=== PATIENT | male | born 1960 | race African-American/Black ===

== ENCOUNTER 2016-11-19 13:09 | Emergency (ER) | payer BC ==
--- NOTE | 2016-11-19 13:27 | EDPHY ---
H & P Time Seen by Provider: 11/19/16 13:27 Constitutional: Initial Vital Signs Temperature (C) 36.5 C 11/19/16 13:09 Heart Rate 97 11/19/16 13:09 Respiratory Rate 16 11/19/16 13:09 Blood Pressure 162/93 H 11/19/16 13:09 O2 Sat (%) 96 11/19/16 13:09 O2 Delivery Mode Room Air Allergies/Adverse Reactions: No Known Allergies Allergy (Verified 11/19/16 13:33) Home Medications: Medication Instructions Recorded Albuterol 11/19/16 Symbicort 160-4.5 Mcg Inh (*) 11/19/16 Medical Decision Making ED Course/Re-evaluation: CHIEF COMPLAINT: Alcohol intoxication, collar bone contusion HISTORY OF PRESENT ILLNESS: The patient is 56 y/o male arriving via EMS complaining of right collar bone pain after falling while intoxicated on the bus yesterday. He is also seeking help with detoxing from alcohol. His pain is mild in severity and does not affect his range of motion. He denies other injuries, loss of consciousness, weakness, or paresthesias. His last drink was today and he denies co-ingestion. Denies suicidal or homicidal behavior. REVIEW OF SYSTEMS: A 10 point review of systems was performed and is negative with the exception of the elements mentioned in the history of present illness. PHYSICAL EXAM: General Appearance: Alert, well hydrated, appropriate, and non-toxic appearing. Head: Atraumatic without scalp tenderness or obvious injury Eyes: Pupils equal, round, reactive to light and accommodation, EOMI, no trauma , no injection. Nose: Atraumatic, no rhinorrhea, clear. Throat: Mucus membranes moist. Neck: Supple, nontender, no lymphadenopathy. Respiratory: No retractions, no distress, no wheezes, and no accessory muscle use. Lungs are clear to auscultation bilaterally. Cardiovascular: Regular rate and rhythm, no murmurs, rubs, or gallops. Right radial pulse intact. Good capillary refill all extremities. Gastrointestinal: Abdomen is soft, nontender, non-distended, no masses, no rebound, no guarding, no peritoneal signs. Musculoskeletal: Normal active ROM of all extremities, atraumatic. Neurological: Alert, appropriate, and interactive. Nonfocal neuro exam. Skin: No rashes, good turgor, no nodules on palpation. PAST MEDICAL HISTORY: Alcohol abuse PAST SURGICAL HISTORY: Denies SOCIAL HISTORY: Daily alcohol use. Employed. DIFFERENTIAL DIAGNOSIS: The differential diagnosis for the patient's injury included but was not limited to fracture, ligamentous injury, contusion, muscular strain. MEDICAL DECISION MAKING: I serially examined this patient since the patient's arrival here in the emergency department. The patient continues to become more and more sober with each examination. I serially questioned the patient and the patient's story given initially has not changed. The patient still denies any other trauma, any head injury, and any illicit drug use. At this point, the patient is walking the department freely and is clinically sober. We're discharging the patient to the [facility] in stable condition. - Data Points Medications Given: Discontinued Medications Chlordiazepoxide (Librium 25 Mg Prepack#6) 1 btl TAKEHOME EDNOW ONE Stop: 11/19/16 13:45 Last Admin: 11/19/16 14:05 Dose: 1 btl Departure - Departure Disposition: Home, Routine, Self-Care Clinical Impression: Contusion Qualifiers: Encounter type: initial encounter Contusion area: shoulder Laterality: left Qualified Code(s): S40.012A - Contusion of left shoulder, initial encounter Alcoholic intoxication Qualifiers: Complication of substance-induced condition: uncomplicated Qualified Code(s): F10.920 - Alcohol use, unspecified with intoxication, uncomplicated Condition: Good Instructions: Alcohol Intoxication (ED), Alcohol Dependence (ED) Additional Instructions: Medically clear for detox. 1. Go directly to the [facility] for detox. You will be given a script for Librium to help with the detox process. 2. Follow up with a primary care provider in the next 1-2 weeks to establish care. Referrals: [facility] Detox 24 Hours [Outside] - As per Instructions Stand Alone Forms: Work Excuse Report Scribed for: Javier Nieto Report Scribed by: Sun Valera Date of Report: 11/19/16 Time of Report: 18:54
[2016-11-19 13:40] VITALS: BP 162/93; PULSE 97; RESP 16; TEMP 97.7; O2SAT 96
[2016-11-19] MEDS ORDERED: CHLORDIAZEPOXIDE 25MG PREPK#6 BTL TAKEHOME ONE (13:44)
== END 2016-11-19 14:06 | disposition home or self-care (01) ==
DX: S40.012A Contusion of left shoulder, initial encounter (principal); F10.920 Alcohol use, unspecified with intoxication, uncomplicated; W18.39XA Other fall on same level, initial encounter; Y92.811 Bus as the place of occurrence of the external cause

== ENCOUNTER 2017-01-14 03:30 | Emergency (ER) | payer BC ==
--- NOTE | 2017-01-14 03:32 | EDPHY ---
H & P HPI/ROS: HPI CHIEF COMPLAINT: Alcohol withdrawal, "I need librium" HISTORY OF PRESENT ILLNESS: This patient 56-year-old male, tells me he is an alcoholic and drinks vodka daily. His last drink was Friday night. He states that he decided call 911 this morning he feels like he is going to alcohol withdrawal. He states when he goes to alcohol draw feels like he can' t breathe gets panicky gets shaky. He states that he came to the emergency room tonight by EMS to obtain Librium. He denies any chest pain. Denies vomiting. Denies hallucinating. States he would like Librium so they can go work today. He has a job. He is employed lives in [place]. Would like Librium and then he would like to be discharged to go to work. Past Medical History: Daily alcohol use, alcoholism Past Surgical History: No recent surgery Social History: Daily alcohol use, smokes tobacco daily and marijuana. Denies other illicit drugs. Family History: Noncontributory ROS REVIEW OF SYSTEMS: A comprehensive 10 point review of systems is otherwise negative aside from elements mentioned in the history of present illness. Exam Constitutional appears well nontoxic no acute distress, slight odor of alcohol, triage nursing summary reviewed, vital signs reviewed, awake/alert. He is not tremulous. Not tachycardic. Vital signs are reviewed. No hypoxia. No tachypnea. Resting comfortably. Eyes normal conjunctivae and sclera, EOMI, PERRLA. HENT normal inspection, atraumatic, moist mucus membranes, no epistaxis, neck supple/ no meningismus, no raccoon eyes. Respiratory clear to auscultation bilaterally, normal breath sounds, no respiratory distress, no wheezing. Cardiovascular rate normal, regular rhythm, no murmur, no edema, distal pulses normal. Gastrointestinal soft, non-tender, no rebound, no guarding, normal bowel sounds, no distension, no pulsatile mass. Genitourinary no CVA tenderness. Musculoskeletal no midline vertebral tenderness, full range of motion, no calf swelling, no tenderness of extremities, no meningismus, good pulses, neurovascularly intact. Skin pink, warm, & dry, no rash, skin atraumatic. Neurologic awake, alert and oriented x 3, AAOx3, moves all 4 extremities equally, motor intact, sensory intact, CN II-XII intact, normal cerebellar, normal vision, normal speech. Psychiatric normal mood/affect. Heme/Lymph/Immune no lymphadenopathy. Differential Diagnosis: Includes but is not limited to: Alcohol withdrawal, anxiety, panic attack Medical Decision Making: Plan for this patient breath alcohol. 25 mg Librium. Re-evaluate. Re-evaluation: 0351AM: Breath alcohol 0.111 0402AM: The patient is requesting discharge. He standing at his door on the phone calling [facility]. He is requesting be discharged from the emergency room. He is resting comfortably no acute distress. Vital signs are stable. Source: Patient, EMS - Medical/Surgical History Hx Asthma: No Hx Chronic Respiratory Disease: Yes Hx Diabetes: No Hx Cardiac Disease: No Hx Renal Disease: No Hx Cirrhosis: No Hx Alcoholism: No Hx HIV/AIDS: No Hx Splenectomy or Spleen Trauma: No Other PMH: COPD - Social History Smoking Status: Current every day smoker Constitutional: Initial Vital Signs Temperature (C) 36.6 C 01/14/17 03:42 Heart Rate 74 01/14/17 03:42 Respiratory Rate 16 01/14/17 03:42 Blood Pressure 137/83 H 01/14/17 03:42 O2 Sat (%) 97 01/14/17 03:42 O2 Delivery Mode Room Air Allergies/Adverse Reactions: seasonal Allergy (Uncoded 01/14/17 03:41) Home Medications: Medication Instructions Recorded Albuterol 11/19/16 Symbicort 160-4.5 Mcg Inh (*) 11/19/16 Medical Decision Making - Data Points Medications Given: Discontinued Medications Chlordiazepoxide HCl (Librium) 25 mg PO EDNOW ONE Stop: 01/14/17 03:42 Last Admin: 01/14/17 03:48 Dose: 25 mg Departure - Departure Disposition: Home, Routine, Self-Care Clinical Impression: Alcohol withdrawal Qualifiers: Complication of substance-induced condition: uncomplicated Qualified Code(s): F10.230 - Alcohol dependence with withdrawal, uncomplicated Condition: Good Instructions: Alcohol Intoxication (ED) Referrals: Patient,NotPresent [Unknown] - As per Instructions
[2017-01-14] MEDS ORDERED: chlordiazePOXIDE 25 MG CAP PO ONE (03:41)
[2017-01-14 03:45] VITALS: BP 137/83; PULSE 74; RESP 16; TEMP 97.9; O2SAT 97
== END 2017-01-14 04:05 | disposition home or self-care (01) ==
LOC: EDUNIT# → EEVIPCON 03:30
DX: F10.230 Alcohol dependence with withdrawal, uncomplicated (principal); J44.9 Chronic obstructive pulmonary disease, unspecified; F17.200 Nicotine dependence, unspecified, uncomplicated

== ENCOUNTER 2017-04-28 18:23 | Emergency (ER) | payer BC, OTHER ==
[2017-04-28 18:35] VITALS: TEMP 97.9
--- NOTE | 2017-04-28 19:39 | EDPHY ---
H & P Time Seen by Provider: 04/28/17 19:37 HPI/ROS: Chief complaint. Groin pain HPI. The emergency department with rash on his penis and scrotum for 1 week. It is painful. He thinks he has shingles. He says he had similar symptoms under his armpits previously. Again it is painful. No drainage from penis but burning with urination. Unprotected sex 2 weeks ago. otherwise no testicular pain. No fever, vomiting. The sores on the penis began with blisters which have now unroofed. He has been using Neosporin on it and it seems to have spread somewhat to his anterior scrotum. ROS Constitutional. no fever/chills, no weakness Eyes. no problems with vision ENT. no sore throat, no nasal drainage Cardiovascular. no chest pain Respiratory. no shortness of breath, no cough Abdominal. no abdominal pain, no nausea/vomiting, no diarrhea . no problems urinating MS. no calf pain/swelling, no neck/back pain, no joint pain Skin. Blisters on penis that a broken. Sores on scrotum Lymph. no swollen glands Neuro. no headache, no dizziness, no difficulty walking or with speech Past Medical/Surgical History: COPD Social History: Single, daily smoker, no alcohol Smoking Status: Current every day smoker Physical Exam: General Appearance: Alert well-developed male mild distress vital signs stable Eyes: Pupils equal and round no pallor or injection. ENT, Mouth: Mucous membranes are moist. Respiratory: There are no retractions, lungs are clear to auscultation. Cardiovascular: Regular rate and rhythm. Gastrointestinal: Abdomen is soft and nontender, no masses, bowel sounds normal. Neurological: Awake and alert, sensory and motor exams grossly normal. Skin: Ulcerations at the base of the glans on the dorsum of the penis. The appearance of a few vesicles. Testicles are normal. There is superficial ulceration on the anterior aspect of the scrotum. Musculoskeletal: Neck is supple nontender. Extremities symmetrical, full range of motion. Psychiatric: Patient is oriented X 3, there is no agitation. Constitutional: Initial Vital Signs Temperature (C) 36.6 C 04/28/17 18:30 Heart Rate 123 H 04/28/17 18:30 Respiratory Rate 18 04/28/17 18:30 Blood Pressure 136/87 H 04/28/17 18:30 O2 Sat (%) 93 04/28/17 18:30 O2 Delivery Mode Room Air Allergies/Adverse Reactions: seasonal Allergy (Uncoded 01/14/17 03:41) Home Medications: Medication Instructions Recorded Albuterol 11/19/16 Symbicort 160-4.5 Mcg Inh (*) 11/19/16 Acyclovir [Zovirax 200 mg (*)] 200 mg PO 5XD #50 cap 04/28/17 Doxycycline Hyclate 100 mg PO BID #14 tab 04/28/17 Hydrocodone/APAP 5/325 [[place] 1 each PO Q4-6PRN PRN #14 tab 04/28/17 5/325 (*)] Medical Decision Making Procedures: Culture is taken. Ceftriaxone IM. Doxycycline and acyclicovir in the department. ED Course/Re-evaluation: Patient remained stable. Patient and I discussed tentative diagnosis, treatment plan including criteria for return importance of follow-up and further evaluation. He expresses understanding and agreement Differential Diagnosis: It appears that this is most likely new onset herpes. I cannot rule out GC and chlamydia and will be treated for both as well. Departure - Departure Disposition: Home, Routine, Self-Care Clinical Impression: Herpes genitalis in men Condition: Good Instructions: Genital Herpes Simplex (ED) Additional Instructions: Gentle cleaning of rash with water and washcloth daily. May use antibiotic ointment on the rash. Acyclovir and doxycycline for rash. Hydrocodone for pain. Return for worsening symptoms. Follow up with Dr. Short with Infectious Disease in the next 2-3 days without fail. Referrals: NONE *PRIMARY CARE P,. [Primary Care Provider] - As per Instructions Javier Short MD [Medical Doctor] - 2-3 days without fail Prescriptions: Acyclovir [Zovirax 200 mg (*)] 200 mg PO 5XD #50 cap Doxycycline Hyclate 100 mg PO BID #14 tab Hydrocodone/APAP 5/325 [[place] 5/325 (*)] 1 each PO Q4-6PRN PRN #14 tab PRN Reason: Pain, Moderate
[2017-04-28] MEDS ORDERED: CEFTRIAXONE IM 350 MG/ML SYRINGE IM ONE (19:51)
[2017-04-28] MEDS ORDERED: DOXYCYCLINE HYCLATE 100 MG CAP/TAB PO ONE (19:51)
[2017-04-28] MEDS ORDERED: ACYCLOVIR 400 MG TAB PO ONE (19:53)
[2017-04-28] MEDS ORDERED: HYDROCOD/APAP 5/325 PREPACK#6 BTL TAKEHOME ONE (19:54)
[2017-04-28 20:46] VITALS: BP 138/88; PULSE 88; RESP 16; O2SAT 96
[2017-05-01 13:28] LABS: SPECIMEN SOURCE PENIS
== END 2017-04-28 20:45 | disposition home or self-care (01) ==
DX: A60.02 Herpesviral infection of other male genital organs (principal); J44.9 Chronic obstructive pulmonary disease, unspecified; F17.200 Nicotine dependence, unspecified, uncomplicated
CPT/HCPCS: 87529-90; J0696

== ENCOUNTER 2017-05-04 12:43 | Emergency (ER) | payer OTHER ==
[2017-05-04] MEDS ORDERED: NS 500 ML IV ONE (13:19)
--- NOTE | 2017-05-04 13:24 | EDPHY ---
H & P Time Seen by Provider: 05/04/17 12:56 HPI/ROS: HPI Passed out. 56-year-old male by ambulance. This patient was in [facility]. He was at a restaurant area outside. He reports he had been sitting. He reports that he got up to talk to a woman, shortly after he stood up he states he fell to the ground and lost consciousness. He reports a sensation of lightheadedness coming over him just prior to losing consciousness. He denies any associated headache, chest pain, no palpitations, no shortness of breath. He denies any loss of sensation or weakness in his extremities. A cervical collar was placed by EMS but he denies any neck pain. He has no complaints at the time of my evaluation. ROS: Constitutional: No fever, no chills. No weakness. As above. Eyes: No discharge. No changes in vision. ENT: No sore throat. No nasal congestion or rhinorrhea. Respiratory: No cough. No shortness of breath. Cardiac: No chest pain, no palpitations. Gastrointestinal: No abdominal pain, no vomiting, no diarrhea. Genitourinary: No hematuria. No dysuria or increased frequency with urination. Musculoskeletal: No back pain. No neck pain. No myalgias or arthralgias. Skin: No rashes. Neurological: No headache. No focal weakness or altered sensation. Past medical history: COPD, shingles, herpes genitalis. The patient was just seen here several days ago and diagnosed with herpes genitalis. He was prescribed doxycycline, hydrocodone and acyclovir. He reports he has been taking his medications. He reports he is out of his pain medications and is requesting more Vicodin. Social history: Heavy smoker both cigarettes and marijuana. Denies alcohol. Denies other IV drugs or street drugs. Physical Exam: General Appearance: Alert, no distress. This patient is responding to questions appropriately and in full sentences. This patient appears well- hydrated and well-nourished. Head: Normocephalic atraumatic except for a small, 1 cm nonsuturable laceration just lateral to the left eye. Face: Facial bones are stable on palpation. Eyes: Pupils equal and round and reactive to light, no pallor or injection. No lid erythema or edema. ENT, Mouth: Mucous membranes moist. Dentition is intact. No malocclusion of the jaw. No tongue lacerations or abrasions. Pharynx is clear. The bilateral nasal canals are clear. No septal hematoma. Respiratory: There are no retractions, lungs are clear to auscultation with good air movement bilaterally. Chest wall is stable to AP and lateral palpation. Cardiovascular: Regular rate and rhythm. No murmur. Neurological: Motor sensory function is intact. Cranial nerves are normal. Cerebellar function intact. Skin: Warm and dry. No lacerations, abrasions or contusions. Musculoskeletal: Neck is supple and nontender. The trachea is midline. No midline cervical, thoracic, lumbar or sacral tenderness on palpation. No flank tenderness on palpation. Extremities are symmetrical, full range of motion. All joints in the bilateral upper and bilateral lower extremities range without pain or impingement. No tenderness on palpation of the long bones in the bilateral upper and bilateral lower extremities. Psychiatric: No agitation. No depression. Database: EKG: EKG time is 1:24 p.m.; EKG shows a narrow complex normal sinus rhythm with a ventricular rate of 64. The CA, QRS, QT intervals are within normal limits. There are no ST-T wave changes indicative of ischemic or injury pattern. Probable left ventricular hypertrophy. No evidence of right heart strain. No evidence of Brugada syndrome, WPW, hypertrophic cardiomyopathy. Interpreted by me. Imaging: Procedures: Emergency department course: Vital signs reviewed and are normal except for some mild hypertension. Patient reports to me that the main reason he came to the emergency department was to get more pain medication to treat his herpes genitalis. He has been taking his acyclovir. His cervical collar was clinically cleared. 1:50 p.m., patient admits to drinking 4 shots of alcohol prior to standing and having this syncopal event. 2:00 p.m., patient re-evaluated. Resting comfortably at this time. Vital signs reviewed and are unremarkable. Results of blood work and EKG discussed with the patient. He has been asymptomatic in the emergency department. Repeat neurologic Assessment is nonfocal. He again is asking for refill of his Vicodin above. I agreed to give him a new prescription for 10 pills. He has been instructed to follow up with his primary care physician for further management of his herpes genitalis. His workup in the emergency department has been reassuring. His history is consistent with a vasovagal type syncopal episode. Return to emergency department precautions reviewed with him. Follow- up discussed. All of his questions were answered. He was discharged in good condition. Patient wanted to be discharged prior to obtaining results of his chemistry panel. This shows a low potassium at 2.5. He does not have any associated EKG changes. We have called the patient back. I have written a prescription for potassium supplement. Plan will be to have him follow up with his primary care physician in 3 days for recheck of his potassium. Differential Diagnosis: The differential diagnosis on this patient includes but is not limited to vasovagal syncope, needs refill of pain medication. Subarachnoid hemorrhage, pulmonary embolism, acute coronary syndrome, arrhythmia, other cardiac etiology of syncope unlikely. This represents a partial list of diagnoses considered. These considerations are based on history, physical exam, past history, reassessment and diagnostic testing. Smoking Status: Current every day smoker Constitutional: Initial Vital Signs Temperature (C) 36.8 C 05/04/17 12:46 Heart Rate 79 05/04/17 12:46 Respiratory Rate 18 05/04/17 12:46 Blood Pressure 146/79 H 05/04/17 12:46 O2 Sat (%) 95 05/04/17 12:46 O2 Delivery Mode Room Air O2 (L/minute) 2 Allergies/Adverse Reactions: seasonal Allergy (Uncoded 01/14/17 03:41) Home Medications: Medication Instructions Recorded Albuterol 11/19/16 Symbicort 160-4.5 Mcg Inh (*) 11/19/16 Acyclovir [Zovirax 200 mg (*)] 200 mg PO 5XD #50 cap 04/28/17 Doxycycline Hyclate 100 mg PO BID #14 tab 04/28/17 Hydrocodone/APAP 5/325 [[place] 1 each PO Q4-6PRN PRN #14 tab 04/28/17 5/325 (*)] Hydrocodone/APAP 5/325 [[place] 1 - 2 tab PO Q4-6PRN PRN #10 tab 05/04/17 5/325 (*)] Potassium Chloride 20 meq PO TID #10 packet 05/04/17 Medical Decision Making - Data Points Laboratory Results: Laboratory Results 05/04/17 13:00 05/04/17 13:00 05/04/17 05/04/17 13:00 13:00 WBC 3.54 10^3/uL L 10^3/uL (3.80-9.50) RBC 3.48 10^6/uL L 10^6/uL (4.40-6.38) Hgb 12.7 g/dL L g/dL (13.7-17.5) Hct 35.4 % L % (40.0-51.0) MCV 101.7 fL H fL (81.5-99.8) MCH 36.5 pg H pg (27.9-34.1) MCHC 35.9 g/dL g/dL (32.4-36.7) RDW 12.6 % % (11.5-15.2) Plt Count 235 10^3/uL 10^3/uL (150-400) MPV 9.2 fL fL (8.7-11.7) Neut % (Auto) Not Reported Lymph % (Auto) Not Reported [place] % (Auto) Not Reported Eos % (Auto) Not Reported Baso % (Auto) Not Reported Nucleat RBC Rel Count 0.0 % % (0.0-0.2) Absolute Neuts (auto) Not Reported Absolute Lymphs (auto) Not Reported Absolute Monos (auto) Not Reported Absolute Eos (auto) Not Reported Absolute Basos (auto) Not Reported Absolute Nucleated RBC 0.00 10^3/uL 10^3/uL (0-0.01) Immature Gran % Not Reported Seg Neutrophils % 32 % % Lymphocytes % 41 % % Monocytes % 25 % % Eosinophils % 1 % % Basophils % 1 % % Immature Gran # Not Reported Absolute Seg Neuts 1.13 10^/uL L 10^/uL (1.70-6.50) Absolute Lymphocytes 1.45 10^3/uL 10^3/uL (1.00-3.00) Absolute Monocytes 0.89 10^3/uL H 10^3/uL (0.30-0.80) Absolute Eosinophils 0.04 10^3/uL 10^3/uL (0.03-0.40) Absolute Basophils 0.04 10^3/uL 10^3/uL (0.02-0.10) Platelet Estimate ADEQUATE (ADEQ) Oval Macrocytes 1+ H Smear Review By Pending Sodium 147 mEq/L H mEq/L (134-144) Potassium 2.5 mEq/L L* mEq/L (3.5-5.2) Chloride 101 mEq/L mEq/L (97-110) Carbon Dioxide 28 mEq/l mEq/l (22-31) Anion Gap 18 mEq/L H mEq/L (8-16) BUN 15 mg/dL mg/dL (7-23) Creatinine 0.8 mg/dL mg/dL (0.7-1.3) Estimated GFR > 60 Glucose 128 mg/dL H mg/dL (70-100) Calcium 9.0 mg/dL mg/dL (8.5-10.4) Medications Given: Discontinued Medications Sodium Chloride (Ns) 500 mls @ 1,000 mls/hr IV EDNOW ONE PRN Reason: Protocol Stop: 05/04/17 13:48 Last Admin: 05/04/17 13:31 Dose: 500 mls Departure - Departure Disposition: Home, Routine, Self-Care Clinical Impression: Syncope and collapse, Hypokalemia Condition: Good Instructions: Syncope (ED) Additional Instructions: Read and follow provided instructions. Follow-up with your primary care physician in 2-3 days for re-evaluation. Have your primary care physician recheck her potassium at this time. Discussed further pain medication prescriptions with your primary care physician. Continue taking your shingles medications as prescribed. Take potassium supplement as prescribed over 3 days. [place]/Percocet dosin-2 every 4-6 [address] for [address] Do not drive on this medication. Return to the emergency department for lightheadedness, palpitations, chest pain , shortness of breath or other serious concerns. Do not drink alcohol. Referrals: Patient,NotPresent [Unknown] - As per Instructions [facility],. [Clinic] - As per Instructions Prescriptions: Hydrocodone/APAP 5/325 [[place] 5/325 (*)] 1 - 2 tab PO Q4-6PRN PRN #10 tab PRN Reason: Pain, Moderate Potassium Chloride 20 meq PO TID #10 packet
--- NOTE | 2017-05-04 13:26 | CPEKG ---
Heart Rate: 64 RR Interval: 938 P-R Interval: 180 QRSD Interval: 102 QT Interval: 472 QTC Interval: 487 P [place]: 70 QRS [place]: 85 T Wave [place]: 74 EKG Severity - ABNORMAL ECG - EKG Impression: SINUS RHYTHM EKG Impression: PROBABLE LEFT VENTRICULAR HYPERTROPHY EKG Impression: BORDERLINE PROLONGED QT INTERVAL Electronically Signed By: Ethan Gil 04-May-2017 20:35:32
[2017-05-04 13:33] LABS: ADD DIFF? YES; ADD MORPH? NO; ADD SCAN? NO; ATYPICAL LYMPHOCYTE FLAG 70 (0-99); FRAGMENT RBC FLAG 0 (0-99); HEMATOCRIT 35.4 % (40.0-51.0); HEMOGLOBIN 12.7 g/dL (13.7-17.5); LEFT SHIFT FLG 0 (0-99); LIPEMIA HEMOLYSIS FLAG 90 (0-99); MEAN CELL HEMOGLOBIN 36.5 pg (27.9-34.1); MEAN CELL HEMOGLOBIN CONCENTR. 35.9 g/dL (32.4-36.7); MEAN CELL VOLUME 101.7 fL (81.5-99.8); MEAN PLATELET VOLUME 9.2 fL (8.7-11.7); PLATELET CLUMPS FLAG 0 (0-99); PLATELET COUNT 235 10^3/uL (150-400); RED BLOOD CELL COUNT 3.48 10^6/uL (4.40-6.38); RED CELL DISTRIBUTION WIDTH 12.6 % (11.5-15.2)
[2017-05-04 14:14] VITALS: BP 155/85; PULSE 69; RESP 18; TEMP 98.4; O2SAT 92
[2017-05-04 14:21] LABS: ANION GAP 18 mEq/L (8-16); CARBON DIOXIDE 28 mEq/l (22-31); CHLORIDE 101 mEq/L (97-110); CREATININE 0.8 mg/dL (0.7-1.3); GLOMERULAR FILTRATION RATE > 60; GLUCOSE 128 mg/dL (70-100); SODIUM 147 mEq/L (134-144)
[2017-05-04 14:26] LABS: POTASSIUM 2.5 mEq/L (3.5-5.2)
[2017-05-04 14:28] LABS: MACROCYTES 1+; PLATELET ESTIMATE ADEQUATE (ADEQ)
== END 2017-05-04 14:12 | disposition home or self-care (01) ==
LOC: EDUNIT#
DX: E87.6 Hypokalemia (principal); R55 Syncope and collapse; J44.9 Chronic obstructive pulmonary disease, unspecified; F17.210 Nicotine dependence, cigarettes, uncomplicated

== ENCOUNTER 2017-05-16 07:30 | Emergency (ER) | payer OTHER ==
[2017-05-16] MEDS ORDERED: HYDROCODONE/APAP 5/325 TAB PO ONE (09:01)
[2017-05-16] MEDS ORDERED: IBUPROFEN 600 MG TAB PO ONE (09:01)
--- NOTE | 2017-05-16 09:05 | EDPHY ---
H & P Time Seen by Provider: 05/16/17 07:53 HPI/ROS: HPI Rash on groin and penis. 56-year-old male by private vehicle. This patient was seen in our emergency department on the 28 of April. He was diagnosed with genital herpes. He was prescribed acyclovir and doxycycline. He reports that his symptoms improved on this medication. He reports that he stopped taking this medication about 5 days ago and his rash and pain have come back. He has an appointment at the [facility] for infectious disease on May 23. He denies fever. He is asking for new prescriptions for antibiotics and pain medication. ROS: Constitutional: No fever, no chills. No weakness. Eyes: No discharge. No changes in vision. ENT: No sore throat. No nasal congestion or rhinorrhea. Respiratory: No cough. No shortness of breath. Cardiac: No chest pain, no palpitations. Gastrointestinal: No abdominal pain, no vomiting, no diarrhea. Genitourinary: No hematuria. No dysuria or increased frequency with urination. As above. Musculoskeletal: No back pain. No neck pain. No myalgias or arthralgias. Skin: As above. Neurological: No headache. No focal weakness or altered sensation. Past medical history: As above. COPD. Social history: Single. Every day smoker. No alcohol. Physical Exam: General Appearance: Alert, no distress. This patient is responding to questions appropriately and in full sentences. This patient appears well- hydrated and well-nourished. Eyes: Pupils equal and round no pallor or injection. No lid edema, erythema or injection. : Significant for a herpetic vesicular like rash on the underside of his penis and proximal aspect of anterior mid scrotum. It is tender to the touch. It is not significantly edematous. There is no crepitus. It does not extend beyond these areas. Neurological: Motor sensory function is grossly intact. Cranial nerves are normal. Gait is normal. Skin: Warm and dry, as above. Musculoskeletal: Neck is supple and nontender. Extremities are symmetrical. All joints range without pain or impingement. Psychiatric: No agitation. No depression. Database: EKG: Imaging: Procedures: Emergency department course: Patient's emergency department visit from early April reviewed. His serology for herpes simplex virus was negative. He was prescribed acyclovir and doxycycline at that time. Possible etiologies chlamydia. He will be covered for both this as well as gonorrhea and herpetic infection. He was given 2 [place] tablets, 600 mg of ibuprofen for pain. He was given 1000 mg of valacyclovir, 250 mg of intramuscular ceftriaxone and 1 g of oral azithromycin. GC and chlamydia serology sent. Patient will be discharged with a prescription for valacyclovir. He has follow-up at the [facility] on May 23. Return to emergency department precautions reviewed with him. All of his questions were answered. He was discharged in good condition. Differential Diagnosis: The differential diagnosis on this patient includes but is not limited to STI, herpetic infection, chlamydia. Necrotizing fasciitis unlikely. This represents a partial list of diagnoses considered. These considerations are based on history, physical exam, past history, reassessment and diagnostic testing. Smoking Status: Current every day smoker Constitutional: Initial Vital Signs Heart Rate 81 05/16/17 07:33 Respiratory Rate 19 05/16/17 07:33 Blood Pressure 158/87 H 05/16/17 07:33 O2 Sat (%) 95 05/16/17 07:33 O2 Delivery Mode Room Air Allergies/Adverse Reactions: seasonal Allergy (Uncoded 01/14/17 03:41) Home Medications: Medication Instructions Recorded Albuterol 11/19/16 Symbicort 160-4.5 Mcg Inh (*) 11/19/16 Acyclovir [Zovirax 200 mg (*)] 200 mg PO 5XD #50 cap 04/28/17 Doxycycline Hyclate 100 mg PO BID #14 tab 04/28/17 Hydrocodone/APAP 5/325 [[place] 1 each PO Q4-6PRN PRN #14 tab 04/28/17 5/325 (*)] Hydrocodone/APAP 5/325 [[place] 1 - 2 tab PO Q4-6PRN PRN #10 tab 05/04/17 5/325 (*)] Potassium Chloride 20 meq PO TID #10 packet 05/04/17 Hydrocodone/APAP 5/325 [[place] 1 - 2 tab PO Q4-6PRN PRN #10 tab 05/16/17 5/325 (*)] Valacyclovir HCl [Valtrex] 1,000 mg PO TID #21 tab 05/16/17 Departure - Departure Disposition: Home, Routine, Self-Care Clinical Impression: Genital infection Condition: Good Instructions: Genital Herpes Simplex (ED), Chlamydia (ED) Additional Instructions: Read and follow provided instructions. Follow-up with Infectious Disease as scheduled at the [facility] on May 23. Take medication as prescribed through entire course of treatment. Ibuprofen dosin mg every 6 hours with meals for the next 3 days only. [place]/Percocet dosin-2 every 4-[address] for [address] not drive on this medication. Return to the emergency department for worsening symptoms, worsening pain, swelling, spreading of the rash, fever or other serious concerns. Referrals: NONE *PRIMARY CARE P,. [Primary Care Provider] - As per Instructions Prescriptions: Hydrocodone/APAP 5/325 [[place] 5/325 (*)] 1 - 2 tab PO Q4-6PRN PRN #10 tab PRN Reason: Pain, Moderate Valacyclovir HCl [Valtrex] 1,000 mg PO TID #21 tab
[2017-05-16] MEDS ORDERED: AZITHROMYCIN 250 MG TAB PO ONE (09:06)
[2017-05-16] MEDS ORDERED: CEFTRIAXONE IM 350 MG/ML SYRINGE IM ONE (09:06)
[2017-05-16] MEDS: valACYclovir 500 MG TAB PO ONE ×2 (09:25→09:37)
[2017-05-16 10:41] VITALS: BP 179/91; PULSE 67; RESP 18; TEMP 98.4; O2SAT 96
[2017-05-20 12:45] LABS: GC AMPLIFICATION GENPROBE NEGATIVE (NEGATIVE)
== END 2017-05-16 10:50 | disposition home or self-care (01) ==
DX: N49.9 Inflammatory disorder of unspecified male genital organ (principal); J44.9 Chronic obstructive pulmonary disease, unspecified; F17.200 Nicotine dependence, unspecified, uncomplicated
CPT/HCPCS: J0696

== ENCOUNTER 2017-05-24 22:46 | Observation (INO) | payer OTHER ==
--- NOTE | 2017-05-24 23:00 | EDPHY ---
H & P HPI/ROS: Chief Complaint: Alcohol intoxication, groin pain HPI: 56-year-old male known alcoholic being brought in after police were called for a welfare check. Patient was found in a disheveled residence extremely intoxicated. There are multiple bottles of vodka in the residence per EMS. He was unable to stand or walk on his own. He does complain of pain in his testicles. He has been seen here recently for this and started on antiviral medications. He was supposed to go to the [facility] yesterday for follow-up but failed to do so. He thinks that it might be getting a little bit better. He has been taking his medications. No fevers or chills. No abdominal pain. No nausea or vomiting. ROS: 10 point Review of Systems is negative except as noted in the HPI. PMH: COPD Social History: Positive smoking, daily alcohol, no recreational drug use Family History: non-contributory Physical Exam: Gen: Awake, Alert, slurred speech, smells of alcohol HEENT: Nose: no rhinorrhea Eyes: PERRLA, EOMI Mouth: Moist mucosa Neck: Supple, no JVD Chest: nontender, lungs clear to auscultation Heart: S1, S2 normal, no murmur Abd: Soft, non-tender, no guarding : Patient has an excoriated rash on his left scrotum and the base and shaft of his penis extending to the glans, rash extends beyond the scrotum to the medial aspect of his left leg. There is no crepitus. It is tender to the touch. There is purulent discharge. Back: no CVA tenderness, no midline tenderness Ext: no edema, non-tender Skin: no rash Neuro: CN II-XII intact, Sensation grossly intact, Strength 5/5 in bilateral upper and lower extremities - Medical/Surgical History Hx Asthma: No Hx Chronic Respiratory Disease: Yes Hx Diabetes: No Hx Cardiac Disease: No Hx Renal Disease: No Hx Cirrhosis: No Hx Alcoholism: Yes Hx HIV/AIDS: No Hx Splenectomy or Spleen Trauma: No Other PMH: COPD. shingles - Social History Smoking Status: Current every day smoker Constitutional: Initial Vital Signs Temperature (C) 36.6 C 05/24/17 22:46 Heart Rate 79 05/24/17 22:46 Respiratory Rate 18 05/24/17 22:46 Blood Pressure 137/83 H 12/30/17 22:46 O2 Sat (%) 96 05/24/17 22:46 O2 Delivery Mode Room Air Allergies/Adverse Reactions: seasonal Allergy (Uncoded 05/24/17 23:02) Home Medications: Medication Instructions Recorded Albuterol 11/19/16 Symbicort 160-4.5 Mcg Inh (*) 11/19/16 Acyclovir [Zovirax 200 mg (*)] 200 mg PO 5XD #50 cap 04/28/17 Doxycycline Hyclate 100 mg PO BID #14 tab 04/28/17 Hydrocodone/APAP 5/325 [[place] 1 each PO Q4-6PRN PRN #14 tab 04/28/17 5/325 (*)] Hydrocodone/APAP 5/325 [[place] 1 - 2 tab PO Q4-6PRN PRN #10 tab 05/04/17 5/325 (*)] Potassium Chloride 20 meq PO TID #10 packet 05/04/17 Hydrocodone/APAP 5/325 [[place] 1 - 2 tab PO Q4-6PRN PRN #10 tab 05/16/17 5/325 (*)] Valacyclovir HCl [Valtrex] 1,000 mg PO TID #21 tab 05/16/17 Medical Decision Making ED Course/Re-evaluation: Patient brought in for evaluation for increasing alcohol use is unable to walk. He has been treated for an infection in his genital area. Initially seen on the of this month and again on the . Patient has been on antivirals and on antibiotics to treat sexually transmitted disease. Serology for these has all been negative. He continues to have a significantly excoriated rash with purulent discharge. There is no crepitus or any other findings suggestive of Fourney's gangrene. Unfortunately because of his persistent alcohol use he did not follow up at [facility] yesterday. Will check a CBC and labs at this time. I am concerned that is infections continuing to progress and he is not getting adequate treatment for this and his treatment is being impaired by his chronic alcohol use. Patient's blood alcohol is 572 while he was walking and talking. I think he is gravely disabled from his alcohol use and is presenting with follow-up as an outpatient. Patient has a likely secondarily infected genital herpes outbreak which is not had any significant improvement since the . He now has purulence. He has not have a leukocytosis. Her given in his inability to follow up and the lack of improvement patient be admitted for Infectious Disease consultation and case management involvement. I have discussed with Dr. Heaton, hospitalist. She will admit to her service for further treatment - Data Points Laboratory Results: Laboratory Results 05/24/17 22:55 05/24/17 22:55 05/24/17 05/24/17 22:55 22:55 WBC 4.21 10^3/uL 10^3/uL (3.80-9.50) RBC 3.91 10^6/uL L 10^6/uL (4.40-6.38) Hgb 14.8 g/dL g/dL (13.7-17.5) Hct 40.5 % % (40.0-51.0) MCV 103.6 fL H fL (81.5-99.8) MCH 37.9 pg H pg (27.9-34.1) MCHC 36.5 g/dL g/dL (32.4-36.7) RDW 13.4 % % (11.5-15.2) Plt Count 223 10^3/uL 10^3/uL (150-400) MPV 9.0 fL fL (8.7-11.7) Neut % (Auto) 41.9 % % (39.3-74.2) Lymph % (Auto) 42.0 % % (15.0-45.0) [place] % (Auto) 13.3 % H % (4.5-13.0) Eos % (Auto) 0.2 % L % (0.6-7.6) Baso % (Auto) 2.1 % H % (0.3-1.7) Nucleat RBC Rel Count 0.0 % % (0.0-0.2) Absolute Neuts (auto) 1.76 10^3/uL 10^3/uL (1.70-6.50) Absolute Lymphs (auto) 1.77 10^3/uL 10^3/uL (1.00-3.00) Absolute Monos (auto) 0.56 10^3/uL 10^3/uL (0.30-0.80) Absolute Eos (auto) 0.01 10^3/uL L 10^3/uL (0.03-0.40) Absolute Basos (auto) 0.09 10^3/uL 10^3/uL (0.02-0.10) Absolute Nucleated RBC 0.00 10^3/uL 10^3/uL (0-0.01) Immature Gran % 0.5 % % (0.0-1.1) Immature Gran # 0.02 10^3/uL 10^3/uL (0.00-0.10) Sodium 154 mEq/L H mEq/L (134-144) Potassium 2.9 mEq/L L mEq/L (3.5-5.2) Chloride 105 mEq/L mEq/L (97-110) Carbon Dioxide 29 mEq/l mEq/l (22-31) Anion Gap 20 mEq/L H mEq/L (8-16) BUN 6 mg/dL L mg/dL (7-23) Creatinine 0.8 mg/dL mg/dL (0.7-1.3) Estimated GFR > 60 Glucose 98 mg/dL mg/dL (70-100) Calcium 8.7 mg/dL mg/dL (8.5-10.4) Ethyl Alcohol 572 mg/dL H* mg/dL (0-10) Medications Given: Discontinued Medications Ketorolac Tromethamine (Toradol) 15 mg IVP EDNOW ONE Stop: 05/24/17 23:44 Last Admin: 05/24/17 23:50 Dose: 15 mg Departure - Departure Disposition: [facility] Clinical Impression: Alcoholic intoxication, Scrotal infection Condition: Fair Referrals: NONE *PRIMARY CARE P,. [Primary Care Provider] - As per Instructions
[2017-05-24] MEDS ORDERED: KETOROLAC 30 MG/1 ML SDV ONE (23:43)
[2017-05-24] MEDS ORDERED: KETOROLAC 15 MG/1 ML SDV IVP ONE (23:43)
[2017-05-25 00:50] LABS: PLATELET COUNT 223 10^3/uL (150-400)
[2017-05-25] MEDS ORDERED: HYDROCODONE/APAP 5/325 TAB PO PRN (01:27)
[2017-05-25] MEDS ORDERED: ONDANSETRON 4 MG/2 ML VIAL IVP PRN (01:27)
[2017-05-25] MEDS ORDERED: ONDANSETRON DISINTEGRATING 4 MG TAB PO PRN (01:27)
[2017-05-25] MEDS ORDERED: PROTOCOL POTASSIUM 1 DOSE MISC PRN (01:46)
[2017-05-25] MEDS ORDERED: PROTOCOL MAGNESIUM 1 DOSE IV PRN (01:46)
[2017-05-25] MEDS ORDERED: PROTOCOL K PHOSPHATE 1 DOSE IV PRN (01:46)
[2017-05-25] MEDS ORDERED: POTASSIUM CL 20 MEQ/15 ML UDCUP PO ONE (03:00)
[2017-05-25] MEDS: POTASSIUM Cl (KCl) 40 MEQ in D5W 1/2 NS 1,000 ML IV SCH ×2 (03:55→18:01)
--- NOTE | 2017-05-25 05:29 | GHP ---
[f rep st] HISTORY AND PHYSICAL DATE OF ADMISSION: 05/25/2017 SOURCE: Patient provides history, is intoxicated but still conversant and consistent with his answer s for past medical history. HISTORY OF PRESENT ILLNESS: This is a 56-year-old gentleman with a past medical history significant for alcohol dependence with a history of withdrawals, recently diagnosed genital herpes infection at the beginning of April 2017, electrolyte abnormalities related to his alcohol intake, particularly hypokalemia, COPD, and a history of shingles, who presents to the emergency department today after a local police department assessed the patient for a welfare check. Patient was found in his home in disarray, surrounded by multiple bottles of vodka. The patient was unable to stand and so he was bro ught to the emergency department via EMS. The patient reports that he has had a significant increase in his alcohol use from his baseline secondary to worsening left inguinal scrotal pain. The patient is drinking approximately a pint of vodka daily, if not more. He is complaining of significant pain and reports that despite receiving prescriptions for [place] in the emergency department, he continues to have severe pain and has run out of medications so he is self treating with alcohol. He reports increasing drainage, pain, worse on the left. He reports some dysuria, hematuria, and urethral disch arge. He reports some chills. No fevers. PATIENT'S PROGRESSION OF DISEASE: He presented to the emergency department initially on 04/28/2017 w ith complaints of 1 week of worsening left inguinal pain and scrotal pain. He was diagnosed with gen ital herpes. He was started on acyclovir and doxycycline. He reports that he completed 5 days of tr eatment with some improvement initially in his pain. [facility]2017, [facility] syncopal episode which was attributed to either vasovagal response and/or alcohol intoxication. He presented again on 05/16/2017 with complaints of worsening inguinal rash an d pain and was treated for possible STIs and antiviral was changed to a valacyclovir. The patient wa s given a dose of azithromycin and Rocephin. Serologies for gonorrhea and chlamydia were negative. HSV swab PCR was also negative. This evening patient had a welfare check called. PD found the patie nt intoxicated, unable to stand, surrounded in disarrayed living conditions. The patient was referred to [facility], which he did not keep his appointment s cheduled for 05/23/2017 as he was intoxicated. REVIEW OF SYSTEMS: No fevers, chills, and skin changes as noted above. Otherwise, remainder review of systems is negative. ALLERGIES: No known drug allergies. HOME MEDICATIONS: Patient has been taking ibuprofen and there is a question of compliance with his m edications. PAST MEDICAL HISTORY: Alcohol dependence with history withdrawals, genital herpes, hypokalemia, COPD , shingles. PAST SURGICAL HISTORY: Significance for tonsillectomy, adenoidectomy, and appendectomy. FAMILY HISTORY: Patient denies. 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 He is ginoa deandre from [place], [place] and is only in [place] for work with plans to return at some point. He is a with service related to the [employer]. He does smoke 1/2 pack per day for many years and dr inking 1 pint of vodka daily. He denies any illicit drug use. CODE STATUS: Full. PHYSICAL EXAMINATION: VITAL SIGNS: Upon arrival to the emergency department, blood pressure is 137/ 83, heart rate 79, respiratory rate 18, O2 saturation 96% on room air, temperature 36.6. Current vit als available, blood pressure 163/95, heart rate is 93, respiratory rate 16, O2 sat is 96% on 2 L by nasal cannula, temperature 36.9. GENERAL: No acute distress. Patient is lying in bed, slightly res tless, but he is awake. He is complaining of pain. He is talkative and interactive. HEENT: Head i s normocephalic, atraumatic. Eyes: Extraocular muscles grossly intact. No scleral icterus or conju nctival injection. Pupils are equal, round, slightly decreased reactivity to light bilaterally and s ymmetric. No scleral icterus. Some mild conjunctival injection. ENT: Mucous membranes appear slig htly dry. No oropharyngeal erythema or exudates. NECK: Supple. Trachea midline. CV: Regular rat e and rhythm, slightly tachy in the 90s. No murmurs, rubs, or gallops appreciated. ABDOMEN: Positi ve bowel sounds, soft, nontender to palpation. No rebound, guarding, or masses appreciated. RESPIRA TORY: The patient's lungs are clear to auscultation bilaterally. No wheezes, rales, or rhonchi appr eciated. : No Ortiz catheter in place. Normal external male genitalia with some erythema in the scrotum, but there is no induration or fluctuance. The patient's inguinal region also with some ulce rated lesions with thick malodorous, almost purulent, drainage. MUSCULOSKELETAL: Strength grossly i ntact. Patient moves all extremities. Able to sit up independently. NEURO: Grossly nonfocal. No facial drooping. Patient is awake, alert, oriented to person and place. He is intoxicated but still able to recall adequately and consistently. PSYCH: Patient is slightly restless. He is requesting pain medications multiple times during the interview. Affect is flat. The patient again is intoxic ated. LABORATORY STUDIES: WBC 4.21, hemoglobin and hematocrit 14.8 and 44.5, MCV 103.6, platelet count is 223. No bands. Sodium is 154, potassium 2.9, chloride 105, CO2 29, anion gap 20, BUN 6, creatinine 0.8, GFR greater than 60. Glucose is 98, calcium 8.7. Ethyl alcohol 572. ASSESSMENT AND PLAN: A 56-year-old gentleman with a history of alcohol dependence and persistent ing uinal scrotal pain and rash. 1. Mostly left inguinal scrotal rash with thickened, purulent appearing drainage. Differential diag nosis including genital herpes, cellulitis secondary and/or candidiasis. The patient has completed s everal courses of antivirals as well as antibiotics. His cultures for HSV PCR has been negative and also negative to gonorrhea, chlamydia testing. Given the persistence of symptoms, patient had been s cheduled to follow up with [facility] on Friday. However, given worsening inguinal pain and faile d outpatient therapy, Infectious Disease has been consulted and appreciate any assistance. There is also a question if patient has been able to be compliant given his history of alcohol dependence. Th e patient will be placed back on acyclovir for now. Topical Nystatin will be ordered and Rocephin pe nding Infectious Disease recommendations. 2. Hypokalemia. Replacement has been ordered. 3. Hypernatremia, likely due to hypovolemia in the setting of chronic alcohol dependence. Patient w ill be given IV fluid hydration with D5 half-normal saline and potassium supplementation. 4. Alcoholism. Patient is currently drinking 1 pint of vodka daily and he reports that he increased secondary to his pain. He has no interest in complete cessation. He is at high risk for withdrawal s, complications of seizures and DTs. At this point, patient's level of alcohol is greater than 500. Given risks, benefits for pretty significant withdrawal syndrome, we will plan to give patient 50 m L of vodka 4 times daily for now with recommendations to focus on cutting back and eventually quittin g. Patient will have Ativan available p.r.n. 5. Anion gap acidosis is likely related to alcohol ketosis. We will check a urinalysis. 6. Acute pain. Patient's vitals, including oxygenation, blood pressure are all stable despite patie nt's high level of alcohol. We will plan to utilize various medications and try to minimize narcotic s if possible. No IV medications. Check a urine tox as well. 7. Chronic obstructive pulmonary disease without exacerbation. DuoNeb will be ordered. 8. Macrocytosis in the setting of chronic alcohol dependence. Patient will be placed on thiamine. 9. Fluid, electrolyte, nutrition. IV fluids as noted above. Regular diet as tolerated. Electrolyt e replacement as above. 10. Prophylaxis. SCDs, anticoagulation with Lovenox. COR STATUS: Full. DISPOSITION: The patient has been admitted to observation at this time on the medical floor pending Infectious Disease recommendations. The patient also with a history of noncompliance and poor follow up. 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 /[id number]/MODL
[2017-05-25] MEDS ORDERED: ACYCLOVIR IV SCH (06:00)
[2017-05-25] MEDS ORDERED: D5W IV SCH (06:00)
[2017-05-25] MEDS ORDERED: POTASSIUM CL 10 MEQ TAB PO ONE (07:42)
[2017-05-25] MEDS ORDERED: LORazepam 1 MG TAB PO PRN (07:46)
[2017-05-25] MEDS: VODKA 50 ML BOTTLE PO SCH ×4 (08:14→21:49)
[2017-05-25] MEDS: ENOXAPARIN 40 MG/0.4 ML SYR SC SCH (08:14)
[2017-05-25] MEDS: THIAMINE HCL 100 MG TAB PO SCH (08:15)
[2017-05-25] MEDS: NYSTATIN 15 GM CR TUBE TP SCH ×2 (09:00→21:52)
[2017-05-25] MEDS: oxyCODONE IR 5 MG TAB PO PRN ×3 (09:37→20:09)
[2017-05-25 10:03] LABS: PLATELET COUNT 201 10^3/uL (150-400)
[2017-05-25 10:12] LABS: INR 1.02 (0.83-1.16); PROTIME(PATIENT) 13.6 SEC (12.0-15.0)
[2017-05-25 10:18] LABS: CREATINE KINASE 505 IU/L (0-224)
--- NOTE | 2017-05-25 11:05 | GCON ---
[f rep st] CONSULTATION INFECTIOUS DISEASE CONSULTATION DATE OF CONSULTATION: 05/25/2017 REFERRING PHYSICIAN: Charley Heaton MD CHIEF COMPLAINT: Scrotal pain. HISTORY OF PRESENT ILLNESS: This is a 56-year-old -[place] male with past medical history si gnificant for alcohol dependence, tobacco use, who has been into the ER three times already due to sc rotal and penile pain. He states this started about 3 to 4 weeks ago with increasing pain in that re gion. He is not clear how it all started but the area has been weeping and he has been having a lot of pain. He had an initial evaluation on 04/28 for HSV and it was negative. It appears that he was given acyclovir and doxycycline to go home with. He said it did help a little bit but it never clear ed it up completely. He then came back to the ER on 05/04, and at that time, he had come for a synco pal episode. He was not given any treatment for the scrotal also at that time. He then comes back o n 05/16, for ongoing pain involving the scrotum and penis. GC and chlamydia were checked at that ceci e, which were negative. He was given Valtrex 1 g and he was given intramuscular shot of ceftriaxone and 1 g oral azithromycin. He was given a 7 days' course of Valtrex 1 g 3 times a day. It is not cl ear whether or not this treatment helped him much. He maybe received some relief but the lesions hav e not cleared up. He has not been able to keep the area clean and he is having ongoing weeping invol ving his genital region. He comes in yesterday after the police department did a welfare check on hi m and found him to be unable to stand and intoxicated. His alcohol level was in the 500s. He apparalysha raily had an appointment at [facility] on 05/23, but he missed his appointment. The patient is cur rently on IV acyclovir and ceftriaxone along with nystatin topical. REVIEW OF SYSTEMS: GENERAL: Denied any fevers or chills. HEAD: No headaches. EYES: No change in vision. ENT: No sore throat, difficulty swallowing, ear pain, ear drainage. CARDIOVASCULAR: No ches t pain or rapid heart beat. RESPIRATORY: No shortness of breath, cough or sputum production. ABDOM EN: No nausea, vomiting, abdominal pain, diarrhea. GENITOURINARY: Denies any dysuria at present. He did have some hematuria he states last week. He denies any penile discharge. MUSCULOSKELETAL: De nies any joint pains or muscle aches. SKIN: Denies any other rashes or open wounds. The rest of a 10-point review of systems is essentially negative except for above. PAST MEDICAL HISTORY: Significant for tobacco use and alcohol dependence. History of genital herpes , COPD, history of shingles. PAST SURGICAL HISTORY: Significant for appendectomy, tonsillectomy, and adenoidectomy. ALLERGIES: No known drug allergies. FAMILY HISTORY: Was reviewed and found to be unremarkable. SOCIAL HISTORY: He smokes a half a pack per day. He drinks a pint of vodka daily. 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 From what I can see, he moved here to [place] 05/2016. He is a from [place] [employer] [place]. He denies any illicit drug usage. He is sexually active. Last sexual encounter was a few weeks ago. Uses condoms intermittently but not consistently. PHYSICAL EXAMINATION: VITAL SIGNS: Temperature current 36.7, pulse is 83, respiratory rate is 16, b lood pressure 168/91, saturating 97% on 2% O2 via nasal cannula. GENERAL: Patient is resting in bed . No acute respiratory distress. Awake, alert, and oriented x3. HEENT. Head is normocephalic, atr aumatic. Eyes without conjunctival injection bilaterally. No conjunctival petechiae noted. Oropharyn x is clear. There is no posterior erythema or thrush. CARDIOVASCULAR: S1, S2. Regular rate and rh ythm. No murmurs appreciated. RESPIRATORY: Clear to auscultation bilaterally. No rhonchi or rales appreciated. ABDOMEN: Positive bowel sounds in all quadrants. Soft, nontender, nondistended. No ob vious organomegaly appreciated. EXTREMITIES: No lower extremity edema. MUSCULOSKELETAL: No joint pain or joint effusions on palpation. SKIN: Pertinent findings, large scrotal ulcer involving the a nterior and left side of the scrotum with purulent material overlying it. He also has skin breakdown and rawness on the undersurface of the penis and penile shaft. The area is tender to the touch. Th e skin is mildly erythematous but not indurated. There was increased pain with elevation of the scrot um. The distal aspect of the shaft of the penis is slightly edematous. LABORATORY DATA: Yesterday, white blood cell count of 4.6, hemoglobin 13.3, platelets are 201, neutr ophil count is 60%, sodium 154, potassium 2.9, chloride is 105, bicarbonate is 29, BUN is 6, creatini ne 0.8. No LFTs have been checked. Urinalysis 1+ protein, negative blood, 2.0 urobilinogen, negative nitrates, negative leukocyte esterases. Urine WBCs 1 to 3. Drug screen positive for alcohol at 572. Previous review of records shows an HSV 1 and 2 DNA from the penis on 04/28, was negative. Chlamyd ia and gonorrhea RNAs checked on 05/16 are negative. No cultures have been submitted so far. ASSESSMENT: 1. Large scrotal ulcer with skin breakdown on the undersurface of the penis. 2. Alcohol dependence. PLAN: Etiology of the above his uncertain. Differential diagnosis includes but is not limited to fun gal infection with bacterial super infection, HSV, syphilis, other STIs. Will start with additional workup. The patient gave me verbal consent for HIV testing. The patient is currently on ceftriaxone which we will continue and will doxycycline for now. The patient is also currently on IV. Will franklin e to p.o. Valtrex until HSV studies are back. Will add LFTs and hepatitis studies to the blood work along with syphilis, GC, chlamydia and HIV. I have swabbed the wounds for culture and sensitivity al jackie with HSV and HCV cDNA PCR testing. Recommend wound care consult for additional wound care. I al so ordered a testicular ultrasound to rule out an abscess. For now, keep wound clean and dry as best as possible and avoid contact between the underside of the penis on to the scrotum as much as possibl e as this is causing additional breakdown. The above plan of care was discussed in detail with the p atient as well as the nurse. I thank you very much for allowing this opportunity to care for your patient in consultation. /[id number]/MODL
[2017-05-25] MEDS: DOXYCYCLINE HYCLATE 100 MG CAP/TAB PO SCH ×2 (11:45→20:02)
[2017-05-25] MEDS ORDERED: ACETAMINOPHEN 325 MG SUPP PR PRN (13:42)
[2017-05-25] MEDS ORDERED: PROMETHAZINE HCL 25 MG TAB PO PRN (13:42)
[2017-05-25] MEDS ORDERED: LORazepam 2 MG/ML INJ IVP PRN (13:42)
[2017-05-25] MEDS ORDERED: HALOPERIDOL LACT 5 MG/ML INJ IVP PRN (13:42)
[2017-05-25] MEDS ORDERED: PROMETHAZINE HCL 25 MG SUPPR PR PRN (13:42)
[2017-05-25] MEDS ORDERED: diphenhydrAMINE 25 MG CAP PO PRN (13:42)
[2017-05-25] MEDS ORDERED: ACYCLOVIR 200 MG CAP PO SCH (14:00)
[2017-05-25] MEDS ORDERED: ALBUTEROL 3 ML DEYVIAL IH PRN (14:30)
--- NOTE | 2017-05-25 14:30 | HOSPPROG ---
Hospitalist Progress Note Assessment/Plan: 56 yo male admitted with penile lesion and ETOH excess at 572 mg%. Patient equivocal about stopping ETOH and thus given vodka. ID has seen and following. wound care will see wound on penis. CIWA ordered. h/o tobacco, asthma, ETOH. Patient currently calm and requesting narcotic and sedative meds, reports pain on penis only, no respiratory distress, no chest pain, cough, alert and oriented x3. Plan: -CIWA, vodka -limit narcotic pain meds -ID following -restarted home meds for asthma Objective: Vital Signs Temp Pulse Resp BP Pulse Ox 36.5 C 108 H 17 153/92 H 91 L 05/25/17 11:51 05/25/17 11:51 05/25/17 11:51 05/25/17 11:51 05/25/17 11:51 Laboratory Results 05/25/17 09:48 05/25/17 09:48 05/24/17 05/25/17 05/26/17 05:59 05:59 05:59 Intake Total 1875 Output Total 125 Balance 1750 PT 13.6 SEC (12.0-15.0) 05/25/17 09:48 INR 1.02 (0.83-1.16) 05/25/17 09:48 ICD10 Worksheet Patient Problems: Problems Problem Status Onset Alcoholic intoxication Acute Scrotal infection Acute
[2017-05-25] MEDS ORDERED: MAGNESIUM SULF 1 GM/DEXTROSE 100 ML IV ONE (14:41)
[2017-05-25] MEDS: MULTIVITAMINS 1 EACH TAB PO SCH ×2 (15:23→15:45)
[2017-05-25] MEDS: FAMOTIDINE 20 MG TAB PO SCH ×3 (15:23→20:02)
[2017-05-25] MEDS: FOLIC ACID 1 MG TAB PO SCH ×2 (15:23→15:45)
[2017-05-25] MEDS: valACYclovir 500 MG TAB PO SCH ×5 (15:44→21:49)
[2017-05-25] MEDS ORDERED: NON-FORMULARY NEW DRUG (Valacyclovir Hcl [Valtrex] 1,000 MG) PO SCH (16:00)
--- NOTE | 2017-05-25 16:27 | ASMTCMCOM ---
CM Note CM Note Notes: 56 year old male brought in by PD after welfare check. Admitted for Scrotal infection, penile lesion, pain, ETOH. He has a hx of Hypokalemia, COPD, Shingles, Genital herpes. Patient reports that he drink ETOH due to the pain. Therapies to eval for discharge needs, CM to follow. Date Signed: 05/25/2017 04:26 PM Electronically Signed By:Enedina Sibley LCSW
[2017-05-25] MEDS: hydrALAZINE 20 MG/ML VIAL IVP PRN ×2 (17:05→22:56)
[2017-05-25] MEDS: IPRATROPIUM/ALBUTEROL 3 ML DEYVIAL IH SCH ×2 (18:30→22:15)
[2017-05-25] MEDS: BUDESONIDE/FORMOTEROL 160/4.5 60 PUFFS/MDI IH SCH ×2 (18:36→22:15)
--- NOTE | 2017-05-25 18:44 | HOSPPROG ---
Hospitalist Progress Note Assessment/Plan: Cross cover note Notified by RN of blood pressure 174/98 after giving hydralazine Assessment Hypertension in the setting of withdrawal -will start oral metoprolol 50 mg p.o. twice daily -call if having symptoms of chest pain, shortness of breath, headache, vision changes or blood pressure is greater than 220 systolic and 110 diastolic Objective: Vital Signs Temp Pulse Resp BP Pulse Ox 36.9 C 86 17 174/98 H 96 05/25/17 16:00 05/25/17 16:00 05/25/17 16:00 05/25/17 17:05 05/25/17 16:00 Laboratory Results 05/25/17 09:48 05/25/17 17:33 05/24/17 05/25/17 05/26/17 05:59 05:59 05:59 Intake Total 1875 1150 Output Total 125 350 Balance 1750 800 PT 13.6 SEC (12.0-15.0) 05/25/17 09:48 INR 1.02 (0.83-1.16) 05/25/17 09:48 ICD10 Worksheet Patient Problems: Problems Problem Status Onset Alcoholic intoxication Acute Scrotal infection Acute
[2017-05-25] MEDS: LORazepam 1 MG TAB PO PRN (18:57)
[2017-05-25] MEDS ORDERED: LORazepam 2 MG/ML INJ IVP ONE (19:45)
[2017-05-25] MEDS: METOPROLOL TARTRATE 50 MG TAB PO SCH (20:03)
[2017-05-26] MEDS: LORazepam 2 MG/ML INJ IVP PRN ×2 (00:03→05:41)
[2017-05-26] MEDS: oxyCODONE IR 5 MG TAB PO PRN ×6 (02:13→23:55)
[2017-05-26] MEDS: POTASSIUM Cl (KCl) 40 MEQ in D5W 1/2 NS 1,000 ML IV SCH (03:32)
[2017-05-26 05:26] LABS: PLATELET COUNT 189 10^3/uL (150-400)
[2017-05-26] MEDS: hydrALAZINE 20 MG/ML VIAL IVP PRN (05:41)
[2017-05-26] MEDS: IPRATROPIUM/ALBUTEROL 3 ML DEYVIAL IH SCH ×4 (06:07→20:38)
[2017-05-26] MEDS: METOPROLOL TARTRATE 50 MG TAB PO SCH ×2 (08:51→20:16)
[2017-05-26] MEDS: MULTIVITAMINS 1 EACH TAB PO SCH ×2 (08:51→08:52)
[2017-05-26] MEDS: THIAMINE HCL 100 MG TAB PO SCH (08:51)
[2017-05-26] MEDS: DOXYCYCLINE HYCLATE 100 MG CAP/TAB PO SCH ×2 (08:51→20:15)
[2017-05-26] MEDS: valACYclovir 500 MG TAB PO SCH ×2 (08:53→20:15)
[2017-05-26] MEDS: FOLIC ACID 1 MG TAB PO SCH (08:53)
[2017-05-26] MEDS: FAMOTIDINE 20 MG TAB PO SCH ×2 (08:53→20:16)
[2017-05-26] MEDS: ENOXAPARIN 40 MG/0.4 ML SYR SC SCH (08:54)
[2017-05-26] MEDS: VODKA 50 ML BOTTLE PO SCH ×4 (08:54→21:26)
[2017-05-26] MEDS: BUDESONIDE/FORMOTEROL 160/4.5 60 PUFFS/MDI IH SCH ×2 (09:12→20:37)
[2017-05-26] MEDS: NYSTATIN 15 GM CR TUBE TP SCH ×2 (09:14→20:14)
[2017-05-26] MEDS ORDERED: MAGNESIUM SULF 2 GM/WATER 50 ML IV ONE (09:52)
[2017-05-26] MEDS: LISINOPRIL 10 MG TAB PO SCH (10:13)
--- NOTE | 2017-05-26 13:58 | PCMIDPN ---
Assessment/Plan: Multifocal ulcers covering scrotum and penis with associated crusting on a base of erythema - suspect bacterial infection, wound cx showing MSSA. Bilateral Shotty inguinal LAD likely reactive. --dc ceftriaxone --continue doxycycline for ongoing SA coverage --await HSV, continue valtrex for now. --patient reluctant to shower --multiple studies pending: HSV, HIV, GC/Chlamydia, syphilis meds valtrex 1gm PO BID ceftriaxone 1gm IV daily #2 Doxycycline 100mg PO BID Subjective: patient reports scrotal pain improved today Objective: Vital Signs Temp Pulse Resp BP Pulse Ox 36.3 C 90 17 159/96 H 97 05/26/17 11:28 05/26/17 11:28 05/26/17 11:28 05/26/17 11:28 05/26/17 11:28 Microbiology 05/25/17 10:15 Gram Stain - Final Scrotum - Swab Laboratory Results 05/26/17 05:02 05/26/17 05:02 05/25/17 05/26/17 05/27/17 05:59 05:59 05:59 Intake Total 1875 2350 Output Total 125 1350 Balance 1750 1000 Gen: thin male NAD, very flat affect O/p MMM poor dentition CV: RRR Chest :Clear B Abd: thin, soft NT : circumcised phallus, superficial small ulcers on penis and diffusely over scrotum with crusting, base somewhat erythematous, shotty inguinal LAD, no lymphangitis ICD10 Worksheet Patient Problems: Problems Problem Status Onset Alcoholic intoxication Acute Scrotal infection Acute
--- NOTE | 2017-05-26 15:22 | SOAPPROG ---
SOAP Progress Note Assessment/Plan: 1. scrotal/inguinal lesion/ulceration -discussed with chiller operator and ID, appreciate assistance -on doxy/rocephin/antivirals -Cx + MSSA but sens pending, OK to stop rocephin per ID -several serologies still pending -adjusted pain meds 2. Alcoholism -CIWA, continue vodka as not interested in detox at this time 3. Asthma/COPD -home meds, no acute issues 4. Electrolytes -replace per protocol 5. HTN -meds started yesterday, still not well controlled -added geremias I DISPO- > 2 mdnts anticipated for abx and wound care DVT prophy- lovenox PCP- FULL CODE 05/26/17 21:07 Subjective: Says pain worse. Denies n/v/d. Objective: Vital Signs Temp Pulse Resp BP Pulse Ox 97.3 F 90 17 159/96 H 97 05/26/17 11:28 05/26/17 11:28 05/26/17 11:28 05/26/17 11:28 05/26/17 11:28 Microbiology 05/25/17 10:15 Gram Stain - Final Scrotum - Swab Laboratory Results 05/26/17 05:02 05/26/17 05:02 05/25/17 05/26/17 05/27/17 11:59 11:59 11:59 Intake Total 1875 2350 Output Total 125 1350 Balance 1750 1000 PT 13.6 SEC (12.0-15.0) 05/25/17 09:48 INR 1.02 (0.83-1.16) 05/25/17 09:48 - Time Spent With Patient Time Spent With Patient: 35 - Pending Discharge Pending Discharge Within 24 Hours: No Physical Exam - Physical Exam General Appearance: alert, no apparent distress, thin Respiratory: lungs clear, normal breath sounds, No respiratory distress Cardiac/Chest: regular rate, rhythm, No edema, No systolic murmur Abdomen: normal bowel sounds, non-tender, soft Neuro/Psych: alert, normal mood/affect, No cognition abnormalities, No speech abnormalities ICD10 Worksheet Patient Problems: Problems Problem Status Onset Alcoholic intoxication Acute Scrotal infection Acute
--- NOTE | 2017-05-26 15:33 | ASMTCMCOM ---
CM Note CM Note Notes: Patient needing ABX and wound care. May need HC RN on discharge. Date Signed: 05/26/2017 03:33 PM Electronically Signed By:Enedina Sibley LCSW
--- NOTE | 2017-05-26 16:11 | WOCRNPDOC ---
WOCRN Advanced Assessment Note - Skin Integrity Problem, Advanced Assess Scrotum Dressing Type: Open to Air Exudate Amount: None Wound Bed Constitution: Scab, Dried Exudate Skin Integrity Problem Comment: Multiple small denuded areas on scrotum that appears midly swollen. There are also a couple of small wounds on left medial thigh. Some along base of penis. Most of the wounds have been covered with dried exudate/drainage. Minimal serosangenous drainage present from some open area remaining. Suggested area be soaked with saline moistened gauze and then patient get in the shower to clean off area with soap and water. Wound care will sign off.
[2017-05-26] MEDS: IBUPROFEN 600 MG TAB PO PRN ×2 (17:32→23:55)
[2017-05-26] MEDS: NICOTINE 21 MG/24 HR PATCH TD SCH (17:33)
[2017-05-26] MEDS: ACETAMINOPHEN 325 MG TAB PO PRN (20:15)
[2017-05-26] MEDS: LORazepam 1 MG TAB PO PRN (20:17)
[2017-05-27] MEDS: oxyCODONE IR 5 MG TAB PO PRN ×3 (04:13→15:35)
[2017-05-27] MEDS: ACETAMINOPHEN 325 MG TAB PO PRN (04:14)
[2017-05-27 04:18] LABS: HEPATITIS B SURFACE ANTIGEN NEGATIVE (NEGATIVE)
[2017-05-27 04:35] LABS: HEPATITIS B CORE AB TOTAL NEGATIVE (NEGATIVE); HIV TYPE 1 AND 2 NEGATIVE (NEGATIVE)
[2017-05-27] MEDS: IPRATROPIUM/ALBUTEROL 3 ML DEYVIAL IH SCH ×3 (05:48→16:36)
[2017-05-27] MEDS: VODKA 50 ML BOTTLE PO SCH ×2 (08:57→12:27)
[2017-05-27] MEDS: valACYclovir 500 MG TAB PO SCH ×2 (08:58→18:13)
[2017-05-27] MEDS: LISINOPRIL 10 MG TAB PO SCH (08:58)
[2017-05-27] MEDS: NICOTINE 21 MG/24 HR PATCH TD SCH (08:58)
[2017-05-27] MEDS: DOXYCYCLINE HYCLATE 100 MG CAP/TAB PO SCH ×2 (08:58→18:13)
[2017-05-27] MEDS: FOLIC ACID 1 MG TAB PO SCH (08:59)
[2017-05-27] MEDS: MULTIVITAMINS 1 EACH TAB PO SCH (08:59)
[2017-05-27] MEDS: METOPROLOL TARTRATE 50 MG TAB PO SCH ×2 (08:59→18:12)
[2017-05-27] MEDS: THIAMINE HCL 100 MG TAB PO SCH (08:59)
--- NOTE | 2017-05-27 08:59 | PCMIDPN ---
Assessment/Plan: Assessment/Plan: 1. Multiple ulcers involving scrotum/penis and thigh: - CX with MSSa - currently on doxy. Will continue with this as this may be easier to him to stay compliant wiht taking in the OP - Appreciate wound care. Called and discussed case. He needs wound care instruction and possible cream or dressing to keep area clean and dry so it can heal. -multiple studies pending: syphillis, hCV, sti work up -on valtrex pending HSV/VZV pcr results. if negative, then d/c -Hopefully home in 1-2 days. -care coordinated with wound care 2. Alcohol dependence - follwed by hospitalist team. MEds doxy 100mg q12- valtrex 1g q12- Subjective: Afebrile. feeling better. still with pain but improving. denies sob, abd pain or diarrhea. Objective: Vital Signs Temp Pulse Resp BP Pulse Ox 36.9 C 95 12 156/98 H 91 L 05/27/17 08:00 05/27/17 08:00 05/27/17 08:00 05/27/17 08:00 05/27/17 08:00 Microbiology 05/25/17 10:15 Gram Stain - Final Scrotum - Swab Laboratory Results 05/26/17 05:02 05/27/17 04:49 05/26/17 05/27/17 05/28/17 05:59 05:59 05:59 Intake Total 2350 900 Output Total 1350 500 Balance 1000 400 - Physical Exam General Appearance: alert, no apparent distress Respiratory: lungs clear Cardiac/Chest: regular rate, rhythm Extremities: No swelling Abdomen: normal bowel sounds, non-tender, soft, No distended Skin: other (superficial ulcer of scrotum, smaller one on shaft of penis and raw , and smaller one on left thigh. less pus than two days ago. ) ICD10 Worksheet Patient Problems: Problems Problem Status Onset Alcoholic intoxication Acute Scrotal infection Acute
[2017-05-27] MEDS: ENOXAPARIN 40 MG/0.4 ML SYR SC SCH (09:00)
[2017-05-27] MEDS: FAMOTIDINE 20 MG TAB PO SCH (09:00)
[2017-05-27] MEDS: IBUPROFEN 600 MG TAB PO PRN ×2 (09:10→15:34)
[2017-05-27 09:38] LABS: HEPATITIS C ANTIBODY TOTAL NEGATIVE (NEGATIVE)
[2017-05-27] MEDS: NYSTATIN 15 GM CR TUBE TP SCH (10:30)
[2017-05-27] MEDS: BUDESONIDE/FORMOTEROL 160/4.5 60 PUFFS/MDI IH SCH (10:34)
[2017-05-27] MEDS: LORazepam 1 MG TAB PO PRN (10:55)
[2017-05-27 11:41] VITALS: BP 168/74; PULSE 101; RESP 15; TEMP 98.2; O2SAT 94
[2017-05-27] MEDS ORDERED: FLUCONAZOLE 100 MG TAB PO SCH (13:45)
--- NOTE | 2017-05-27 23:36 | GDS ---
[f rep st] DISCHARGE SUMMARY SERVICE: [facility], Hospitalist. CONSULTS: Infectious Disease. PROCEDURES: Testicular ultrasound shows scrotal cellulitis and epididymitis. No abscess. Incidenta l right spermatocele noted. HISTORY AND PHYSICAL: Please see previously dictated note by Dr. Heaton. ADMISSION DIAGNOSES: Scrotal infection with significant pain, hypokalemia, hypernatremia, alcoholism , anion gap acidosis, chronic obstructive pulmonary disease without exacerbation, macrocytosis. DISCHARGE DIAGNOSES: Scrotal infection with significant pain; hypokalemia; hypernatremia; alcoholism , not interested in detox at this time; anion gap acidosis; chronic obstructive pulmonary disease wit hout exacerbation; macrocytosis; hypertension. HOSPITAL COURSE: 1. Scrotal infection. He was admitted to the hospital for IV antibiotics and further evaluation. H e had a testicular ultrasound that did not show any underlying abscess. He was started empirically o n IV Rocephin along with oral doxycycline and Valtrex. Infectious Disease was asked to assist in his care and antibiotic choices. Multiple serologies and cultures were done along with a Wound Care con sult. Gram stain of the lesions has grown out methicillin-sensitive staph that is polysensitive to a ll antibiotics tested. Urine toxicology screen was positive for opiates and also marijuana, with an elevated alcohol level at admission of 572. Hepatitis B surface antigen negative, hepatitis B core a ntibody negative, hepatitis C antibody is negative, HIV antibodies are negative, and chlamydia RNA is also negative. At time of discharge, syphilis IgG. HCV RNA, HSV RNA's and Ureaplasma and varicella zoster are all pending. Lesions showed improvement, and pain was well managed with oral medications . He has been instructed to keep up with wound care as directed and to follow up within the next few days with a new primary care provider, which has been arranged for him by Case Management at the [facility]. I have also suggested that he follow up with Dr. Coleman at the ID office in about a week, and he may need Wound Care evaluation prior to that, depending on evaluation with his new primary ca re provider. If at any time he has increasing pain, swelling, redness, fever, or other areas of rash , he has been instructed to return immediately for re-evaluation. Was felt to have a fungal componen t, and he was getting nystatin ointment. However, rash related to the fungus seemed to be spreading slightly down his thighs, and oral antifungal was also started. 2. Alcoholism. He drinks every day and says he has been drinking more recently because of pain. He was not interested in information about detox or detoxing at this time. Vodka was ordered scheduled , and he was also placed on CIWA protocol p.r.n. He was started on vitamins and thiamine. Noted mac rocytosis and slight anemia after fluids had been received with a hemoglobin of 14.2, but at admissio n it was 14.8. Platelet count noted to be normal, and INR is also normal at 1.02. Liver enzymes wer e evaluated at admission and showed an AST of 143, an ALT of 80. He was strongly counseled to consid er alcohol cessation, but is not interested at this time. Recommend that this be [facility] along with repeat liver function testing. Of note, hepatitis C and hepatitis B serologies are negative as above. Should consider hepatitis A and B vaccines with his primary care sharon robb. 3. Hypertension. Blood pressures have remained elevated throughout his stay here with a maximum at the 180s/100s. It certainly was felt to be partially related to pain, but throughout his stay, as hi s pain was better controlled, his blood pressures remained elevated. He was started on metoprolol an d lisinopril orally, and his blood pressures did decrease into the 140s/90s and were stable. When qu estioned, he does say he has been on blood pressure medicines previously, but not consistently. Pres criptions were given for these 2 medications, and he has a scheduled followup with a new primary care provider to determine if they need to be adjusted. 4. Electrolyte abnormalities. These were replaced per protocol, and at discharge sodium, potassium and magnesium levels were all normal. 5. Tobacco abuse. He was treated with a nicotine patch while inpatient, but he did not desire to co ntinue that and was eager to smoke. DISCHARGE MEDICATIONS: Tylenol as needed; doxycycline 100 mg twice a day, quantity sufficient for we ek given; fluconazole 100 mg once a day for 5 days; Zestril 10 mg once a day; metoprolol 50 mg twice a day; oxycodone 5-10 mg every 4 hours as needed, #30; Valtrex 1000 mg every 12 hours, #14 (ID instru cted that this can be stopped if HSV testing returns negative); Symbicort b.i.d., albuterol as needed ; Zyrtec as needed. DISCHARGE INSTRUCTIONS: He has been instructed to keep the wounds clean, dry, and covered and to fol low the wound care nurse's instructions regarding care. I have asked him to at least shower or wash the area with mild gentle soap daily. I have strongly suggested that he consider alcohol cessation, but he is not interested at this time. However, if he changes his mind, he can contact his new [facility] care provider or [facility] for assistance. DISCHARGE REFERRALS: Dr. Vegas at [facility]. Appointment has been made for him by [facility] for later this week. Dr. Coleman at infectious Disease. He should call to make an appointment i n about a week. May need referral to Wound Care Clinic also, but will leave this up to Dr. Vegas. /[id number]/MODL
[2017-05-29 12:44] LABS: HCV QT RNA PCR < 1 IU/mL (<15)
== END 2017-05-27 18:35 | disposition home or self-care (01) ==
LOC: EDUNIT# → F3N 05-25 02:00
PROVIDERS: ADMIT Family Medicine; ATTEND Family Medicine
PROC: HZ2ZZZZ Detoxification Services for Substance Abuse Treatment (ICD-10-PCS; principal; 2017-05-25)
DX: N49.2 Inflammatory disorders of scrotum (principal); N45.1 Epididymitis; B95.61 Methicillin susceptible Staphylococcus aureus infection as the cause of diseases classified elsewhere; E87.6 Hypokalemia; E87.0 Hyperosmolality and hypernatremia; E87.2 Acidosis; F10.220 Alcohol dependence with intoxication, uncomplicated; N43.40 Spermatocele of epididymis, unspecified; J44.9 Chronic obstructive pulmonary disease, unspecified; I10 Essential (primary) hypertension; F11.10 Opioid abuse, uncomplicated; D64.9 Anemia, unspecified; F17.210 Nicotine dependence, cigarettes, uncomplicated; Z86.19 Personal history of other infectious and parasitic diseases; Y90.8 Blood alcohol level of 240 mg/100 ml or more
CPT/HCPCS: 76870; 96374; 99285; G0378; 80307; 86704-90; 87529-90; G0472; G0480; J0133; J0360; J0696; J1650; J1885; J2060; J3475

== ENCOUNTER 2017-06-09 19:49 | Emergency (ER) | payer OTHER ==
[2017-06-09] MEDS ORDERED: FLUCONAZOLE 150 MG TAB PO ONE (19:55)
[2017-06-09 19:57] VITALS: BP 149/94; PULSE 98; RESP 18; TEMP 97.9; O2SAT 96
--- NOTE | 2017-06-09 20:00 | EDPHY ---
H & P Time Seen by Provider: 06/09/17 19:51 HPI/ROS: CHIEF COMPLAINT: Balls burning HISTORY OF PRESENT ILLNESS: Patient is a 56-year-old man who is brought by EMS initially complaining of shortness of breath but now complaining that his balls or burning. He states that he was seen here about a month ago and given multiple antibiotics as well as Percocet and is here now requesting more Percocet. He denies any discharge. He denies any trauma. REVIEW OF SYSTEMS: Constitutional: denies: chills, fever, recent illness, recent injury EENTM: denies: blurred vision, double vision, nose congestion Respiratory: denies: cough, shortness of breath Cardiac: denies: chest pain, irregular heart rate, lightheadedness, palpitations Gastrointestinal/Abdominal: denies: abdominal pain, diarrhea, nausea, vomiting, blood streaked stools Genitourinary: denies: dysuria, frequency, hematuria, pain Musculoskeletal: denies: joint pain, muscle pain Skin: denies: lesions, rash, jaundice, bruising Neurological: denies: headache, numbness, paresthesia, tingling, dizziness, weakness Hematologic/Lymphatic: denies: blood clots, easy bleeding, easy bruising Immunologic/allergic: denies: HIV/AIDS, transplant Thin, head atraumatic GENERAL: Well-appearing, well-nourished an EYES: Pupils equal round and reactive to light, extraocular movements intact, sclera anicteric, conjunctiva are normal. ENT: TMs normal, nares patent, oropharynx clear without exudates. Moist mucous membranes. NECK: Normal range of motion, supple without lymphadenopathy or JVD. LUNGS: Breath sounds clear to auscultation bilaterally and equal. No wheezes rales or rhonchi. HEART: Regular rate and rhythm without murmurs, rubs or gallops. ABDOMEN: Soft, nontender, normoactive bowel sounds. No guarding, no rebound. No masses appreciated. : Patient has erythematous and excoriated scrotum and inferior penile shaft. Consistent with yeast infection. No discharge. No testicular tenderness or swelling. BACK: No CVA tenderness, no spinal tenderness, step-offs or deformities EXTREMITIES: Normal range of motion, no pitting or edema. No clubbing or cyanosis. NEUROLOGICAL: Cranial nerves II through XII grossly intact. Normal speech, normal gait. 5/5 strength, normal movement in all extremities, normal sensation PSYCH: Normal mood, normal affect. SKIN: Warm, dry, normal turgor, no visible rashes or lesions. Source: Patient Exam Limitations: No limitations - Medical/Surgical History Hx Asthma: No Hx Chronic Respiratory Disease: Yes Hx Diabetes: No Hx Cardiac Disease: No Hx Renal Disease: No Hx Cirrhosis: No Hx Alcoholism: Yes Hx HIV/AIDS: No Hx Splenectomy or Spleen Trauma: No Other PMH: COPD. shingles - Family History Significant Family History: No pertinent family hx - Social History Smoking Status: Current every day smoker Alcohol Use: Heavy Drug Use: Marijuana Allergies/Adverse Reactions: seasonal Allergy (Mild, Uncoded 05/25/17 08:08) Home Medications: Medication Instructions Recorded Doxycycline Hyclate 100 mg PO BID #14 tab 04/28/17 Albuterol [Proventil Inhaler HFA 1 - 2 puffs IH Q4H 05/25/17 (*)] Budesonide/Formoterol 160/4.5 1 puffs IH BID 05/25/17 [Symbicort 160-4.5 Mcg Inh (*)] Cetirizine [ZyrTEC 10 mg (*)] 10 mg PO DAILY 05/25/17 Acetaminophen [Tylenol 325mg (*)] 650 mg PO Q4HRS PRN tab 05/27/17 Doxycycline Hyclate [Vibramycin 100 mg PO BID #14 capsule 05/27/17 100 MG (*)] Fluconazole [Diflucan (*)] 100 mg PO DAILY #4 tab 05/27/17 Lisinopril [Zestril 10 mg (*)] 10 mg PO DAILY #7 tab 05/27/17 Metoprolol Tartrate [Lopressor 50 50 mg PO BID #14 tab 05/27/17 mg (*)] oxyCODONE IR [Oxycodone Ir (*)] 5 - 10 mg PO Q4HRS PRN #30 tab 05/27/17 valACYclovir [Valtrex (*)] 1,000 mg PO Q12HRS #14 tab 05/27/17 Fluconazole [Diflucan (*)] 150 mg PO ONCE #1 tab 06/09/17 Medical Decision Making ED Course/Re-evaluation: Clinically the patient has yeast infection pills him on Diflucan. He understands this and agrees however he repeatedly asked for narcotics. I will not prescribe him narcotics. Differential Diagnosis: Partial list of the Differential diagnosis considered include but were not limited to; yeast infection, herpes, syphilis, intoxication and although unlikely based on the history and physical exam, I also considered pneumonia, acute coronary disease, testicular torsion. I discussed these differential diagnoses and the plan with the patient as well as the usual and expected course. The patient understands that the diagnosis is provisional and that in medicine we are not always correct and that further workup is often warranted. Usual and customary warnings were given. All of the patient's questions were answered. The patient was instructed to return to the emergency department should the symptoms at all worsen or return, otherwise to followup with the physician as we discussed. Departure - Departure Disposition: Home, Routine, Self-Care Clinical Impression: Yeast infection of the skin, Drug-seeking behavior Condition: Fair Instructions: Yeast Infection (ED), Narcotic Abuse (ED) Referrals: Patient,NotPresent [Unknown] - As per Instructions Prescriptions: Fluconazole [Diflucan (*)] 150 mg PO ONCE #1 tab
[2017-06-09] MEDS ORDERED: TERBINAFINE 30 GM CRTUBE TP SCH (21:00)
== END 2017-06-09 21:00 | disposition home or self-care (01) ==
LOC: EDUNIT#
DX: B37.2 Candidiasis of skin and nail (principal); F17.200 Nicotine dependence, unspecified, uncomplicated; J44.9 Chronic obstructive pulmonary disease, unspecified; Z72.89 Other problems related to lifestyle

== ENCOUNTER 2017-06-15 10:17 | Emergency (ER) | payer OTHER ==
[2017-06-15] MEDS ORDERED: CHLORDIAZEPOXIDE 25MG PREPK#6 BTL TAKEHOME ONE (11:02)
--- NOTE | 2017-06-15 11:07 | EDPHY ---
H & P Time Seen by Provider: 06/15/17 10:43 HPI/ROS: CHIEF COMPLAINT: "I've got lots wrong with me" HISTORY OF PRESENT ILLNESS: 56-year-old homeless male arrives via ambulance with multiple complaints. States that he has been drinking heavy amounts of alcohol. Denies suicidal or homicidal ideation. Denies seizure. Denies hallucination. [facility]. States that his "balls are still burning". He has seen emergency department recently diagnosed with likely yeast etiology, treated with Diflucan. States that his symptoms continue. Have not worsened however. No urinary abnormality , no dysuria, no hematuria , no increased frequency. No fever or chills. No trauma. No perineal pain. States that he has not had a bowel movement in 2 days. No abdominal pain. No fever or chills. Ate noodles before coming to the ER which he tolerated well with no nausea or vomiting. No back pain. REVIEW OF SYSTEMS: A ten point review of systems was performed and is negative with the exception of the items mentioned in the HPI PAST MEDICAL & SURGICAL HISTORY: Alcoholism SOCIAL HISTORY: Homeless. Last drink of alcohol 1 hr ago PHYSICAL EXAM (Prior to examination, patient consented to physical exam, hands were washed and my usual and customary physical exam procedures followed) 1) GENERAL: Well-developed, well-nourished, alert and oriented. Sleeping, easily woken. Appears to be in no acute distress. Answering questions appropriately. 2) HEAD: Normocephalic, atraumatic 3) HEENT: Pupils equal, round, reactive to light bilaterally. Sclera anicteric. 4) NECK: Full range of motion, no meningeal signs. 5) LUNGS: Clear auscultation bilaterally, no wheezes, no rhonchi, no retractions. 6) HEART: Regular rate and rhythm, no murmur, no heave, no gallop. 7) ABDOMEN: No guarding, no rebound, no focal tenderness, negative McBurney's, negative Paul's, negative Rovsing's, negative peritoneal sign, 8) MUSCULOSKELETAL: Moving all extremities, no focal areas of tenderness, no obvious trauma. No peripheral edema or discoloration. 9) BACK: No CVA tenderness, no midline vertebral tenderness, no fluctuance, no step-off, no obvious trauma, no visual or palpable abnormality. 10) SKIN: No rash, no petechiae. 11) : Erythematous and excoriated scrotum. No tenderness. No urethral discharge. No evidence of Sara's gangrene.. No evidence of cellulitis DIFFERENTIAL DIAGNOSIS: In no particular include but limited to Sara's gangrene, tinea cruris, cellulitis. Smoking Status: Current every day smoker Constitutional: Initial Vital Signs Temperature (C) 36.9 C 06/15/17 10:17 Heart Rate 94 06/15/17 10:17 Respiratory Rate 16 06/15/17 10:17 Blood Pressure 131/80 H 06/15/17 10:17 O2 Sat (%) 98 06/15/17 10:17 O2 Delivery Mode Room Air Allergies/Adverse Reactions: seasonal Allergy (Mild, Uncoded 05/25/17 08:08) Home Medications: Medication Instructions Recorded Albuterol [Proventil Inhaler HFA 1 - 2 puffs IH Q4H 05/25/17 (*)] Budesonide/Formoterol 160/4.5 1 puffs IH BID 05/25/17 [Symbicort 160-4.5 Mcg Inh (*)] Cetirizine [ZyrTEC 10 mg (*)] 10 mg PO DAILY 05/25/17 Lisinopril [Zestril 10 mg (*)] 10 mg PO DAILY #7 tab 05/27/17 Metoprolol Tartrate [Lopressor 50 50 mg PO BID #14 tab 05/27/17 mg (*)] Nystatin [Mycostatin Cream (RX)] 1 blue TOP BID #45 g 06/15/17 Peg 3350/Na Sulf,Bicarb,Cl/KCl 1,000 ml PO ONCE #4000 ml 06/15/17 [Golytely (RX)] MDM/Departure - MDM ED Course/Re-evaluation: Patient has been re-evaluated with serial examinations. He has multiple complaints. He admits to alcohol use. He is complaining of continued itching and "balls burning "sensation. I think his symptoms are consistent with acute fungal etiology. He has no evidence of Sara's gangrene or cellulitis. I recommended topical nystatin. Regarding his constipation, is tolerating oral intake, he noodles before coming to the ER which he tolerated well with no vomiting no abdominal pain. He has an abdomen which is not distended. I have given a prescription for GoLYTELY and given him an enema to take home with him. He declines rectal examination. Doubt acute surgical abdominal pathology. Doubt bowel obstruction. I have offered to send [facility] to [facility] the where he would like to go as it is snowing outside and states that he is hungry. Care of patient under supervision of secondary supervising physician Dr Nieto . - Depart Disposition: Home, Routine, Self-Care Clinical Impression: Alcohol use, Tinea cruris Constipation Qualifiers: Constipation type: unspecified constipation type Qualified Code(s): K59.00 - Constipation, unspecified Condition: Good Instructions: Constipation (ED), Abuse of Alcohol (ED), Jock Itch (ED) Additional Instructions: Seek immediate medical attention if you develop new or worsening symptoms, if you develop fevers, chills, inability to tolerate oral intake or any other symptoms that concerns you. Prescriptions: Nystatin [Mycostatin Cream (RX)] 1 blue TOP BID #45 g Peg 3350/Na Sulf,Bicarb,Cl/KCl [Golytely (RX)] 1,000 ml PO ONCE #4000 ml Referrals: [facility],. [Clinic] - 1-2 days without fail
[2017-06-15 11:51] VITALS: BP 120/72; PULSE 80; RESP 15; TEMP 97.2; O2SAT 94
--- NOTE | 2017-06-15 12:58 | ASMTCMCOM ---
CM Note CM Note Notes: Pt presented to the ER today via ambulance for ETOH and constipation. Pt offered discharge to the [facility] for assistance with his drinking. Pt was initially interested, then decided he would rather discharge "home." Per MD notes, pt is homeless and wanted to go to the [facility] for warmth and because he was hungry. CM was prepared to offer resource information, but pt was hyper-focused on resolving his constipation issues. Pt not interested in ETOH cessation or homeless outreach programs at this time. Pt has had 6 visits to this ER in the past month. CM avail for any further issues or concerns Date Signed: 06/15/2017 12:57 PM Electronically Signed By:Lorin Avina RN
== END 2017-06-15 11:51 | disposition home or self-care (01) ==
LOC: EDBD → EDUNIT#
DX: F10.929 Alcohol use, unspecified with intoxication, unspecified (principal); B35.6 Tinea cruris; K59.00 Constipation, unspecified; F17.200 Nicotine dependence, unspecified, uncomplicated

== ENCOUNTER 2017-07-11 14:07 | Inpatient (IN) | payer OTHER ==
--- NOTE | 2017-07-11 14:10 | EDPHY ---
HPI/HX/ROS/PE/MDM Narrative: CHIEF COMPLAINT: Alcohol intoxication HPI: This patient is a 56 year old male with history of alcohol dependence, recently diagnosed genital herpes infection, arriving via EMS from home after his house- mates called for a welfare check. The patient reportedly has not been eating or drinking normally and has not showered in about five days. EMS found the patient sitting in his own urine and feces on the couch. He complains of an unknown rash over hands and a suspected wound on his sacral area. He was unable to ambulate on scene. The patient was admitted 05/25/17 for herpes infection as well as COPD exacerbation, alcoholism, and electrolyte abnormalities after being found in similar conditions on a welfare check. HPI primarily obtained from EMS report. REVIEW OF SYSTEMS: Aside from elements discussed in the HPI, a comprehensive 10-point review of systems was reviewed and is negative. PMH: Alcohol dependence with withdrawals, genital herpes, hypokalemia, COPD, shingles. SOCIAL HISTORY: Lives in [place]. [place]. Daily tobacco and alcohol use. PHYSICAL EXAM: General:Patient is alert, disheveled, obviously intoxicated. ENT:Eyes are normal to inspection. ENT inspection normal. Neck: Normal inspection. Full range of motion. Respiratory:No respiratory distress. Breath sounds normal bilaterally. Cardiovascular: Regular rate and rhythm. Strong peripheral pulses. Normal cap refill. Abdomen:The abdomen is nontender to palpation. There are no peritoneal signs. There are normal bowel sounds. Back: Normal to inspection. No tenderness to palpation. Skin: Diffuse maculopapular rash. Extremities: Normal appearance. Full range of motion. : Scrotum appears mildly erythematous with some weeping. No jw cellulitis , necrosis or mass. Neuro: Oriented x3. Normal motor function. Normal sensory function. ED Course: 56 y/o male presents with alcohol intoxication. Plan for labs including CBC, chemistries, troponin, EtOH. EtOH >300. Troponin elevated at 0.288. Plan for chest x-ray, EKG. EKG was ordered and interpreted by myself. Please see Talknote system for official reading. 16:44 Consulted with hospitalist service. Dr. Tobar accepts admission for alcohol intoxication, elevated troponin. 19:10 The patient was noted to be tachycardic, repeat EKG performed. Evidence of acut edynamic EKG changes with ST elevation in v3 with deep inverted T-wave. Cardiac alert called. Administered 325mg PO Aspirin. 19:[address] Lopez, staff nuclear weapons officer. Administered 50mg PO Metoprolol , 600mg PO Plavix, Heparin protocol per Dr. Lopez. - Data Points Imaging Results: Imaging Impressions Chest X-Ray 07/11/17 16:32 Impression: Left lower lobe airspace consolidation compatible with pneumonia. Imaging: I viewed and interpreted images myself Laboratory Results: Laboratory Results 07/11/17 15:13 07/11/17 15:13 07/11/17 07/11/17 15:13 15:13 WBC 6.89 10^3/uL 10^3/uL (3.80-9.50) RBC 3.44 10^6/uL L 10^6/uL (4.40-6.38) Hgb 13.2 g/dL L g/dL (13.7-17.5) Hct 37.3 % L % (40.0-51.0) MCV 108.4 fL H fL (81.5-99.8) MCH 38.4 pg H pg (27.9-34.1) MCHC 35.4 g/dL g/dL (32.4-36.7) RDW 13.9 % % (11.5-15.2) Plt Count 125 10^3/uL L 10^3/uL (150-400) MPV 9.6 fL fL (8.7-11.7) Neut % (Auto) 82.0 % H % (39.3-74.2) Lymph % (Auto) 8.1 % L % (15.0-45.0) [place] % (Auto) 8.6 % % (4.5-13.0) Eos % (Auto) 0.0 % L % (0.6-7.6) Baso % (Auto) 0.1 % L % (0.3-1.7) Nucleat RBC Rel Count 0.9 % H % (0.0-0.2) Absolute Neuts (auto) 5.65 10^3/uL 10^3/uL (1.70-6.50) Absolute Lymphs (auto) 0.56 10^3/uL L 10^3/uL (1.00-3.00) Absolute Monos (auto) 0.59 10^3/uL 10^3/uL (0.30-0.80) Absolute Eos (auto) 0.00 10^3/uL L 10^3/uL (0.03-0.40) Absolute Basos (auto) 0.01 10^3/uL L 10^3/uL (0.02-0.10) Absolute Nucleated RBC 0.06 10^3/uL H 10^3/uL (0-0.01) Immature Gran % 1.2 % H % (0.0-1.1) Immature Gran # 0.08 10^3/uL 10^3/uL (0.00-0.10) Sodium 145 mEq/L mEq/L (135-145) Potassium 3.5 mEq/L mEq/L (3.5-5.2) Chloride 97 mEq/L mEq/L (97-110) Carbon Dioxide 24 mEq/l mEq/l (22-31) Anion Gap 24 mEq/L H mEq/L (8-16) BUN 28 mg/dL H mg/dL (7-23) Creatinine 1.5 mg/dL H mg/dL (0.7-1.3) Estimated GFR 48 Glucose 89 mg/dL mg/dL (70-100) Calcium 7.8 mg/dL L mg/dL (8.5-10.4) Troponin I 0.288 ng/mL H ng/mL (0.000-0.034) Ethyl Alcohol > 300 mg/dL H mg/dL (0-10) Medications Given: Discontinued Medications Sodium Chloride (Ns) 1,000 mls @ 0 mls/hr IV EDNOW ONE; Wide Open PRN Reason: Protocol Stop: 07/11/17 14:18 Last Admin: 07/11/17 15:19 Dose: 1,000 mls General Time Seen by Provider: 07/11/17 14:09 Initial Vital Signs: Initial Vital Signs Temperature (C) 36.8 C 07/11/17 15:44 Heart Rate 88 07/11/17 15:44 Respiratory Rate 19 07/11/17 15:44 Blood Pressure 135/99 H 07/11/17 15:44 O2 Sat (%) 92 07/11/17 15:44 O2 Delivery Mode Nasal Cannula O2 (L/minute) 4 Allergies/Adverse Reactions: seasonal Allergy (Mild, Uncoded 07/11/17 15:48) Home Medications: Medication Instructions Recorded Albuterol [Proventil Inhaler HFA 1 - 2 puffs IH Q4H 05/25/17 (*)] Budesonide/Formoterol 160/4.5 1 puffs IH BID 05/25/17 [Symbicort 160-4.5 Mcg Inh (*)] Cetirizine [ZyrTEC 10 mg (*)] 10 mg PO DAILY 05/25/17 Lisinopril [Zestril 10 mg (*)] 10 mg PO DAILY #7 tab 05/27/17 Metoprolol Tartrate [Lopressor 50 50 mg PO BID #14 tab 05/27/17 mg (*)] Nystatin [Mycostatin Cream (RX)] 1 blue TOP BID #45 g 06/15/17 Peg 3350/Na Sulf,Bicarb,Cl/KCl 1,000 ml PO ONCE #4000 ml 06/15/17 [Golytely (RX)] Departure - Departure Dis[facility]: [facility] Clinical Impression: Elevated troponin Alcoholic intoxication Qualifiers: Complication of substance-induced condition: uncomplicated Qualified Code(s): F10.920 - Alcohol use, unspecified with intoxication, uncomplicated Condition: Fair Report Scribed for: Gab Silvestre Report Scribed by: Jayne Rios Date of Report: 07/11/17 Time of Report: 14:58 Physician Review and Approval Statement: Portions of this note were transcribed by an ED scribe. I personally performed the history, physical exam, and medical decision making; and confirm the accuracy of the information in the transcribed note.
[2017-07-11] MEDS ORDERED: NS 1,000 ML IV ONE (14:17)
[2017-07-11 15:18] LABS: PLATELET COUNT 125 10^3/uL (150-400)
--- NOTE | 2017-07-11 16:16 | CPEKG ---
Heart Rate: 109 RR Interval: 550 P-R Interval: 148 QRSD Interval: 86 QT Interval: 332 QTC Interval: 448 P [place]: 90 QRS [place]: 76 T Wave [place]: 268 EKG Severity - ABNORMAL ECG - EKG Impression: SINUS TACHYCARDIA EKG Impression: NONSPECIFIC T ABNORMALITIES, LATERAL LEADS Electronically Signed By: Ramin Ríos 17-Jul-2017 08:55:57
--- NOTE | 2017-07-11 16:32 | CPEKG ---
Heart Rate: 107 RR Interval: 561 P-R Interval: 184 QRSD Interval: 84 QT Interval: 348 QTC Interval: 465 P [place]: 84 QRS [place]: 77 T Wave [place]: -87 EKG Severity - BORDERLINE ECG - EKG Impression: SINUS TACHYCARDIA Electronically Signed By: Ramin Ríos 17-Jul-2017 08:55:51
--- NOTE | 2017-07-11 16:47 | ASMTCMCOM ---
CM Note CM Note Notes: Pt case reviewed at the request of ED Dr. Castellon. Pt's housemates called an ambulance after they returned home to find him in drunk in his own feces. Pt's STACI was >.300. ED RN Gab reported that the pt was discheveled and dirty with a skin rash, possibly shingles. Pt is a with benefits. Discharge plans should include contact and [facility]. Date Signed: 07/11/2017 04:47 PM Electronically Signed By:Enoc Kiser LCSW
[2017-07-11] MEDS ORDERED: ONDANSETRON 4 MG/2 ML VIAL IVP PRN (17:13)
[2017-07-11] MEDS ORDERED: ONDANSETRON DISINTEGRATING 4 MG TAB PO PRN (17:13)
[2017-07-11 18:55] LABS: CREATINE KINASE 467 IU/L (0-224)
[2017-07-11] MEDS ORDERED: NICOTINE POLACRILEX 2 MG GUM B PRN (18:55)
[2017-07-11] MEDS ORDERED: LORazepam 1 MG TAB PO PRN (18:55)
--- NOTE | 2017-07-11 19:00 | PDGENHP ---
History and Physical - Chief Complaint Acute inability to ambulate - History of Present Illness Primary care provider: [facility] Primary infectious Disease: Dr. Coleman HPI: 56-year-old male presents with acute inability to ambulate as reported by his roommates, who have characterized that the patient has been immobile and sitting in his own feces and urine, with associated lethargy, poor oral intake, pain located in his scrotum, arms and legs. The patient reports that he has significant weakness located diffusely throughout which has resulted in his inability to shower or get himself to the bathroom. He is unclear about how he is actually able to access alcohol, but he does endorse that he has recently been drinking alcohol profusely to manage the pain. He reports the pain is somewhat alleviated by drinking alcohol, and that he does not have any more oral pain medications available which he received on discharge most recently. The patient perseverates on the fact that he has been to our emergency department 5 times for scrotal pain, and does not feel like it is getting any better. He is unclear as to whether he is applying any topical ointments, but he does endorse that he had been taking the oral medications we prescribed after the most recent discharge. The patient denies any overt chest pain does endorse that he has been experiencing a nonproductive cough. History Information - Allergies/Home Medication List Allergies/Adverse Reactions: seasonal Allergy (Mild, Uncoded 07/11/17 15:48) Home Medications: Albuterol [Proventil Inhaler HFA (*)] 1 - 2 puffs IH Q4H 05/25/17 [Last Taken Unknown] Budesonide/Formoterol 160/4.5 [Symbicort 160-4.5 Mcg Inh (*)] 1 puffs IH BID [Last Taken Unknown] Cetirizine [ZyrTEC 10 mg (*)] 10 mg PO DAILY 05/25/17 [Last Taken Unknown] I have personally reviewed and updated: family history, medical history, social history, surgical history - Past Medical History Additional medical history: General herpes. VZV. COPD. Syncope secondary to alcohol abuse. Hypertension. Chronic genital wounds - Surgical History Additional surgical history: Tonsils. Adenoidectomy. Appendectomy - Family History Additional family history: Patient denies any family history of immunodeficiency - Social History Smoking Status: Current every day smoker Alcohol Use: Heavy Additional social history: Patient lives with roommates, he reports that he has been unemployed for approximately 1 year Review of Systems Review of Systems: ROS: 10pt was reviewed & negative except for what was stated in HPI & below Constitutional: Reports: weakness Respiratory: Reports: cough Genitourinary: Reports: pain (The general area on the penis and the scrotum) Skin: Reports: rash (On the palms, dorsal surfaces of hands, bilateral lower extremities), other (Skin breakdown on the penis and scrotum) Physical Exam Physical Exam: Temp Pulse Resp BP Pulse Ox 36.8 C 88 19 135/99 H 92 07/11/17 15:44 07/11/17 15:44 07/11/17 15:44 07/11/17 15:44 07/11/17 15:44 Constitutional: chronically ill appearing, uncomfortable, unkempt, cachectic ( Proximal muscle wasting), other (Malodorous), No not in pain (Moderate) Eyes: PERRL, anicteric sclera, EOMI Ears, Nose, Mouth, Throat: moist mucous membranes, hearing normal, ears appear normal, no oral mucosal ulcers Cardiovascular: tachycardia, edema (On the dorsal surfaces of bilateral feet), No systolic murmur, No irregularly irregular Respiratory: reduced air movement (On inspiration and expiration bilaterally), No expiratory wheeze, No inspiratory crackles, No bronchial breath sounds, No respiratory distress Gastrointestinal: normoactive bowel sounds, soft, non-tender abdomen, no palpable masses, No distension Genitourinary: other (Excoriation of the penile head, scrotum, bilateral inguinal areas) Skin: other (Flaking bilateral palms, papular rash on dorsum of hands, bilateral lower extremities) Musculoskeletal: other (Muscle atrophy bilateral lower extremities) Neurologic: AAOx3, sensation intact bilaterally, weakness (Motor strength is 3/ 5 bilateral lower extremities), No asterixes (No tremulousness bilateral upper extremity) Psychiatric: not anxious, not encephalopathic, thought process linear, poor insight, other (Affect fluctuates wildly, currently calm) Lab Data & Imaging Review 07/11/17 15:13 07/11/17 15:13 WBC 6.89 10^3/uL (3.80-9.50) 07/11/17 15:13 RBC 3.44 10^6/uL (4.40-6.38) L 07/11/17 15:13 Hgb 13.2 g/dL (13.7-17.5) L 07/11/17 15:13 Hct 37.3 % (40.0-51.0) L 07/11/17 15:13 MCV 108.4 fL (81.5-99.8) H 07/11/17 15:13 MCH 38.4 pg (27.9-34.1) H 07/11/17 15:13 MCHC 35.4 g/dL (32.4-36.7) 07/11/17 15:13 RDW 13.9 % (11.5-15.2) 07/11/17 15:13 Plt Count 125 10^3/uL (150-400) L 07/11/17 15:13 MPV 9.6 fL (8.7-11.7) 07/11/17 15:13 Neut % (Auto) 82.0 % (39.3-74.2) H 07/11/17 15:13 Lymph % (Auto) 8.1 % (15.0-45.0) L 07/11/17 15:13 [place] % (Auto) 8.6 % (4.5-13.0) 07/11/17 15:13 Eos % (Auto) 0.0 % (0.6-7.6) L 07/11/17 15:13 Baso % (Auto) 0.1 % (0.3-1.7) L 07/11/17 15:13 Nucleat RBC Rel Count 0.9 % (0.0-0.2) H 07/11/17 15:13 Absolute Neuts (auto) 5.65 10^3/uL (1.70-6.50) 07/11/17 15:13 Absolute Lymphs (auto) 0.56 10^3/uL (1.00-3.00) L 07/11/17 15:13 Absolute Monos (auto) 0.59 10^3/uL (0.30-0.80) 07/11/17 15:13 Absolute Eos (auto) 0.00 10^3/uL (0.03-0.40) L 07/11/17 15:13 Absolute Basos (auto) 0.01 10^3/uL (0.02-0.10) L 07/11/17 15:13 Absolute Nucleated RBC 0.06 10^3/uL (0-0.01) H 07/11/17 15:13 Immature Gran % 1.2 % (0.0-1.1) H 07/11/17 15:13 Immature Gran # 0.08 10^3/uL (0.00-0.10) 07/11/17 15:13 Sodium 145 mEq/L (135-145) 07/11/17 15:13 Potassium 3.5 mEq/L (3.5-5.2) 07/11/17 15:13 Chloride 97 mEq/L (97-110) 07/11/17 15:13 Carbon Dioxide 24 mEq/l (22-31) 07/11/17 15:13 Anion Gap 24 mEq/L (8-16) H 07/11/17 15:13 BUN 28 mg/dL (7-23) H 07/11/17 15:13 Creatinine 1.5 mg/dL (0.7-1.3) H 07/11/17 15:13 Estimated GFR 48 07/11/17 15:13 Glucose 89 mg/dL (70-100) 07/11/17 15:13 Calcium 7.8 mg/dL (8.5-10.4) L 07/11/17 15:13 Troponin I 0.288 ng/mL (0.000-0.034) H 07/11/17 15:13 Ethyl Alcohol > 300 mg/dL (0-10) H 07/11/17 15:13 Visualized and Interpreted Chest x-ray results: Yes Chest X-Ray results: other (Possible infiltrate left base) Visualized and Interpreted EKG results: Yes EKG Interpretation: Positive for: other (ST elevation isolated in lead V3, T- wave inversions inferiorly) Assessment & Plan Assessment: 56-year-old male presents with persistent PE now and scrotal wound, alcohol intoxication, acute kidney injury, abnormal troponin level, inability to care for self Plan: 1. Penile and scrotal wounds. Reviewed outside records including 05/27/[address] Negrita Peterson, characterizes patient's MSSA infection of the affected area, received Infectious Disease consultation, was also discharged on empiric fluconazole and Valtrex -is unclear whether the area is simply excoriated or cellulitic, given that he has a normal white blood cell count and no fever, will hold on empiric antibiotics at this time -will get Infectious Disease consultation in a.m. As well as wound care consultation -continue nystatin topical 2. Acute kidney injury. Most likely secondary to poor access to oral nutrition and hydration, resulting in hypovolemia -give IV fluids, repeat level in a.m. 3. Abnormal troponin level. Acute, new problem this provider, further workup indicated. Unclear relevance, patient does not have a history of an elevated troponin level and is unclear whether it is falsely elevated in the setting of renal failure or elevated in the setting of cardiac strain with malnutrition and alcohol intoxication -review of outside records demonstrates previous history of isolated ST elevation in lead V3, patient does not appear to be having an ST-elevation myocardial infarction at this time given his absence of chest pain, hemodynamic stability -continue monitor on telemetry -continue cycle cardiac enzymes -given patient's history of immobility and potential for DVT with PE, check a D- dimer and if elevated get lower extremity ultrasounds and ultimately V/Q scan 4. Alcohol intoxication. Acute, alcohol level greater than 300, patient has a history of alcohol abuse and is unclear whether he truly intends to address this as an issue -the patient passed flatus on Dr. Silvestre -that being said, is most likely complicating his above situation, will offer him detox with CIWA score 5. Weakness. Acute, new problem this provider, further workup indicated. Possibly secondary to alcohol intoxication versus alcohol induced myopathy versus malnutrition -get CPK -monitor phosphorus level while refeeding -continue on high-dose thiamine given his alcohol consumption -consider chest CT imaging given possible mass in left base on chest x-ray, high risk for malignancy given his above habits -engage with PT OT and consider care home facility 6. Severe protein calorie malnutrition. Evidenced by proximal muscle wasting, peripheral edema from malnutrition, poor access to solids and liquids -get dietary consult -dietary supplements -get pre-albumin level Diet. Regular comma encourage Prophylaxis. High risk patient, heparin subcu Code. Full at present, his son and daughter are joint MD POA Disposition. Anticipated discharge is uncertain this time, anticipated length stay is greater than 48 hr warranting inpatient admission status for reasonable medical necessity including generalized weakness resulting in inability to ambulate and inability to perform self-care with resultant malnutrition, acute kidney injury, worsening scrotal wounds, abnormal troponin level, and concomitant acute alcohol intoxication. I have discussed patient's presentation with Dr. Gab Silvestre, we both in agreement that the patient cannot be safely discharged home from the emergency department and he will require inpatient admission status to address all the issues as outlined above.
[2017-07-11] MEDS ORDERED: METOPROLOL TARTRATE 5 MG/5 ML INJ IVP ONE (19:22)
[2017-07-11] MEDS ORDERED: ASPIRIN 325 MG TAB PO ONE (19:25)
[2017-07-11] MEDS ORDERED: CLOPIDOGREL BISULFATE 75 MG TAB PO ONE (19:26)
[2017-07-11] MEDS ORDERED: HEPARIN 10,000 UNIT/10 ML MDV (1,000 UNIT/ML) IVP ONE (19:26)
[2017-07-11] MEDS ORDERED: HEPARIN 10,000 UNIT/10 ML MDV (1,000 UNIT/ML) IVP PRN (19:27)
--- NOTE | 2017-07-11 19:28 | CPEKG ---
Heart Rate: 104 RR Interval: 577 P-R Interval: 132 QRSD Interval: 86 QT Interval: 340 QTC Interval: 448 P Patterson: 81 QRS Patterson: 76 T Wave Patterson: 20 EKG Severity - OTHERWISE NORMAL ECG - EKG Impression: SINUS TACHYCARDIA EKG Impression: ST elevation in lead V3 V4 Electronically Signed By: Ramin Ríos 17-Jul-2017 08:55:31
[2017-07-11] MEDS ORDERED: HEPARIN/DEXTROSE 500 ML IV SCH (19:30)
[2017-07-11 19:34] LABS: PLATELET COUNT 103 10^3/uL (150-400)
[2017-07-11] MEDS ORDERED: LIDOCAINE 1% 300 MG/30 ML SDV ONE (19:41)
[2017-07-11 19:42] LABS: INR 1.04 (0.83-1.16); PROTIME(PATIENT) 13.8 SEC (12.0-15.0)
[2017-07-11] MEDS ORDERED: IOPAMIDOL (ISOVUE-370) 150 ML BTL IV ONE (19:42)
[2017-07-11] MEDS ORDERED: fentaNYL 100 MCG/2 ML INJ ONE (19:42)
[2017-07-11] MEDS ORDERED: MIDAZOLAM 2 MG/2 ML VIAL ONE (19:42)
[2017-07-11] MEDS ORDERED: METOPROLOL TARTRATE 5 MG/5 ML INJ ONE (20:05)
[2017-07-11] MEDS ORDERED: NYSTATIN 15 GM CR TUBE TP SCH (21:00)
--- NOTE | 2017-07-11 21:25 | GCON ---
[f rep st] CONSULTATION CARDIOLOGY CONSULT CHIEF COMPLAINT: Acute chest pain. HISTORY OF PRESENT ILLNESS: This is a 56-year-old male who apparently was found in a lethargic state earlier today by his roommates. The patient was brought to the emergency room where he was found to be highly intoxicated on alcohol and was sitting in his own feces and urine with associated lethargy , poor oral intake. The patient did wake as the day went on and did have initially a creatinine 1.5 and troponin of 0.2. His ECG initially was just sinus rhythm with no acute ST changes. However, blue roximately 10 minutes ago, the patient did have acute onset of chest pain and repeat ECG showed ST el evation in V3 with mild elevation in V2. The patient has had multiple frequent admissions to [facility] over the last few weeks. Currently, the patient's blood pressure is 150/90 with a heart rate of 110. He denies any recent crack or cocaine use. PAST MEDICAL HISTORY: Significant for seasonal allergies, COPD, and herpes. HOME MEDICATIONS: Consist of albuterol, . PAST SURGICAL HISTORY: Significant for adenectomy, appendectomy, tonsillectomy. FAMILY HISTORY: Noncontributory. SOCIAL HISTORY: The patient is apparently living with roommates. Indicated he had been unemployed f or over 1 year. Heavy alcohol use as well as current smoker. Has utilized drugs including marijuana and cocaine, though the patient denies taking either in the last 24 hours. REVIEW OF SYSTEMS: The patient currently denies any vision change. No headache. No palpitations. Does indicate having dull substernal chest pain. No shortness of breath. No abdominal pain. He newton s indicate having chronic scrotal and groin pain. No lower extremity pain. PHYSICAL EXAM: VITAL SIGNS: Afebrile 96, blood pressure 150/90 with heart 110, respirations 12, sat urating 95% on 2 L nasal cannula. HEENT: Pupils equal, round, reactive to light and accommodation. Extraocular muscles intact. CARDIOVASCULAR: Tachycardic. S1, S2. No murmurs. LUNGS: Clear to a uscultation bilaterally. ABDOMEN: Soft, tender, guarding. EXTREMITIES: No clubbing, no cyanosis w ith minimal pitting edema in the lower extremities. The patient does have evidence of scrotal abrasi ons and rash. NEUROLOGICALLY: The patient is alert and orient x3. LABORATORY VALUES: Currently show ethyl alcohol level over 300. D-dimer 3.8, hemoglobin of 11.8, he matocrit 32, platelet count of 103, creatinine 1.5, BUN 28, troponin of 0.25. ASSESSMENT/PLAN: Chest pain. At this time, the patient has evidence of dynamic ST changes on his EC G. He does have baseline troponin of 0.225 currently. His chest pain has been controlled with hepar in, nitroglycerin, and aspirin. The patient is agreed for cardiac catheterization for further evalua tion. /[id number]/MODL
[2017-07-11] MEDS: ALBUTEROL 60 PUFFS/8 GM MDI IH SCH ×2 (21:59→23:22)
[2017-07-11] MEDS ORDERED: HEPARIN 5,000 UNIT/0.5 ML SYR SC SCH (22:00)
[2017-07-11] MEDS: NS W/ 20 KCl/L 1,000 ML IV SCH (22:07)
[2017-07-11] MEDS: METOPROLOL TARTRATE 50 MG TAB PO SCH (22:31)
--- NOTE | 2017-07-11 23:10 | PDMN ---
Medical Necessity Medical necessity: C/M review: Patient meets INPT criteria per [facility] Wound and skin care management, Systemic or infectious disease GRG (Severe protein calorie malnutrition), Neurology GRG (Muscle weakness, generalized): Acute and persistently worsening penile and scrotal wounds, acute - kidney injury, BUN 28 , Cr 1.5, abnormal troponin level 0.288, 0.251, alcohol intoxication, ETOH level > 300, generalized weakness with inability to ambulate and inability to perform self care, , severe protein calorie malnutrition, BMI 21.2 kg/m2, creatine kinase 467, BNP 1080, Ca 7.8, D Dimer 3.85, patient medically unstable to discharge requiring planned VQ lung scan to evaluate for possible PE, Infectious disease consult, Wound care consult, Dietary consult, 07/11/2017 cardiac catheterization, ongoing IV Heparin infusion, IV fluids, cardiac monitoring, pulse oximetry, CIWA protocol, acute inpt PT/OT, comorbid 05/25/2018 -05/27/2017 observation hospitalization for MSSA infection of penile and scrotal wounds - discharged on empiric fluconazole and Valtrex, patient has been immobile and sitting in his own feces and urine with associated poor oral intake , pain located in his scrotum, arms and legs drinking alcohol profusely to manage the pain prior to this admission, 5 ED visits prior to this admission, history of general herpes, varicella zoster virus, COPD, syncope secondary to alcohol abuse, hypertension, chron ic genital wounds, current every day smoker. MD anticipates > 2 MN LOS for ongoing med nec for eval and TX of above.
[2017-07-11] MEDS: BUDESONIDE/FORMOTEROL 160/4.5 60 PUFFS/MDI IH SCH (23:23)
[2017-07-11] MEDS: LORazepam 2 MG/ML INJ IVP PRN (23:52)
[2017-07-12] MEDS: NICOTINE 21 MG/24 HR PATCH TD SCH ×2 (00:14→08:34)
[2017-07-12] MEDS: ALBUTEROL 60 PUFFS/8 GM MDI IH SCH ×3 (01:31→09:02)
--- NOTE | 2017-07-12 02:26 | CPIP ---
[f rep st] INVASIVE CARDIAC PROCEDURE DATE OF PROCEDURE: 07/11/2017 INDICATION FOR PROCEDURE: Chest pain, ST elevation, positive troponin. PROCEDURE: 1. Nonselective right groin sheathogram. 2. Bilateral selective coronary angiography and left heart catheterization. 3. Left ventriculogram. 4. Right groin closure with 6-Ugandan Angio-Seal. HISTORY: Briefly, this is a 56-year-old male who was admitted to [facility] with complaints of lethargy, fa tigue. Patient had acute onset chest pain while his workup was being performed. He had a troponin e levation of 0.28. He had dynamic ST changes in V3 leads. Given these findings, the patient has cons ented for emergent left heart catheterization. After informed consent, the patient was brought to [facility] production laborer where right groin was prepped and draped in a sterile fashion. Using lidocaine, a short 6 -Ugandan sheath was placed in right common femoral artery, verified angiographically. Through the 6-F rench sheath, the JL4 catheter was advanced to the left coronary artery. Images of the left coronary artery revealed normal short left main. Left circumflex artery was healthy and free of disease, giv ing off 2 small marginal 1 artery, followed by a medium-sized marginal 2 artery which terminated into a marginal 3 artery. The AV groove circ was healthy and free of disease. The LAD was a long vessel which wrapped around the apex. The LAD gave off multiple diagonal arteries, all of which were healt hy and free of disease. There was a ramus intermedius which appeared to be healthy and free of disea se, which was of medium size. After imaging obtained, the JL4 catheter was advanced to the right cor onary artery. Imaged right coronary artery revealed normal os, prox distal RCA. The RPDA and RPLS a ppeared to be healthy and free of disease. As the images were obtained, the JR4 catheters were remov ed. The pigtail catheter was advanced to the left ventricle. LVEDP is 15 mmHg. Left ventriculogram obtained in the BRAMBILA projection showed an EF of 65% with no wall motion abnormalities. No pullback g radient between the LV and the aorta. Pigtail catheter was then removed over the 0.035 wire. Right groin was closed with 6-Ugandan Angio-Seal. Patient tolerated the procedure well with no complication s. IMPRESSION: 1. Normal coronary arteries. 2. Normal ejection fraction. PLAN: The patient's underlying chest pain could be caused by an underlying pulmonic issue versus unc ontrolled hypertension. Would continue with aggressive medical therapy. Patient will be seen by the hospital service and pulmonary embolism will be ruled out with further testing. /[id number]/MODL
[2017-07-12] MEDS: LORazepam 2 MG/ML INJ IVP PRN ×6 (03:16→23:17)
[2017-07-12 04:23] LABS: PLATELET COUNT 93 10^3/uL (150-400)
[2017-07-12] MEDS ORDERED: LIDOCAINE 2% JELLY 20 ML (UROJECT) ONE (04:51)
[2017-07-12 05:27] LABS: CREATINE KINASE 357 IU/L (0-224)
[2017-07-12] MEDS ORDERED: DEXMEDETOMIDINE HCL 400 MCG in NS 100 ML IV SCH (06:30)
[2017-07-12] MEDS ORDERED: DEXMEDETOMIDINE IN 0.9 % NACL 50 ML IV SCH (06:30)
[2017-07-12] MEDS: NS W/ 20 KCl/L 1,000 ML IV SCH ×2 (07:56→15:55)
[2017-07-12] MEDS: THIAMINE HCL 500 MG in NS 250 ML IV SCH (08:34)
[2017-07-12] MEDS: NYSTATIN 15 GM OINTMENT TP SCH ×2 (08:35→20:37)
[2017-07-12] MEDS: BUDESONIDE/FORMOTEROL 160/4.5 60 PUFFS/MDI IH SCH (09:02)
[2017-07-12] MEDS: ACETAMINOPHEN 325 MG TAB PO PRN ×2 (09:24→15:14)
[2017-07-12] MEDS: METOPROLOL TARTRATE 50 MG TAB PO SCH ×2 (09:24→20:36)
[2017-07-12] MEDS ORDERED: NS W/ 20 KCl/L 1,000 ML IV SCH (09:30)
[2017-07-12] MEDS ORDERED: cefTRIAXone 1 GM in STERILE WATER INJ 10 ML IV SCH (09:45)
--- NOTE | 2017-07-12 09:45 | PDCARPN ---
Cardiology Progress Note Assessment/Plan: Assessment/plan: 57-year-old male admitted through the ER with altered mental status, weakness, dynamic EKG changes. He has been unable to care for himself at home and was acutely intoxicated with alcohol. Yesterday evening he was taken urgently to the optical laboratory technician by Dr. Lopez because of dynamic EKG changes. He had normal coronary arteries and normal left ventricular ejection fraction. He was admitted to the ICU for further management of his multiple medical problems. 1. Abnormal EKG: This may be related to pulmonary embolism. He is empirically on a heparin drip, as he did not get a CT pulmonary angiogram yesterday due to acute kidney injury. His kidney function has improved, and he will have a CT pulmonary angiogram this morning. Could consider ECHO if he does not have a PE to further clarify his abnormal EKG. Troponin may be elevated due to right heart strain. 2. Alcohol and tobacco abuse: He may be withdrawing from alcohol based on his hypertension and tachycardia. This is being managed by ICU and Hospital Medicine. 3. Acute kidney injury: Improved today. Continue hydration. 4. Left lower lobe infiltrate: Febrile this morning. Empiric antibiotics. CT scan of chest is pending. 5. Abnormal LFTs: Likely related to alcohol use 6. Anemia: Hematocrit has dropped with fluid resuscitation. No overt bleeding. 7. Hypertension: May be related to alcohol withdrawal. He is on beta-blockers. 8. Chronic scrotal wounds: He will need wound care. 9. Severe malnutrition: May require assistance at home or placement as a bridge to home. It sounds like he has not been able to care for self at home. We will sign off. Please call with questions. Thank you 07/12/17 09:53 Subjective: Reports chest pain and dyspnea, but his history is quite vague. Reviewed/Discussed With: multidisciplinary team, other (Dr. Gutiérrez and Dr. Lyles ) Objective: Vital Signs (8 Hrs) Temp Pulse Resp BP Pulse Ox 07/12/17 08:00 39.2 C H 94 32 H 148/84 H 98 07/12/17 06:00 96 28 H 133/79 H 97 07/12/17 05:42 102 H 28 H 100 07/12/17 05:00 102 H 24 H 172/92 H 98 07/12/17 04:00 119 H 20 154/85 H 92 07/12/17 02:00 115 H 20 152/86 H 96 Intake/Output (24 Hrs) 07/11/17 07/12/17 07/13/17 05:59 05:59 05:59 Intake Total 2064 Output Total 200 Balance 1864 Intake: Oral (ml) 50 IV Infused (ml) 2013 Heparin/Dextrose 500 ml @ 177 Per Protocol IV CONT SHAWANDA Rx#:[id number] NS W/ 20 KCl/L 1,000 ml @ 837 100 mls/hr IV CONT SHAWANDA Rx#:[id number] Output: Urine (ml) 200 Catheter 200 Other: Weight 72 kg 72 kg Number of Voids Incontinence 3 Urinal 6 Disheveled. Cachectic. Not answering questions consistently. JVP less than 10. Regular rate and rhythm without murmur or gallop lungs intermittent coarse breath sounds anteriorly he has some oozing from his right groin arteriotomy site but no hematoma. Minimal bilateral lower extremity edema. Skin with diffuse excoriations. Chest x-ray shows left lower lobe infiltrate Result Diagrams: 07/12/17 04:10 07/12/17 04:10 Cardiac Labs: Cardiac Lab Results (72 Hrs) 07/12/17 07/11/17 04:10 18:30 CK-MB (CK-2) Fraction 1.00 2.64 Troponin I 0.232 H 0.251 H EKG: Serial tracings reviewed. There is some dynamic T-wave changes as well as dynamic ST elevation in lead V3. Telemetry: Sinus tachycardia ICD10 Worksheet Patient Problems: Problems Problem Status Onset Alcoholic intoxication Acute Scrotal infection Acute Elevated troponin Acute
--- NOTE | 2017-07-12 09:55 | HOSPPROG ---
Hospitalist Progress Note Assessment/Plan: 57 yo M admitted w weakness, alcohol intoxication, + trop, genital lesions and ekg changes CV: cath w clean coronaries ekg w V3 ST elevation PE workup planned echo if negative LLL infiltrate and now fever start ceftriaxone/azith/flagyul for suspected aspiration pneumonia gential lesions: scabbed over so late for ACV presumed HSV alcoholism: high risk for withdrawal start librium 35 tid scheduled encephalopathy: attributable no alcohol withdrawal proph: on heparin gtt now dispo: ICU, high risk Subjective: case d/w dr parks, dr tabor. cxr w LLL infiltrate (interp by me) Objective: Vital Signs Temp Pulse Resp BP Pulse Ox 39.2 C H 108 H 32 H 148/84 H 98 07/12/17 08:00 07/12/17 09:24 07/12/17 08:00 07/12/17 08:00 07/12/17 08:00 Microbiology 07/11/17 19:37 Respiratory Panel (PCR) - Final Nasal, Sinus - Swab No Organism Detected Laboratory Results 07/12/17 04:10 07/12/17 04:10 07/11/17 07/12/17 07/13/17 05:59 05:59 05:59 Intake Total 2064 Output Total 200 Balance 1864 PT 13.8 SEC (12.0-15.0) 07/11/17 19:25 INR 1.04 (0.83-1.16) 07/11/17 19:25 - Physical Exam Constitutional: other (thin, disheveled, confused) Eyes: PERRL, anicteric sclera Ears, Nose, Mouth, Throat: moist mucous membranes, hearing normal Cardiovascular: regular rate and rhythym, no murmur, rub, or gallop Respiratory: no respiratory distress, other (crackles and rhonchi L base) Gastrointestinal: normoactive bowel sounds, soft, non-tender abdomen Genitourinary: no bladder fullness, carvalho in urethra, other (scabbed lesions on penis) Skin: warm, normal color Musculoskeletal: full muscle strength, no muscle tenderness Neurologic: AAOx3, sensation intact bilaterally Psychiatric: interacting appropriately, not anxious ICD10 Worksheet Patient Problems: Problems Problem Status Onset Alcoholic intoxication Acute Elevated troponin Acute Scrotal infection Acute
[2017-07-12] MEDS: chlordiazePOXIDE 25 MG CAP PO SCH ×3 (09:59→20:36)
[2017-07-12] MEDS: CETIRIZINE 10 MG TAB PO SCH (09:59)
[2017-07-12] MEDS ORDERED: AZITHROMYCIN IV 500 MG in NS 250 ML IV SCH (10:00)
[2017-07-12] MEDS ORDERED: AMPICILLIN/SULBACTAM 3 GM in NS 100 ML IV SCH (12:30)
[2017-07-12] MEDS: AMPICILLIN/SULBACTAM 3 GM in STERILE WATER INJ 8 ML IV SCH ×3 (13:09→23:17)
--- NOTE | 2017-07-12 13:22 | GCON ---
[f rep st] CONSULTATION INFECTIOUS DISEASE CONSULT. DATE OF CONSULTATION: 07/12/2017 REFERRING PHYSICIAN: Ariel Tobar MD REASON FOR CONSULT: To assist in the management of this 57-year-old male admitted with acute alcohol intoxication, now with left lower lobe pneumonia and question of recurrent scrotal ulcerations. HISTORY OF PRESENT ILLNESS: The patient is an unfortunate 57-year-old male whose previous medical history is notable for the followin. Long-standing alcoholism. 2. Tobacco use disorder. 3. COPD. 4. History of varicella zoster. It should be noted that the patient was recently admitted to [facility] from May 25 through May 27 when he presented with alcohol intoxication and was found to have a large ulceration on the underside of his phallus. Infectious Disease was consulted and multiple tests were obtained including HIV antibody testing that was negative, syphilis IgG negative, hepatitis B surface antigen and core antibody negative, hepatitis C antibody that was negative as well as RNA. Testing for herpes simplex included a PCR which was also negative. He underwent testing for other sexually transmitted infections including gonorrhea, chlamydia, and ureaplasma which were negative. Varicella zoster DNA negative as well. A culture of the ulcer was obtained and grew 3+ MSSA. The patient was ultimately discharged on Valtrex and doxycycline. Unfortunately, he was readmitted to [facility] yesterday when he was brought in in the late afternoon via EMS after his housemates called for a welfare check. The patient by report had not been eating or drinking normally and had not showered in several days. they found him sitting in his urine and fecal matter on the couch. The patient was complaining to them of a rash on his hands and legs and was unable to ambulate. He was taken to [facility] emergency room, where his ethyl alcohol level was over 300. His troponin was also elevated with evidence concerning for an ST-elevation myocardial infarction. He was given aspirin and Cardiology was consulted. The patient underwent cardiac catheterization, which showed normal coronary arteries and normal left ventricular ejection fraction. He was admitted to the intensive care unit subsequently for further evaluation and treatment. Of note, given concern for a pulmonary embolism causing his ST elevations, he was sent for a CT angiogram today that by report is negative for pulmonary embolus. A chest x-ray previously revealed a left lower lobe infiltrate. Antibiotics have been ordered with ceftriaxone, azithromycin, and metronidazole. I am now asked to assist in his management given his febrile state, ? scrotal ulcerations, and rash on his hands and lower extremities. The patient is extremely out of it and unable to provide a meaningful medical history. That being said, when I asked him if he was sexually active, he said he had a female partner and has been with the same woman for quite some time. He states that he does not have any pets and he has not traveled anywhere recently. He states that he occasionally gets oral ulcerations in his mouth. He could not tell me how long he has had the rash on his hands and lower extremities. PAST MEDICAL HISTORY: Previous medical history is outlined above. MEDICATIONS: Presently include Zyrtec, Librium, heparin, Ativan, Lopressor, NicoDerm, Nicorette. ALLERGIES: Seasonal allergies. No known drug allergies. SOCIAL HISTORY: Unobtainable. By report, the patient lives with several roommates and has a female sex partner. he has a history of tobacco use disorder and alcoholism. When I asked him about other illicit substances, he shook his head and adamantly denied that. No pets, as outlined above. FAMILY HISTORY: Unobtainable. REVIEW OF SYSTEMS: Unobtainable. PHYSICAL EXAM: VITALS: T current is 38.9, T-max 39.2, heart rate 96, blood pressure 147/89, 96% on 2 L. GENERAL: Appears slightly younger than stated age, lying in bed, intermittently dozing off. HEENT: Atraumatic, normocephalic. Pupils equal, round, reactive to light. Arcus senilis bilaterally. No petechiae or scleral icterus noted. Dentition in poor repair. No oral lesions or thrush noted. Dry lips. No cervical or supraclavicular adenopathy. He does have some shotty inguinal nodes, left greater than right. CARDIOVASCULAR: Tachycardic S1, S2. Cannot appreciate a heart murmur. LUNGS: No increased respiratory effort. Diminished breath sounds at the lung bases anterolaterally. ABDOMEN: Scaphoid, soft. No organomegaly or tenderness to palpation. : Circumcised phallus. He has a Ortiz catheter in place with some bloody debris emanating from the urethra. After cleaning his scrotal area, the patient 's previous noted penile ulceration has resolved. I could not appreciate any scrotal ulcerations, per se. There is a very small ulceration lateral to the phallus with a clean base. It is small. There is no scrotal swelling or tenderness. The patient's backside is notable for some excoriation and dry skin on his buttocks and lower back. No obvious perianal lesions. SKIN: The patient has erythematous papular lesions on the dorsal and volar aspects of his hands. The volar aspects of his hands are extremely dry with exfoliation of the epidermal layer. His lower extremities are notable for occasional scattered palpable purpura, with a small eschar noted on the underside of his right knee. He also has scattered palpable purpura on his feet and lower extremities. His feet are somewhat swollen. NEUROLOGIC: The patient is sedated. He is moving all 4 extremities. LABORATORY DATA: Microbiologic data: Blood cultures x2 are pending. Previous scrotal swab from May 25 grew Staph aureus, susceptible to methicillin. Notable labs as outlined in the HPI include previous negative HIV testing, syphilis IgG, chlamydia/gonorrhea screens, hepatitis C, quantitative RNA, hepatitis B core antibody and surface antigen, negative VZV and HSV RNA of the penile ulceration. Present laboratories include a white cell count of 4.8, hematocrit 31, platelet count of 93, 84% neutrophils. BUN and creatinine 23/1.3 , AST of 109, ALT 70, alkaline phosphatase 167, CK of 357 down from 467 with a negative MB fraction. Procalcitonin of 0.9. Urinalysis with 2+ blood, 1+ protein. RADIOGRAPHIC DATA: Status post chest and thorax CT angiogram which by report is negative for pulmonary embolus. I will go review this. Chest x-ray shows left lower lobe infiltrate. IMPRESSION: Unfortunate 57-year-old alcoholic male status post recent admission for penile ulceration and complications related to alcoholism. Status post extensive evaluation by Infectious Disease service at that time with negative tests for herpes simplex, varicella, syphilis, and other sexually transmitted infections. The wound was felt to be secondarily infected with methicillin-susceptible Staphylococcus aureus, and he was treated appropriately with doxycycline. He now re-presents with acute alcohol intoxication, left lower lobe infiltrate, and a rash that appears consistent with palpable purpura on his lower extremities, hands and feet. The previous penile ulceration has resolved; he has a very small ulceration lateral to the phallus. The etiology of his rash is unclear at this time. It does not appear consistent with a more nefarious disease process such as toxic shock syndrome, meningococcal disease, etc. Query underlying vasculitis with skin rash, ulcerations, and pulmonary disease. PLAN: 1. Start Unasyn 3 g IV q.6 hours for possible aspiration pneumonia in this gentleman with acute alcohol intoxication. 2. Urine legionella antigen has been sent. 3. I do not feel compelled to repeat his HIV antibody test at this point in time given negative test 6 weeks ago. 4. Will repeat syphilis IgG for completeness' sake, as this test can be negative early in the course of primary syphilis. 5. Obtain vasculitic studies (ANCA's) as well as FRANKI and double-stranded DNA testing. 6. Obtain Dermatology consult on Friday; consider skin biopsy of one of the lesions. 7. Would obtain influenza PCR for completeness' sake. Thank you very much for consulting Infectious Disease. We will continue to follow this patient with you. /[id number]/MODL MTDD
[2017-07-12] MEDS: IPRATROPIUM/ALBUTEROL 3 ML DEYVIAL IH SCH ×2 (16:36→21:34)
--- NOTE | 2017-07-12 17:36 | ASMTCMCOM ---
CM Note CM Note Notes: Pt admitted with AMS, wweakness, elevated troponins, etoh intoxication, malnutrition. 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 PT/OT evals pending. Pt is a and may not be caring for himself at home. CM will follow for any d/c needs. Date Signed: 07/12/2017 05:35 PM Electronically Signed By:EMILIE Harrison
--- NOTE | 2017-07-12 17:48 | GCON ---
[f rep st] CONSULTATION PULMONARY CRITICAL CARE CONSULTATION. DATE OF CONSULTATION: 07/12/2017 REASON FOR CONSULTATION: Pneumonia, alcohol withdrawal. HISTORY: The patient is a 57-year-old who presented to the emergency department yesterday. He was f ound by housemates disheveled and sitting in his own urine and feces. He was transported to the [facility] department by EMS. Blood alcohol level on admission was greater than 300. Benzodiazepines wer e also positive. 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 He was empirically placed on heparin for the possibility of acute pulmonary embolic disease. CT angiogram was not initially done secondary to a high creatinine. Initial chest x-ray showed a le ft lower lobe pneumonia. He had skin lesions over his hands, feet, and elsewhere and a genital lesio n which was seen over a month ago when he was admitted to the hospital again with alcohol intoxicatio n. Multiple tests were negative, including HIV, syphilis, hepatitis, herpes simplex, and evaluation for STDs. Culture of his genital ulcer did grow MSSA. He was discharged on Valtrex and doxycycline. PAST MEDICAL HISTORY: Remarkable for chronic alcohol abuse. He is a long-standing smoker. He has C OPD and emphysema, and a history of varicella zoster. SOCIAL HISTORY: He lives with roommates. Further information is currently not available. He has de nied drugs to others. FAMILY HISTORY: Noncontributory/unobtainable. REVIEW OF SYSTEMS: Unobtainable secondary to somnolence. PHYSICAL EXAMINATION: GENERAL: Reveals a gentleman who is resting comfortably. He does arouse but falls back to sleep. He is oriented to person and place. VITAL SIGNS: Blood pressure is approximat cristal 145/85, heart rate 100 with sinus rhythm on the monitor. On 2 L of oxygen, saturations are 95%. Respiratory rate is approximately 30. He is febrile to 38.9. HEENT: Remarkable for dry mucous mem branes. Pupils appear equal. There are no subconjunctival petechiae. CHEST: Clear anteriorly. Br eath sounds are diminished at the bases, and expiratory phase is prolonged. Some bibasilar rales are present with some borderline consolidative changes. HEART: Tachycardic. There is a soft systolic murmur, no obvious gallop. P2 is difficult to appreciate, positive and elevated. ABDOMEN: Soft and nontender. Bowel sounds are present. There is no obvious organomegaly. EXTREMITIES: Remarkable f or papular lesions, with associated erythema, primarily over the hands. There are some lesions as we ll on his feet and about the knees. GENITALIA: His genitalia were examined by others. The previous ly seen penile ulceration, by report, has resolved. There is a small ulceration lateral to his penis , as described by Dr. Shepherd. It is small. DATA: CT scan of the chest done today shows bilateral pulmonary consolidation at the bases. There i s no evidence of pulmonary emboli. Emphysema is present. LABORATORY: Sodium 143, potassium 3.5, CO2 of 26, with an anion gap of 17, creatinine 1.3, with a BU N of 23. Glucose is 119, calcium 7.4, phosphorus 2.3, magnesium 1.7, total bilirubin 1.7, with AST 1 09 and ALT 70. Total CPK is 37, with a negative MB. C-reactive protein is high at 235. Albumin is 3, procalcitonin 0.97. TSH is normal. Urinalysis on admission was negative. White blood cell count was 4800, hematocrit 30.7. PT and PTT were normal on admission. Influenza A/B by PCR was negative. Tox screen is as outlined above, positive for blood alcohol over 300 and benzodiazepines. . ASSESSMENT: 1. Pneumonia. Probably secondary to aspiration, in turn secondary to altered mental status associat ed with alcoholism. This was discussed with Infectious Disease. Unasyn was recommended. This has b een initiated. 2. Acute and chronic alcoholism, with alcohol withdrawal. He is on the CIWA protocol, although this is somewhat difficult to assess at this time secondary to altered mental status. 3. Altered mental status. This is likely toxic metabolic, in addition to alcohol withdrawal. He is oriented x2, lethargic, and easily falls back to sleep. This will be followed. 4. Skin rash. He does have a maculopapular and erythematous rash. Dermatologic consultation and po ssibly biopsy will be needed. A vasculitic process cannot be excluded. Initial studies have been dr cohen. 5. Recent methicillin-sensitive Staphylococcus aureus genital infection. This appears to have signi ficantly improved. 6. History of chronic obstructive pulmonary disease/emphysema, secondary to long-standing and ongoin g tobacco abuse. A nicotine patch will be given. DuoNeb can be used p.r.n. There is no evidence of a significant exacerbation at this time. PLAN AND RECOMMENDATIONS: The patient will be kept in the intensive care unit and followed closely. CIWA protocol will be continued. Unasyn will be given for aspiration pneumonia. Chest x-ray will b e followed. Full-dose heparin drip will be stopped. Enoxaparin will be given prophylactically. Duo Neb will be ordered. Famotidine will be given intravenously initially. Laboratory will be followed. Further plans and recommendations will be made based on his progress over the next 12-24 hours. /[id number]/MODL
[2017-07-12] MEDS: oxyCODONE IR 5 MG TAB PO PRN ×2 (18:20→22:32)
[2017-07-12] MEDS: FAMOTIDINE 20 MG/NACL 50 ML IV SCH (20:36)
[2017-07-13] MEDS: LORazepam 2 MG/ML INJ IVP PRN ×7 (01:23→22:53)
[2017-07-13] MEDS: DEXMEDETOMIDINE IN 0.9 % NACL 50 ML IV SCH ×5 (01:59→20:28)
[2017-07-13 03:41] LABS: PLATELET COUNT 72 10^3/uL (150-400)
[2017-07-13] MEDS: AMPICILLIN/SULBACTAM 3 GM in STERILE WATER INJ 8 ML IV SCH ×3 (05:34→17:55)
[2017-07-13] MEDS ORDERED: PROTOCOL CALCIUM 1 DOSE IV PRN (05:40)
[2017-07-13] MEDS ORDERED: PROTOCOL POTASSIUM 1 DOSE MISC PRN (05:40)
[2017-07-13] MEDS ORDERED: PROTOCOL MAGNESIUM 1 DOSE IV PRN (05:40)
[2017-07-13] MEDS ORDERED: PROTOCOL K PHOSPHATE 1 DOSE IV PRN (05:40)
[2017-07-13] MEDS: IPRATROPIUM/ALBUTEROL 3 ML DEYVIAL IH SCH ×2 (05:47→11:37)
[2017-07-13] MEDS: POTASSIUM Cl (KCl) 10 MEQ in D5W 100 ML IV SCH ×4 (06:09→08:00)
[2017-07-13] MEDS ORDERED: MAGNESIUM SULF 1 GM/DEXTROSE 100 ML IV ONE (06:41)
[2017-07-13] MEDS ORDERED: CALCIUM CHLORIDE 1 GM in D5W 50 ML IV ONE (06:45)
[2017-07-13] MEDS: THIAMINE HCL 500 MG in NS 250 ML IV SCH (08:56)
[2017-07-13] MEDS: chlordiazePOXIDE 25 MG CAP PO SCH ×3 (08:57→21:12)
[2017-07-13] MEDS: FAMOTIDINE 20 MG/NACL 50 ML IV SCH ×2 (08:57→21:12)
[2017-07-13] MEDS: NICOTINE 21 MG/24 HR PATCH TD SCH (08:57)
[2017-07-13] MEDS: CETIRIZINE 10 MG TAB PO SCH (08:57)
[2017-07-13] MEDS: METOPROLOL TARTRATE 50 MG TAB PO SCH ×2 (08:58→21:13)
[2017-07-13] MEDS: ENOXAPARIN 40 MG/0.4 ML SYR SC SCH (09:01)
[2017-07-13] MEDS: NYSTATIN 15 GM OINTMENT TP SCH ×2 (09:02→22:53)
--- NOTE | 2017-07-13 10:07 | PCMIDPN ---
Assessment/Plan: 1. Multifocal aspiration pneumonia: Continue Unasyn for now. Stable from a respiratory standpoint. 2. Rash: Scabies seems less likely. Discontinue contact isolation. Will attempt to call Dermatology today to see if they can biopsy 1 of the lesions. Vasculitis workup underway. Previous hepatitis B testing negative. Repeat Syphilis IgG pending. 3. Delirium tremens: Continue Precedex. 4. Groin intertrigo: Nystatin powder. 07/13/17 10:06 Subjective: Nurse reports that patient was going through delirium tremens this morning, so Precedex drip started. No diarrhea. Objective: Unasyn 3 g IV q.6 hours day 1 T-max 38.9 degrees 99% on 1 L Vital Signs Temp Pulse Resp BP Pulse Ox 37.1 C 87 28 H 124/92 H 99 07/13/17 08:00 07/13/17 08:58 07/13/17 08:00 07/13/17 08:58 07/13/17 08:00 Microbiology 07/11/17 19:37 Respiratory Panel (PCR) - Final Nasal, Sinus - Swab No Organism Detected Laboratory Results 07/13/17 03:20 07/13/17 03:20 07/12/17 07/13/17 07/14/17 05:59 05:59 05:59 Intake Total 2064 3538.7 Output Total 200 1700 Balance 1864 1838.7 ESR 54 MM/HR (0-20) H 07/12/17 13:15 C-Reactive Protein 235.7 mg/L (<10.0) H 07/12/17 13:15 Blood cultures x2 negative - Physical Exam General Appearance: other (Sedated.) EENT: No thrush Cardiac/Chest: tachycardia Abdomen: non-tender, soft Male Genitalia: other (Ortiz catheter in place. Patient has some exfoliation of the skin on the phallus, but I cannot appreciate any significant ulcerations. ) Skin: other (Firm, erythematous papular lesions, some consistent with palpable purpura on the lower extremities, dorsum of the hands, inside of the fingers. Elbows are also crusted and erythematous. ) ICD10 Worksheet Patient Problems: Problems Problem Status Onset Alcoholic intoxication Acute Elevated troponin Acute Scrotal infection Acute
--- NOTE | 2017-07-13 12:40 | PDINTPN ---
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 On Unasyn. WBC normal, no fever, minimal oxygen needs. Alcoholism/alcohol withdrawal: Currently being managed with PO Librium, PRN IV Ativan, and Precedex. Currently fairly sedated. Rash: ? cause. History COPD: Minimal O2 needs,CT chest with just mild emphysema. Plan: Continue antibiotics. Taper Precedex, adjust benzos. Dermatology consult regarding rash. Nebs PRN. Continue Enoxaparin. 07/13/17 12:52 Subjective: Unintelligible responses to questions. Objective: Vital Signs Temp Pulse Resp BP Pulse Ox 37 C 90 26 H 102/73 97 07/13/17 12:00 07/13/17 12:00 07/13/17 12:00 07/13/17 12:00 07/13/17 12:00 Microbiology 07/11/17 19:37 Respiratory Panel (PCR) - Final Nasal, Sinus - Swab No Organism Detected Laboratory Results 07/13/17 03:20 07/13/17 11:30 07/12/17 07/13/17 07/14/17 05:59 05:59 05:59 Intake Total 2064 3538.7 Output Total 200 1700 Balance 1864 1838.7 PT 13.8 SEC (12.0-15.0) 07/11/17 19:25 INR 1.04 (0.83-1.16) 07/11/17 19:25 CT Chest: Extensive bibasilar pneumonia. Mild emphysema. Images reviewed by me. Physical Exam - Physical Exam General Appearance: no apparent distress, No alert EENT: normal ENT inspection, pharynx normal Neck: normal inspection Respiratory: crackles (bases), No normal breath sounds, No respiratory distress Cardiac/Chest: regular rate, rhythm, No edema Abdomen: normal bowel sounds, non-tender, soft Male Genitalia: other (partial tumescence, non-tender) Skin: other (extensive dry papules dorsum of hands, extremities.) Extremities: normal inspection Neuro/Psych: No alert, No normal mood/affect, No oriented x 3, No motor weakness ICD10 Worksheet Patient Problems: Problems Problem Status Onset Alcoholic intoxication Acute Elevated troponin Acute Scrotal infection Acute
[2017-07-13] MEDS ORDERED: POTASSIUM Cl (KCl) 100 ML IV SCH (13:45)
--- NOTE | 2017-07-13 14:09 | HOSPPROG ---
Hospitalist Progress Note Assessment/Plan: 57 yo M admitted w weakness, alcohol intoxication, + trop, genital lesions and ekg changes CV: cath w clean coronaries ekg w V3 ST elevation PE workup planned echo if negative LLL infiltrate and now fever start ceftriaxone/azith/flagyul for suspected aspiration pneumonia gential lesions: scabbed over so late for ACV presumed HSV hand lesions: syphilis serologies sent derm eval 07/14 alcoholism: high risk for withdrawal start librium 25 tid scheduled encephalopathy: attributable no alcohol withdrawal wean precedex priapism: edematous penis, not erection proph: on heparin gtt now dispo: ICU, high risk Subjective: does not have an erection. case d/w minor Objective: Vital Signs Temp Pulse Resp BP Pulse Ox 37 C 90 26 H 102/73 97 07/13/17 12:00 07/13/17 12:00 07/13/17 12:00 07/13/17 12:00 07/13/17 12:00 Laboratory Results 07/13/17 03:20 07/13/17 11:30 07/12/17 07/13/17 07/14/17 05:59 05:59 05:59 Intake Total 2064 3538.7 Output Total 200 1700 Balance 1864 1838.7 PT 13.8 SEC (12.0-15.0) 07/11/17 19:25 INR 1.04 (0.83-1.16) 07/11/17 19:25 - Physical Exam Constitutional: no apparent distress, appears nourished, other (on precedex. opens eyes to voice) Eyes: PERRL, anicteric sclera Ears, Nose, Mouth, Throat: moist mucous membranes, hearing normal Cardiovascular: regular rate and rhythym, no murmur, rub, or gallop Respiratory: no respiratory distress, other (rhonchi L > R) Gastrointestinal: normoactive bowel sounds, soft, non-tender abdomen Genitourinary: no bladder fullness, No carvalho in urethra Skin: warm, normal color Musculoskeletal: no muscle tenderness, No full muscle strength Neurologic: No AAOx3 ICD10 Worksheet Patient Problems: Problems Problem Status Onset Alcoholic intoxication Acute Elevated troponin Acute Scrotal infection Acute
[2017-07-13] MEDS: POTASSIUM Cl (KCl) 10 MEQ in NS 100 ML IV SCH (14:26)
[2017-07-13] MEDS ORDERED: IPRATROPIUM/ALBUTEROL 3 ML DEYVIAL IH PRN (14:30)
[2017-07-13] MEDS: MELATONIN 3 MG TAB PO SCH (21:12)
[2017-07-13] MEDS: oxyCODONE IR 5 MG TAB PO PRN (21:13)
[2017-07-13] MEDS: NS 1,000 ML IV SCH (22:00)
[2017-07-14] MEDS: AMPICILLIN/SULBACTAM 3 GM in STERILE WATER INJ 8 ML IV SCH ×5 (00:59→23:40)
[2017-07-14] MEDS: LORazepam 2 MG/ML INJ IVP PRN ×3 (02:59→23:39)
[2017-07-14] MEDS: NS 1,000 ML IV SCH (07:27)
[2017-07-14] MEDS ORDERED: CALCIUM GLUCONATE 50 ML IV ONE (08:24)
[2017-07-14] MEDS ORDERED: CALCIUM GLUCONATE 1 GM in NS 100 ML IV ONE (08:30)
[2017-07-14] MEDS: THIAMINE HCL 500 MG in NS 250 ML IV SCH (08:43)
[2017-07-14] MEDS: ENOXAPARIN 40 MG/0.4 ML SYR SC SCH (09:21)
[2017-07-14] MEDS: CETIRIZINE 10 MG TAB PO SCH (09:21)
[2017-07-14] MEDS: oxyCODONE IR 5 MG TAB PO PRN (09:21)
[2017-07-14] MEDS: METOPROLOL TARTRATE 50 MG TAB PO SCH ×2 (09:21→21:07)
[2017-07-14] MEDS: NICOTINE 21 MG/24 HR PATCH TD SCH (09:23)
[2017-07-14] MEDS: chlordiazePOXIDE 25 MG CAP PO SCH ×3 (09:28→21:07)
[2017-07-14] MEDS: DEXMEDETOMIDINE IN 0.9 % NACL 50 ML IV SCH ×3 (10:12→23:50)
[2017-07-14] MEDS: FAMOTIDINE 20 MG/NACL 50 ML IV SCH (10:13)
--- NOTE | 2017-07-14 10:17 | WOCRNPDOC ---
WOCRN Advanced Assessment Note - Skin Integrity Problem, Advanced Assess Generalized Genital Area Dressing Type: Open to Air Julissa Wound Tissue: Erythema Skin Integrity Problem Comment: Intertrigenous dermatitis in groin folds with scrotal edema and erythema. Much improved since when patient was assessed. There are many fewer ulcerations. Likely fungal involvement. Recommend initiating MAD cream. Wound care will sign off. Please reconsult if no improvement by next week. GHASSAN Haile in room.
[2017-07-14] MEDS: FAMOTIDINE 20 MG TAB PO SCH ×2 (12:12→21:08)
[2017-07-14] MEDS: NYSTATIN 15 GM OINTMENT TP SCH ×2 (12:13→19:30)
--- NOTE | 2017-07-14 12:56 | HOSPPROG ---
Hospitalist Progress Note Assessment/Plan: 57 yo M admitted w weakness, alcohol intoxication, + trop, genital lesions and ekg changes CV: cath w clean coronaries ekg w V3 ST elevation PE workup planned LLL infiltrate and now fever start ceftriaxone/azith/flagyul for suspected aspiration pneumonia gential lesions: scabbed over so late for ACV presumed HSV hand lesions: syphilis serologies neg outpt derm eval alcoholism: high risk for withdrawal start librium 25 tid scheduled he appears worse today agitated but also somnolent precedex as needed encephalopathy: attributable to alcohol withdrawal wean precedex priapism: edematous penis, not erection proph: enox dispo: ICU, high risk Subjective: case d/w dr mortensen. agitated this AM requiring precedex w subsequent somnolence. now more awake w stopping of precedex Objective: Vital Signs Temp Pulse Resp BP Pulse Ox 37.3 C 87 27 H 114/82 H 100 07/14/17 10:00 07/14/17 11:01 07/14/17 11:01 07/14/17 11:01 07/14/17 11:01 Laboratory Results 07/13/17 03:20 07/14/17 05:40 07/13/17 07/14/17 07/15/17 05:59 05:59 05:59 Intake Total 3538.7 3344.4 Output Total 1700 840 80 Balance 1838.7 2504.4 -80 PT 13.8 SEC (12.0-15.0) 07/11/17 19:25 INR 1.04 (0.83-1.16) 07/11/17 19:25 - Physical Exam Constitutional: no apparent distress, appears nourished Eyes: PERRL, anicteric sclera Ears, Nose, Mouth, Throat: other (dry MM, poor dentition) Cardiovascular: regular rate and rhythym, no murmur, rub, or gallop Respiratory: no respiratory distress, other (b/l rhonchi L>R) Gastrointestinal: normoactive bowel sounds, soft, non-tender abdomen Genitourinary: no bladder fullness, carvalho in urethra, other (no new penile lesions; no erection) Skin: warm, normal color Musculoskeletal: no muscle tenderness, No full muscle strength Neurologic: No AAOx3 ICD10 Worksheet Patient Problems: Problems Problem Status Onset Alcoholic intoxication Acute Elevated troponin Acute Scrotal infection Acute
--- NOTE | 2017-07-14 14:25 | PCMIDPN ---
Assessment/Plan: Assessment: fevers without leukocytosis. likely secondary to multifocal aspiration disease secondary to acute alcohol intoxication. Plan to continue the monotherapy with Unasyn and follow temp curve. Clinically the patient is continuing to go through withdrawal. He is on multiple medications that are sedating. 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 Plan: 1. Continue IV Unasyn. 2. follow clinical improvement. Subjective: Patient is resting comfortably in his room. He is on multiple sedating medications. Objective: Unasyn #2 Vital Signs Temp Pulse Resp BP Pulse Ox 37.3 C 98 28 H 114/82 H 2 L 07/14/17 10:00 07/14/17 12:00 07/14/17 12:00 07/14/17 11:01 07/14/17 12:00 Laboratory Results 07/13/17 03:20 07/13/17 07/14/17 07/15/17 05:59 05:59 05:59 Intake Total 3538.7 3344.4 Output Total 1700 840 80 Balance 1838.7 2504.4 -80 ESR 54 MM/HR (0-20) H 07/12/17 13:15 C-Reactive Protein 235.7 mg/L (<10.0) H 07/12/17 13:15 - Physical Exam General Appearance: WD/WN, alert, no apparent distress, non-toxic Respiratory: crackles, No lungs clear, No normal breath sounds Cardiac/Chest: regular rate, rhythm, No tachycardia Extremities: non-tender, other ( multiple skin lesions including blisters and tiny vesicles.), No normal inspection Skin: normal color, warm/dry, rash Neuro/Psych: No alert ICD10 Worksheet Patient Problems: Problems Problem Status Onset Alcoholic intoxication Acute Elevated troponin Acute Scrotal infection Acute
--- NOTE | 2017-07-14 16:20 | PDINTPN ---
Music Typographer Progress Note Assessment/Plan: Assessment/plan: 57 M with hx etoh found by roommates sitting in his own feces and intoxicated, admitted 07/11/17 with aspiration PNA. Treated with Unasyn with thorough ID evaluation- recently seen at [facility] with scrotal/penile lesions and extensive negative w/u. Also with pustiular rash on bilateral hands. * PNA- stable on current abx * MS change- related to etoh intoxication * etoh w/d- on CIWA with librium, precedex, benzos per protocol * rash- anticipate biopsy soon. Porphyria? Check total porphyrins Subjective: non verbal Objective: Vital Signs Temp Pulse Resp BP Pulse Ox 37.3 C 95 31 H 114/81 H 100 07/14/17 10:00 07/14/17 14:00 07/14/17 14:00 07/14/17 14:00 07/14/17 14:00 Laboratory Results 07/13/17 03:20 07/14/17 13:45 07/13/17 07/14/17 07/15/17 05:59 05:59 05:59 Intake Total 3538.7 3344.4 Output Total 1700 840 80 Balance 1838.7 2504.4 -80 PT 13.8 SEC (12.0-15.0) 07/11/17 19:25 INR 1.04 (0.83-1.16) 07/11/17 19:25 Physical Exam - Physical Exam General Appearance: no apparent distress, obtunded EENT: PERRL/EOMI Neck: supple Respiratory: lungs clear, normal breath sounds, No respiratory distress, No accessory muscle use Cardiac/Chest: regular rate, rhythm, No edema Abdomen: non-tender, soft, No distended Skin: warm/dry, rash, No diaphoresis Lymphatic: no adenopathy Extremities: No pedal edema Neuro/Psych: cognition abnormalities ICD10 Worksheet Patient Problems: Problems Problem Status Onset Alcoholic intoxication Acute Elevated troponin Acute Scrotal infection Acute
[2017-07-14] MEDS: THIAMINE HCL 100 MG TAB PO SCH (19:30)
[2017-07-14] MEDS: MELATONIN 3 MG TAB PO SCH (21:08)
[2017-07-15] MEDS: LORazepam 2 MG/ML INJ IVP PRN ×4 (02:10→21:30)
[2017-07-15] MEDS: POTASSIUM Cl (KCl) 10 MEQ in NS 100 ML IV SCH ×5 (02:10→23:15)
[2017-07-15] MEDS: AMPICILLIN/SULBACTAM 3 GM in STERILE WATER INJ 8 ML IV SCH ×3 (05:33→17:43)
[2017-07-15] MEDS: DEXMEDETOMIDINE IN 0.9 % NACL 50 ML IV SCH ×3 (05:35→20:09)
[2017-07-15] MEDS ORDERED: CALCIUM GLUCONATE 50 ML IV ONE (06:46)
[2017-07-15] MEDS ORDERED: CALCIUM GLUCONATE 1 GM in D5W 50 ML IV ONE (07:00)
--- NOTE | 2017-07-15 08:45 | HOSPPROG ---
Hospitalist Progress Note Assessment/Plan: # acute encephalopathy - etOH w/d and pna # bilat aspiration pna - cont unasyn # acute hypoxic resp failure - d/t pna; may need intubation given mental status and worsening pna # etOH abuse and w/d - cont CIWA; off prexedex currently, may need again - thiamine # dorsum of hand rash - 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; other serologies negative # genital lesions, presumed HSV # abnormal ECG s/p negative cath # htn - holding meds # dvt ppx - lovenox Subjective: sedated - precedex turned off this am by RN; not agitated overnight per nursing Objective: Vital Signs Temp Pulse Resp BP Pulse Ox 37.7 C 94 40 H 132/94 H 100 07/15/17 08:00 07/15/17 08:00 07/15/17 08:00 07/15/17 08:00 07/15/17 08:00 Laboratory Results 07/13/17 03:20 07/15/17 06:15 07/14/17 07/15/17 07/16/17 05:59 05:59 05:59 Intake Total 3344.4 2656.8 Output Total 840 830 Balance 2504.4 1826.8 PT 13.8 SEC (12.0-15.0) 07/11/17 19:25 INR 1.04 (0.83-1.16) 07/11/17 19:25 chart reviewed ECG personally reviewed CTa reviewed - Physical Exam Constitutional: other (sleeping, arouses to loud voice) Cardiovascular: regular rate and rhythym, no murmur, rub, or gallop Respiratory: rhonchi (bilat), other (tachypneic; bilat basilar rales), No expiratory wheeze Gastrointestinal: normoactive bowel sounds, soft, non-tender abdomen Genitourinary: carvalho in urethra ICD10 Worksheet Patient Problems: Problems Problem Status Onset Alcoholic intoxication Acute Scrotal infection Acute Elevated troponin Acute
[2017-07-15] MEDS: NICOTINE 21 MG/24 HR PATCH TD SCH (09:18)
[2017-07-15] MEDS: FAMOTIDINE 20 MG TAB PO SCH ×2 (09:19→21:38)
[2017-07-15] MEDS: chlordiazePOXIDE 25 MG CAP PO SCH ×3 (09:19→21:30)
[2017-07-15] MEDS: METOPROLOL TARTRATE 50 MG TAB PO SCH ×2 (09:19→21:38)
[2017-07-15] MEDS: CETIRIZINE 10 MG TAB PO SCH (09:19)
[2017-07-15] MEDS: NYSTATIN 15 GM OINTMENT TP SCH ×2 (09:19→23:15)
[2017-07-15 09:26] LABS: PLATELET COUNT 98 10^3/uL (150-400)
[2017-07-15] MEDS: ENOXAPARIN 40 MG/0.4 ML SYR SC SCH (09:36)
[2017-07-15] MEDS: THIAMINE HCL 100 MG TAB PO SCH (09:36)
--- NOTE | 2017-07-15 12:25 | PCMIDPN ---
Assessment/Plan: Assessment/Plan: * Multifocal pneumonia likely secondary to aspiration: Bilateral pulmonary infiltrates with associated tenuous respiratory status. Continue Unasyn which has good coverage for oropharyngeal wiley. * Alcohol withdrawal: Care under hospitalist and surgical garment fitter services * Rash: Evaluation for PCT pending. Rashes primarily present on sun-exposed areas although also noted on dorsal of feet and knees. Syphilis IgG is negative. * Fever: May be related to alcohol withdrawal. Will repeat blood cultures. Continue same antibiotics pending additional data. 07/15/17 12:22 07/15/17 15:11 Subjective: Patient is somnolent and tachypneic. Able to follow a few simple commands. Objective: Vital Signs Temp Pulse Resp BP Pulse Ox 38 C 100 30 H 136/98 H 100 07/15/17 10:00 07/15/17 10:00 07/15/17 10:00 07/15/17 10:00 07/15/17 10:00 Laboratory Results 07/15/17 09:10 07/14/17 07/15/17 07/16/17 05:59 05:59 05:59 Intake Total 3344.4 2656.8 Output Total 840 830 Balance 2504.4 1826.8 ESR 54 MM/HR (0-20) H 07/12/17 13:15 C-Reactive Protein 235.7 mg/L (<10.0) H 07/12/17 13:15 Unasyn # 3 Chest x-ray with bilateral pulmonary infiltrates Respiratory pathogen panel by PCR negative Blood cultures x2 no growth - Physical Exam General Appearance: non-toxic, other (Somnolent) EENT: No scleral icterus Respiratory: respiratory distress (Tachypneic), coarse breath sounds Cardiac/Chest: tachycardia Abdomen: non-tender, No distended Skin: rash (Papular rash over dorsal surfaces of hands with less prominent but similar rash over feet and knees) ICD10 Worksheet Patient Problems: Problems Problem Status Onset Alcoholic intoxication Acute Elevated troponin Acute Scrotal infection Acute
[2017-07-15] MEDS: D5W 1,000 ML IV SCH (13:52)
--- NOTE | 2017-07-15 14:49 | ASMTCMCOM ---
CM Note CM Note Notes: Patient mumbles at best. Unable to assess what he is saying. Therapies unable to eval as yet. CM to follow. Date Signed: 07/15/2017 02:48 PM Electronically Signed By:Enedina Sibley LCSW
--- NOTE | 2017-07-15 15:01 | PDINTPN ---
Cost Consultant Progress Note Assessment/Plan: Assessment/plan: 57 M with hx etoh found by roommates sitting in his own feces and intoxicated, admitted 07/11/17 with aspiration PNA. Treated with Unasyn with thorough ID evaluation- recently seen at [facility] with scrotal/penile lesions and extensive negative w/u. Also with pustiular rash on bilateral hands. * PNA- presumed aspiration. CXR clearly worse and resp status tenuous. Have looked twice today and dont feel intubation required at this time. Had gag reflex this afternoon. He may ultimately require ETT, however. Continuing Unasyn under ID direction. * MS change- related to etoh intoxication * etoh w/d- on CIWA with librium, precedex, benzos per protocol * rash- anticipate biopsy soon. Porphyria? Check total porphyrins Subjective: no events overnight. Precedex held this am with eventual return of tachycardia so restarted Objective: Vital Signs Temp Pulse Resp BP Pulse Ox 38.8 C H 137 H 41 H 147/95 H 99 07/15/17 14:32 07/15/17 14:32 07/15/17 14:32 07/15/17 14:32 07/15/17 14:32 Laboratory Results 07/15/17 09:10 07/15/17 11:50 07/14/17 07/15/17 07/16/17 05:59 05:59 05:59 Intake Total 3344.4 2656.8 Output Total 840 830 Balance 2504.4 1826.8 PT 13.8 SEC (12.0-15.0) 07/11/17 19:25 INR 1.04 (0.83-1.16) 07/11/17 19:25 Physical Exam - Physical Exam General Appearance: mild distress, obtunded EENT: PERRL/EOMI Neck: supple Respiratory: decreased breath sounds, No respiratory distress, No accessory muscle use Cardiac/Chest: regular rate, rhythm, No edema Abdomen: soft, No organomegaly, No distended Skin: normal color, warm/dry, rash Lymphatic: no adenopathy Extremities: No pedal edema Neuro/Psych: cognition abnormalities ICD10 Worksheet Patient Problems: Problems Problem Status Onset Alcoholic intoxication Acute Elevated troponin Acute Scrotal infection Acute
[2017-07-15] MEDS ORDERED: ACETAMINOPHEN 325 MG SUPP PR PRN (17:32)
[2017-07-15] MEDS ORDERED: ACETAMINOPHEN 650 MG SUPP PR ONE (17:41)
[2017-07-15] MEDS ORDERED: POTASSIUM Cl (KCl) 100 ML IV SCH (20:00)
[2017-07-15] MEDS: MELATONIN 3 MG TAB PO SCH (21:38)
[2017-07-16] MEDS: AMPICILLIN/SULBACTAM 3 GM in STERILE WATER INJ 8 ML IV SCH ×4 (00:10→18:37)
[2017-07-16] MEDS: DEXMEDETOMIDINE IN 0.9 % NACL 50 ML IV SCH ×4 (01:59→18:31)
[2017-07-16 05:17] LABS: PLATELET COUNT 176 10^3/uL (150-400)
[2017-07-16] MEDS ORDERED: POTASSIUM Cl (KCl) 100 ML IV SCH ×2 (06:45→14:18)
[2017-07-16] MEDS ORDERED: POTASSIUM Cl (KCl) 100 ML IV ONE (07:00)
[2017-07-16] MEDS: ENOXAPARIN 40 MG/0.4 ML SYR SC SCH (07:36)
[2017-07-16] MEDS: NICOTINE 21 MG/24 HR PATCH TD SCH (07:36)
[2017-07-16] MEDS: LORazepam 2 MG/ML INJ IVP PRN ×2 (07:47→09:34)
[2017-07-16] MEDS ORDERED: FUROSEMIDE 40 MG/4 ML VIAL IVP ONE (08:00)
--- NOTE | 2017-07-16 09:36 | PCMIDPN ---
Assessment/Plan: # Sepsis due to Aspiration PNA O2 Sat stable although elevated RR. Suspect elevated RR is due to EtOH withdrawal. Elevated PCT expected with underlying bacterial PNA, baseline PCT not obtained. Platelets normalized, WBC normal --continue Unasyn # Fever, Ddx EtOH w/d, drug fever, worsening PNA: no central line currently, blood cx repeated yesterday, continue to monitor, WBC normal. LFTs 07/13 with elevated AST, expected with EtOH --continue to monitor blood cx --no abx changes # Genital rash: resolved, thought to be bacterial in nature. STD testing normal , including HIV. meds unasyn 3gm IV q6 #4 micro 07/11 blood cx (2) NGTD 07/15 blood cx (2) pending Subjective: febrile yesterday Objective: Vital Signs Temp Pulse Resp BP Pulse Ox 37.6 C 107 H 41 H 109/78 93 07/16/17 07:52 07/16/17 07:52 07/16/17 07:52 07/16/17 07:52 07/16/17 07:52 Laboratory Results 07/16/17 05:10 07/16/17 05:10 07/15/17 07/16/17 07/17/17 05:59 05:59 05:59 Intake Total 2656.8 2446.9 Output Total 830 870 45 Balance 1826.8 1576.9 -45 ESR 54 MM/HR (0-20) H 07/12/17 13:15 C-Reactive Protein 235.7 mg/L (<10.0) H 07/12/17 13:15 - Physical Exam General Appearance: obtunded, thin EENT: pale conjunctiva, No scleral icterus Respiratory: coarse breath sounds (bases B) Neck: supple Cardiac/Chest: tachycardia Extremities: No pedal edema Abdomen: non-tender, soft Male Genitalia: carvalho, other (R groin puncture site without abn), No scrotal edema Skin: rash (scattered scaley small to medium sized plaques on dorsum of hands, elbows and scattered on legs) Neuro/Psych: confused - Time Spent With Patient Time Spent with Patient: greater than 35 minutes (care coordinated with Dr. Ordonez and Dr. Leonard) Time Spent with Patient: Greater than 35 minutes spent on this patients care, greater than 50% of time spent counseling, educating, and coordinating care regarding the above mentioned plan. ICD10 Worksheet Patient Problems: Problems Problem Status Onset Alcoholic intoxication Acute Elevated troponin Acute Scrotal infection Acute
[2017-07-16] MEDS: METOPROLOL TARTRATE 50 MG TAB PO SCH (09:57)
[2017-07-16] MEDS: THIAMINE HCL 100 MG TAB PO SCH (09:57)
[2017-07-16] MEDS: CETIRIZINE 10 MG TAB PO SCH (09:57)
[2017-07-16] MEDS: chlordiazePOXIDE 25 MG CAP PO SCH (09:57)
[2017-07-16] MEDS: FAMOTIDINE 20 MG TAB PO SCH (09:57)
[2017-07-16] MEDS ORDERED: ALTEPLASE 2 MG VIAL IVP PRN (10:38)
--- NOTE | 2017-07-16 10:44 | HOSPPROG ---
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 # abnormal ECG s/p negative cath # htn - holding meds # ppx - lovenox, pepcid 35 minutes of floor critical care time managing resp failure Subjective: patient still very confused - not really responding; RN concerned for aspiration Objective: Vital Signs Temp Pulse Resp BP Pulse Ox 37.5 C 106 H 43 H 112/83 H 96 07/16/17 10:00 07/16/17 10:00 07/16/17 10:00 07/16/17 10:00 07/16/17 10:00 Laboratory Results 07/16/17 05:10 07/16/17 05:10 07/15/17 07/16/17 07/17/17 05:59 05:59 05:59 Intake Total 2656.8 2446.9 Output Total 250 048 7415 Balance 1826.8 1576.9 -1070 PT 13.8 SEC (12.0-15.0) 07/11/17 19:25 INR 1.04 (0.83-1.16) 07/11/17 19:25 - Physical Exam Constitutional: other (sleeping, arouses to loud voice) Ears, Nose, Mouth, Throat: other (oral ulcers? signficant dried blood in mouth) Cardiovascular: regular rate and rhythym, no murmur, rub, or gallop Respiratory: inspiratory crackles (bilat bases), other (tachypneic) Gastrointestinal: soft, non-tender abdomen, no palpable masses ICD10 Worksheet Patient Problems: Problems Problem Status Onset Alcoholic intoxication Acute Scrotal infection Acute Elevated troponin Acute
[2017-07-16] MEDS ORDERED: LIDOCAINE 1% 300 MG/30 ML SDV ONE (10:52)
[2017-07-16] MEDS ORDERED: ETOMIDATE 40 MG/20 ML INJ IVP ONE (11:02)
[2017-07-16] MEDS ORDERED: MIDAZOLAM 2 MG/2 ML VIAL IVP ONE (11:04)
--- NOTE | 2017-07-16 11:17 | PDINTPN ---
Addiction Nurse Progress Note Assessment/Plan: Assessment/plan: 57 M with hx etoh found by roommates sitting in his own feces and intoxicated, admitted 07/11/17 with aspiration PNA. Treated with Unasyn with thorough ID evaluation- recently seen at [facility] with scrotal/penile lesions and extensive negative w/u. Also with pustiular rash on bilateral hands. * Acute respiratory failure with hypoxia- his ability to protect his airway in the setting of severe pneumonia has been waning the last couple of days. He was given lasix this am (40 mg iv) with excellent uop but no improvement in respiratory status. Subsequently required urgent/emergent intubation (dictated separately). Large mucous plug removed from left main stem and sent to lab for micro. * PNA- presumed aspiration. Remains on Unasyn; appreciate ID help. His etoh wd may be a barrier to adequate secretion management, hence his intubation * MS change- related to etoh intoxication * etoh w/d- on CIWA with librium, precedex, benzos per protocol. * rash- anticipate biopsy soon. Porphyria? Check total porphyrins- still pending * discussed in detail with multiple providers * * critical care time 60 minutes separate from procedures 07/16/17 11:14 Subjective: no major changes overnight, though increasing tachypnea. HR/RR rises on light precedex, resolves with higher dose Objective: Vital Signs Temp Pulse Resp BP Pulse Ox 37.5 C 106 H 43 H 112/83 H 96 07/16/17 10:00 07/16/17 10:00 07/16/17 10:00 07/16/17 10:00 07/16/17 10:00 Laboratory Results 07/16/17 05:10 07/16/17 05:10 07/15/17 07/16/17 07/17/17 05:59 05:59 05:59 Intake Total 2656.8 2446.9 Output Total 798 488 5902 Balance 1826.8 1576.9 -1070 PT 13.8 SEC (12.0-15.0) 07/11/17 19:25 INR 1.04 (0.83-1.16) 07/11/17 19:25 Physical Exam - Physical Exam General Appearance: moderate distress, obtunded EENT: PERRL/EOMI Neck: supple Respiratory: decreased breath sounds, rhonchi, No stridor, No wheezing Cardiac/Chest: regular rate, rhythm, tachycardia, No edema Abdomen: non-tender, soft, No distended Male Genitalia: other Skin: normal color, warm/dry, rash, No cyanosis Lymphatic: no adenopathy Extremities: No pedal edema Neuro/Psych: cognition abnormalities, No abnormal dragline mechanic II-XII ICD10 Worksheet Patient Problems: Problems Problem Status Onset Alcoholic intoxication Acute Elevated troponin Acute Scrotal infection Acute
[2017-07-16] MEDS ORDERED: ALBUMIN 25% 100 ML IV ONE (11:19)
[2017-07-16] MEDS ORDERED: LIDOCAINE 1% 300 MG/30 ML SDV MISC ONE (11:20)
[2017-07-16] MEDS: LORazepam 2 MG/ML INJ IVP SCH ×2 (11:47→18:07)
[2017-07-16] MEDS: NYSTATIN 15 GM OINTMENT TP SCH ×2 (12:01→20:20)
--- NOTE | 2017-07-16 13:13 | ASMTCMCOM ---
CM Note CM Note Notes: Spoke with Ethics regarding a proxy for patient. A new protocol has been implemented and when there is difficulty locating family of friends, Nurys Ross is contacted to assist with the search. Nurys has been contacted and [facility]ONG will follow the progress. Patient was intubated today and will go for dialysis. His BAL was 300 at admission per toxicology screen. He lives in a long-term possibly for veterans. CM will follow. Date Signed: 07/16/2017 01:12 PM Electronically Signed By:Suzanna Romero LCSW
[2017-07-16] MEDS: POTASSIUM Cl (KCl) 10 MEQ in NS 100 ML IV SCH ×3 (14:40→17:55)
--- NOTE | 2017-07-16 14:40 | GPN ---
[f rep st] PROCEDURE NOTE DATE OF PROCEDURE: 07/16/2017 PROCEDURE PERFORMED: Emergent intubation. INDICATIONS: Respiratory failure. CONSENT: Consent was waived due to the emergent nature of the procedure. ANESTHESIA: Conscious sedation was achieved using a total of 1 mg of Versed and 40 mg of etomidate. The patient tolerated these well without complications. DESCRIPTION OF PROCEDURE: After adequate sedation and appropriate instruments were available, on 1st look with direct laryngoscopy, there was poor visualization of the vocal cords without attempted int ubation. A GlideScope was then exchanged out with excellent visualization. An 8.0 endotracheal tube was placed on the 1st pass without difficulty. There was appropriate color change on capnography as well as condensation in the tube. Oxygen saturations were 95% to 100% in its entirety. Position of the tube was confirmed by subsequent bronchoscopy. /[id number]/MODL
--- NOTE | 2017-07-16 14:40 | GPN ---
[f rep st] PROCEDURE NOTE DATE OF PROCEDURE: 07/16/2017 PROCEDURE: Bronchoscopy. INDICATION: Pneumonia. CONSENT: Waived due to the emergent nature of the procedure. SEDATION: Already achieved with previous intubation. PROCEDURE IN DETAIL: The bronchoscope was easily passed through the recently placed endotracheal tub e. There was a large, thick mucus plug at the left mainstem right at the level of the ashu, dippin g over into the right mainstem. This was easily suctioned. Subsequent visualization of all the segm ents of the left lower lobe was easily obtained. There were not a lot of secretions in this region. The remainder of the lung also did not have significant secretions. Specimens were sent for appropr iate microbiologic studies. Patient tolerated the procedure well. /[id number]/MODL
[2017-07-16] MEDS: D5W 1,000 ML IV SCH (20:19)
[2017-07-16] MEDS: CHLORHEXIDINE GLUCONATE 15 ML UDL PO SCH (20:19)
[2017-07-16] MEDS: FAMOTIDINE 20 MG/NACL 50 ML IV SCH (20:20)
[2017-07-16] MEDS: METOPROLOL TARTRATE 50 MG TAB TUBE SCH ×2 (20:21→21:25)
[2017-07-16] MEDS ORDERED: fentaNYL/NACL 100 ML IV SCH (20:30)
[2017-07-16] MEDS: PROPOFOL/EMULSION 100 ML IV SCH (21:04)
[2017-07-16] MEDS ORDERED: POTASSIUM Cl (KCl) 50 ML IV ONE (21:23)
[2017-07-16] MEDS: RANITIDINE HCL 150 MG/10 ML UDCUP TUBE SCH (21:24)
[2017-07-17] MEDS: LORazepam 2 MG/ML INJ IVP SCH ×2 (02:15→03:37)
[2017-07-17] MEDS ORDERED: POTASSIUM Cl (KCl) 10 MEQ in D5W 50 ML IV SCH (02:30)
[2017-07-17] MEDS ORDERED: POTASSIUM Cl (KCl) 10 MEQ in D5W 50 ML IV ONE (02:30)
[2017-07-17] MEDS: AMPICILLIN/SULBACTAM 3 GM in STERILE WATER INJ 8 ML IV SCH ×5 (02:51→23:48)
[2017-07-17] MEDS ORDERED: POTASSIUM Cl (KCl) 100 ML IV ONE (03:00)
[2017-07-17] MEDS: PROPOFOL/EMULSION 100 ML IV SCH ×4 (03:42→20:06)
[2017-07-17 06:02] LABS: PLATELET COUNT 280 10^3/uL (150-400)
[2017-07-17] MEDS ORDERED: POTASSIUM Cl (KCl) 50 ML IV ONE (06:43)
[2017-07-17] MEDS: NICOTINE 21 MG/24 HR PATCH TD SCH (08:40)
[2017-07-17] MEDS: CHLORHEXIDINE GLUCONATE 15 ML UDL PO SCH ×2 (08:40→20:02)
[2017-07-17] MEDS: ENOXAPARIN 40 MG/0.4 ML SYR SC SCH (08:40)
[2017-07-17] MEDS: FAMOTIDINE 20 MG/NACL 50 ML IV SCH ×2 (08:40→20:02)
[2017-07-17] MEDS: NYSTATIN 15 GM OINTMENT TP SCH ×2 (08:41→20:04)
--- NOTE | 2017-07-17 09:30 | PCMIDPN ---
Assessment/Plan: # Sepsis due to Aspiration PNA, intubated for airway protection yesterday. Currently on Unasyn for aspiration PNA. --no abx changes at this point # possible Seizure-like activity discussed w hospitalist, possible neuro consult # Fever, Ddx EtOH w/d, drug fever, worsening PNA. CXR reviewed from yesterday showing B-LL infiltrates --check LFTs --monitor cultures including blood from 07/15 and BAL # Genital rash: resolved, thought to be bacterial in nature. STD testing normal , including HIV. meds unasyn 3gm IV q6 #5 micro 07/11 blood cx (2) NGTD 07/15 blood cx (2) NGTD 07/16 BAL gram stain neg Subjective: intubated yesterday for airway protection and underwent BAL focal seizure noted and CT performed and was negative PICC placed yesterday Objective: Vital Signs Temp Pulse Resp BP Pulse Ox 36.5 C 86 21 H 122/86 H 100 07/17/17 03:00 07/17/17 08:00 07/17/17 08:00 07/17/17 08:00 07/17/17 08:00 Microbiology 07/11/17 21:50 Blood Culture - Final Blood 07/11/17 21:50 Blood Culture - Final Blood 07/16/17 11:05 Gram Stain - Final Lung Left Lobe - Bronchial Washings Laboratory Results 07/17/17 05:50 07/17/17 05:50 07/16/17 07/17/17 07/18/17 05:59 05:59 05:59 Intake Total 2446.9 2155 Output Total 870 2270 Balance 1576.9 -115 ESR 54 MM/HR (0-20) H 07/12/17 13:15 C-Reactive Protein 235.7 mg/L (<10.0) H 07/12/17 13:15 - Physical Exam General Appearance: other (sedated) EENT: pale conjunctiva, ET Tube, NG Tube, other (upward gaze) Respiratory: coarse breath sounds Cardiac/Chest: regular rate, rhythm Extremities: pedal edema (trace), swelling (mild R forearm) Abdomen: normal bowel sounds, non-tender, soft Male Genitalia: carvalho, No scrotal edema Skin: rash (scaly plaques scattered c/w psoriasis) Neuro/Psych: other (upward gaze, not following commands ) - Line/s RUE PICC Lines: No drainage, No erythema - Time Spent With Patient Time Spent with Patient: greater than 35 minutes (Care coordinated with Dr. Ordonez) Time Spent with Patient: Greater than 35 minutes spent on this patients care, greater than 50% of time spent counseling, educating, and coordinating care regarding the above mentioned plan. ICD10 Worksheet Patient Problems: Problems Problem Status Onset Alcoholic intoxication Acute Elevated troponin Acute Scrotal infection Acute
[2017-07-17] MEDS: THIAMINE HCL 100 MG TAB TUBE SCH (09:45)
[2017-07-17] MEDS: METOPROLOL TARTRATE 50 MG TAB TUBE SCH ×2 (09:46→20:02)
[2017-07-17] MEDS: RANITIDINE HCL 150 MG/10 ML UDCUP TUBE SCH (10:04)
[2017-07-17] MEDS ORDERED: FUROSEMIDE 40 MG/4 ML VIAL IVP ONE (10:08)
--- NOTE | 2017-07-17 10:32 | HOSPPROG ---
Hospitalist Progress Note Assessment/Plan: # acute encephalopathy - etOH w/d and pna - there was concern for seizure activity - will ask for neuro consult to eval ; planning EEG today # bilat aspiration pna - cont unasyn; fevers yesterday possibly attributed to ongoing aspiration vs etOH withdrawal - recheck pct today # acute hypoxic resp failure - d/t pna - bronch yesterday with L main mucous which was cleared - intubated for airway protection # vol overload - lasix today, replace lytes - decreased UOP today - recheck BMP after lasix # etOH abuse and w/d - cont CIWA; back on precedex today - thiamine # dorsum of hand rash - 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; other serologies negative - would consider biopsy # genital lesions, bacterial per ID # abnormal ECG s/p negative cath # htn - holding meds # ppx - lovenox, pepcid 35 minutes of floor critical care time managing resp failure, acute encephalopathy Subjective: intubated; opens eyes to voice; on propofol Objective: Vital Signs Temp Pulse Resp BP Pulse Ox 37.4 C 101 H 20 101/71 100 07/17/17 09:55 07/17/17 09:55 07/17/17 09:55 07/17/17 09:55 07/17/17 09:55 Microbiology 07/11/17 21:50 Blood Culture - Final Blood 07/11/17 21:50 Blood Culture - Final Blood 07/16/17 11:05 Gram Stain - Final Lung Left Lobe - Bronchial Washings Laboratory Results 07/17/17 05:50 07/17/17 05:50 07/16/17 07/17/17 07/18/17 05:59 05:59 05:59 Intake Total 2446.9 2155 Output Total 870 2270 Balance 1576.9 -115 PT 13.8 SEC (12.0-15.0) 07/11/17 19:25 INR 1.04 (0.83-1.16) 07/11/17 19:25 - Physical Exam Constitutional: chronically ill appearing, unkempt Cardiovascular: regular rate and rhythym, no murmur, rub, or gallop Respiratory: no respiratory distress, other (ET tube) Gastrointestinal: soft, non-tender abdomen, no palpable masses Skin: other (papular rash most prominent on dorsum of hands) ICD10 Worksheet Patient Problems: Problems Problem Status Onset Alcoholic intoxication Acute Scrotal infection Acute Elevated troponin Acute
--- NOTE | 2017-07-17 11:19 | GCON ---
[f rep st] CONSULTATION NEUROLOGY CONSULT REFERRING PHYSICIAN: Edy Ordonez MD CHIEF COMPLAINT: Question seizure. HISTORY OF PRESENT ILLNESS: The patient is a 57-year-old gentleman who was initially found down on July 11, 2017, by roommates and was brought in with significant alcohol intoxication. EMS found him sitting in his own urine and feces on a sofa. He had an unknown rash, known alcoholism, and multiple other medical comorbidities. He was admitted and found ultimately to have significant chest infection, which is being treated. Due to his mental status from the infection and alcohol withdrawal, he was ultimately intubated. Yesterday apparently in the afternoon, he had some brief jerking movements of his right shoulder for 2 minutes or less. There were no other associated symptoms. The question of seizure in the setting of alcohol withdrawal was raised. We were consulted to evaluate and examine the patient. head CT done today on July 17, which shows mild atrophy without any acute changes. PAST MEDICAL/SOCIAL /FAMILY HISTORY/ALLERGIES/HOME MEDICATIONS: Please see the history and physical by Dr. Tobar on 07/11/2017. PHYSICAL EXAMINATION: VITAL SIGNS: Blood pressure is 122/86, respiration is intubated, breathing at 21 times per minute, his temperature is 37.4. NEUROLOGIC: The patient was on propofol when I walked in and we shut off the sedation immediately prior to my exam. There was no convulsive or subtle convulsive movements anywhere in his extremities or face. No facial myoclonus. When I retracted his eyelids initially, his eyes were midline. Pupils were 2- 3 mm and reactive bilaterally. He then had some right gaze deviation, which was sustained for 2 or 3 minutes. Then, I retracted his eyelid again, and he had conjugate gaze deviation to the left. There were no other lateralizing or focal findings on exam. No increased tone or subtle convulsive activity is noted above. IMPRESSION/PLAN: 1. Encephalopathy. 2. Alcoholism. 3. Infection. The patient certainly may have had a focal seizure in the setting of alcohol withdrawal yesterday. On exam now, the only focal finding is conjugate eye gaze deviation initially to the right and then to the left. The fact that it is changed directions is reassuring as that would be unusual to be epileptic in nature. In any case, we will obtain an inpatient EEG to exclude ongoing seizure activity. We will follow up after the EEG. Make further recommendations as indicated. Thank you for this consultation. fifty total minutes on floor, reviewing extensive inpatient records, imaging, including a head CT done today on July 17, which shows mild atrophy without any acute changes. /[id number]/MODL MTDD
[2017-07-17] MEDS ORDERED: POTASSIUM Cl (KCl) 50 ML IV SCH ×2 (13:17→20:48)
--- NOTE | 2017-07-17 14:34 | PDINTPN ---
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 Treated with Unasyn with thorough ID evaluation- recently seen at [facility] with scrotal/penile lesions and extensive negative w/u. Also with pustiular rash on bilateral hands. * Acute respiratory failure with hypoxia- his ability to protect his airway in the setting of severe pneumonia has been waning and subsequently required urgent /emergent intubation on 07/16/17. Large mucous plug removed from left main stem and sent to lab for micro. HD# 7, vent day#2 * PNA- presumed aspiration. Remains on Unasyn; appreciate ID help. His etoh wd may have be a barrier to adequate secretion management, hence his intubation. No abx change per ID * ?Seizure- stat non-contrast head CT this am unremarkable. Neuro consult pending; though if seizure probable etoh related even though he has been on CIWA for several days * MS change- related to etoh intoxication * etoh w/d- was on CIWA, but precedex was inadequate to maintain vent so changed to propofol alone. * rash- anticipate biopsy soon. Not porphyria with undetectable porphyrins * discussed in detail with multiple providers * * critical care time 45 minutes separate from procedures Subjective: Intubated yesterday. Rn reported tremor in RUE. Objective: Vital Signs Temp Pulse Resp BP Pulse Ox 37.7 C 85 21 H 91/63 L 100 07/17/17 12:00 07/17/17 12:00 07/17/17 12:00 07/17/17 12:00 07/17/17 12:00 Microbiology 07/16/17 11:05 Gram Stain - Final Lung Left Lobe - Bronchial Washings 07/11/17 21:50 Blood Culture - Final Blood 07/11/17 21:50 Blood Culture - Final Blood Laboratory Results 07/17/17 05:50 07/17/17 12:20 07/16/17 07/17/17 07/18/17 05:59 05:59 05:59 Intake Total 2446.9 2155 Output Total 870 2270 525 Balance 1576.9 -115 -525 PT 13.8 SEC (12.0-15.0) 07/11/17 19:25 INR 1.04 (0.83-1.16) 07/11/17 19:25 Physical Exam - Physical Exam General Appearance: no apparent distress, other (sedated on vent) EENT: ET tube, other (unable to see tongue. Eyes with equal rightward gaze) Neck: supple Respiratory: decreased breath sounds, No respiratory distress, No accessory muscle use, No wheezing Cardiac/Chest: regular rate, rhythm, No edema Abdomen: non-tender, soft, No organomegaly, No distended Skin: normal color, warm/dry, rash, No cyanosis Lymphatic: no adenopathy Extremities: No pedal edema Neuro/Psych: cognition abnormalities ICD10 Worksheet Patient Problems: Problems Problem Status Onset Alcoholic intoxication Acute Elevated troponin Acute Scrotal infection Acute
[2017-07-17] MEDS: POTASSIUM Cl (KCl) 10 MEQ in NS 50 ML IV SCH ×3 (14:58→16:49)
[2017-07-17] MEDS: D5W 1,000 ML IV SCH (15:45)
--- NOTE | 2017-07-17 16:05 | CPEEG ---
[f rep st] ELECTROENCEPHALOGRAM ELECTROENCEPHALOGRAM DATE OF STUDY: 07/17/2017 INTERPRETATION: This EEG contains a mild degree of diffuse nonspecific slowing. These findings are consistent with a mild diffuse disturbance of cerebral function and/or medication effect. There were no potentially epileptogenic abnormalities or electrographic seizure discharges present during the awake and sleep recording. REPORT: This EEG contains 8-9 Hz alpha to the posterior head regions. There was a mild degree of diffuse theta slowing present. The patient had copious persistent myogenic artifact in the frontal leads intermittently throughout the recording. The patient intermittently fell into light sleep during the study. There were no potentially epileptogenic abnormalities or electrographic seizures recorded during the recording period. /[id number]/MODL MTDD
--- NOTE | 2017-07-17 16:35 | NEUROPROG ---
Assessment: 1. Encephalopathy 2. Alcoholism 3. Infection EEG note: The patient's EEG showed some minimal diffuse slowing without any epileptogenic abnormalities or electrographic seizure discharges. He has had no further clinical events. He certainly may have had a brief seizure in the setting of alcohol withdrawal. Currently, there is no electrographic evidence of ongoing nonconvulsive seizures. I have discussed this with the metal loader, Dr. Leonard. As he is 7 days into hospitalization, I think we can continue to observe him from here. No anticonvulsants need to be added at this time. Certainly IV benzodiazepines can be used p.r.n. for seizures. Continued observation for any withdrawal symptoms and slow taper off any sedatives, such as propofol, when no longer needed. No further recommendations now. We will continue to follow up p.r.n. Please do not hesitate to call with any questions or changes in neurologic status with this patient. Objective: Vital Signs Temp Pulse Resp BP Pulse Ox 37.6 C 95 16 113/81 H 100 07/17/17 16:00 07/17/17 16:06 07/17/17 16:06 07/17/17 16:00 07/17/17 16:06 Microbiology 07/16/17 11:05 Gram Stain - Final Lung Left Lobe - Bronchial Washings 07/11/17 21:50 Blood Culture - Final Blood 07/11/17 21:50 Blood Culture - Final Blood Laboratory Results 07/17/17 05:50 07/17/17 12:20 07/16/17 07/17/17 07/18/17 05:59 05:59 05:59 Intake Total 2446.9 2155 Output Total 870 2270 525 Balance 1576.9 -115 -525 PT 13.8 SEC (12.0-15.0) 07/11/17 19:25 INR 1.04 (0.83-1.16) 07/11/17 19:25 Allergies/Adverse Reactions: seasonal Allergy (Mild, Uncoded 07/11/17 15:48)
--- NOTE | 2017-07-17 19:45 | WOCRNPDOC ---
WOCRN Advanced Assessment Note - Skin Integrity Problem, Advanced Assess Left Ankle Unknown Dressing Type: Open to Air Julissa Wound Tissue: Blanching Julissa Wound Swelling: None Wound Bed Color: Brown Skin Integrity Problem Comment: Patient's heel boots removed. Patient with darkened area distal to lateral malleolus. Given the anatomy and the depression in this area, although the area is somewhat darkened, I don't feel that this is a pressure related injury. Wound care will not continue to follow this wound. Please reconsult PRN. Right Heel Unknown Dressing Type: Open to Air Julissa Wound Tissue: Blanching Wound Bed Color: Brown Skin Integrity Problem Comment: Patient's heel boots removed. Patient with a blanching, darkened area on the heel. The area resembles lesions scattered throughout patient's skin, including throughout lower extremeties and feet. Recommend continuing use of the offloading heel boots. Wound care will not continue to follow. Please reconsult PRN.
[2017-07-17] MEDS: POTASSIUM Cl (KCl) 10 MEQ in D5W 50 ML IV SCH ×3 (21:29→23:43)
[2017-07-18] MEDS: PROPOFOL/EMULSION 100 ML IV SCH ×3 (05:05→22:13)
[2017-07-18] MEDS: AMPICILLIN/SULBACTAM 3 GM in STERILE WATER INJ 8 ML IV SCH ×3 (05:06→17:40)
[2017-07-18 05:19] LABS: PLATELET COUNT 440 10^3/uL (150-400)
[2017-07-18] MEDS ORDERED: POTASSIUM Cl (KCl) 50 ML IV SCH (06:00)
[2017-07-18] MEDS ORDERED: POTASSIUM Cl (KCl) 100 ML IV ONE (06:00)
[2017-07-18] MEDS ORDERED: POTASSIUM Cl (KCl) 10 MEQ in D5W 50 ML IV ONE ×2 (06:00→07:00)
[2017-07-18] MEDS: D5W 1,000 ML IV SCH (06:07)
[2017-07-18] MEDS: FAMOTIDINE 20 MG/NACL 50 ML IV SCH ×2 (09:31→22:11)
[2017-07-18] MEDS: ENOXAPARIN 40 MG/0.4 ML SYR SC SCH (09:31)
[2017-07-18] MEDS: THIAMINE HCL 100 MG TAB TUBE SCH (09:32)
[2017-07-18] MEDS: METOPROLOL TARTRATE 50 MG TAB TUBE SCH ×3 (09:32→22:10)
[2017-07-18] MEDS: NICOTINE 21 MG/24 HR PATCH TD SCH (09:32)
[2017-07-18] MEDS: CHLORHEXIDINE GLUCONATE 15 ML UDL PO SCH ×2 (09:32→22:11)
[2017-07-18] MEDS: NYSTATIN 15 GM OINTMENT TP SCH ×2 (09:33→22:11)
--- NOTE | 2017-07-18 09:55 | HOSPPROG ---
Hospitalist Progress Note Assessment/Plan: # acute encephalopathy - etOH w/d and pna - no seizures on EEG - appreciate neuro eval # bilat aspiration pna - cont unasyn; fevers yesterday possibly attributed to ongoing aspiration vs etOH withdrawal - Stenotrophomonas in bronch cx - unclear if colonizer vs infectious # acute hypoxic resp failure - d/t pna - s/p bronc 07/17 - intubated for airway protection # vol overload - will hold on lasix today # etOH abuse and w/d - cont CIWA; back on precedex today - thiamine # dorsum of hand rash - porphyrins negative - psoriasis? # genital lesions, bacterial per ID # abnormal ECG s/p negative cath # htn - holding meds # ppx - lovenox, pepcid Subjective: awakes to voice Objective: Vital Signs Temp Pulse Resp BP Pulse Ox 37.3 C 98 18 103/69 100 07/18/17 09:15 07/18/17 09:34 07/18/17 09:15 07/18/17 09:34 07/18/17 09:15 Microbiology 07/16/17 11:05 Gram Stain - Final Lung Left Lobe - Bronchial Washings 07/11/17 21:50 Blood Culture - Final Blood 07/11/17 21:50 Blood Culture - Final Blood Laboratory Results 07/18/17 05:05 07/18/17 05:05 07/17/17 07/18/17 07/19/17 05:59 05:59 05:59 Intake Total 2155 2737 Output Total 2270 900 100 Balance -115 1837 -100 PT 13.8 SEC (12.0-15.0) 07/11/17 19:25 INR 1.04 (0.83-1.16) 07/11/17 19:25 patient critically ill with resp failure and encephalopathy - 40 mins CC time spent - Physical Exam Constitutional: chronically ill appearing, unkempt Cardiovascular: regular rate and rhythym, no murmur, rub, or gallop Respiratory: other (coarse BS, ET tube) Gastrointestinal: soft, non-tender abdomen, no palpable masses ICD10 Worksheet Patient Problems: Problems Problem Status Onset Alcoholic intoxication Acute Scrotal infection Acute Elevated troponin Acute
[2017-07-18] MEDS ORDERED: ONDANSETRON DISINTEGRATING 4 MG TAB TUBE PRN (11:00)
[2017-07-18] MEDS ORDERED: oxyCODONE IR 5 MG TAB TUBE PRN (11:00)
--- NOTE | 2017-07-18 14:20 | PDINTPN ---
Cvt Rn Progress Note Assessment/Plan: Assessment/plan: 57 M with hx etoh found by roommates sitting in his own feces and intoxicated, admitted 07/11/17 with aspiration PNA. Treated with Unasyn with thorough ID evaluation- recently seen at [facility] with scrotal/penile lesions and extensive negative w/u. Also with pustiular rash on bilateral hands. * Acute respiratory failure with hypoxia- his ability to protect his airway in the setting of severe pneumonia required urgent/emergent intubation on 07/16/17. Large mucous plug removed from left main stem and sent to lab for micro. HD# 8, vent day#3. Trials of weaning unsuccessful today in <10 minutes. Retry tomorrow, continue support * PNA- presumed aspiration. Remains on Unasyn; appreciate ID help. S. Maltophilia grew from BAL, but I suspect colonization since all parameters point to improvement without adding Bactrim. His etoh wd may have be a barrier to adequate secretion management, hence his intubation. * ?Seizure- stat non-contrast head CT 07/17/17 unremarkable. Neuro consult said no seizure likely, no anti-epileptics. * MS change- related to etoh intoxication * etoh w/d- was on CIWA, but precedex was inadequate to maintain vent so changed to propofol alone. * rash- anticipate biopsy soon. Not porphyria with undetectable porphyrins * discussed in detail with multiple providers * * critical care time 45 minutes separate from procedures 07/18/17 14:18 Subjective: no events. easily aroused on light sedation Objective: Vital Signs Temp Pulse Resp BP Pulse Ox 38.0 C 98 25 H 109/78 100 07/18/17 14:00 07/18/17 14:00 07/18/17 14:00 07/18/17 14:00 07/18/17 14:00 Microbiology 07/16/17 11:05 Gram Stain - Final Lung Left Lobe - Bronchial Washings 07/11/17 21:50 Blood Culture - Final Blood 07/11/17 21:50 Blood Culture - Final Blood Laboratory Results 07/18/17 05:05 07/18/17 11:50 07/17/17 07/18/17 07/19/17 05:59 05:59 05:59 Intake Total 2155 2737 Output Total 2270 900 250 Balance -115 1837 -250 PT 13.8 SEC (12.0-15.0) 07/11/17 19:25 INR 1.04 (0.83-1.16) 07/11/17 19:25 Physical Exam - Physical Exam General Appearance: no apparent distress, obtunded EENT: PERRL/EOMI, ET tube Neck: supple Respiratory: lungs clear, decreased breath sounds, No respiratory distress, No accessory muscle use Cardiac/Chest: regular rate, rhythm, No edema Abdomen: non-tender, soft, No distended Skin: normal color, warm/dry, rash, No cyanosis Lymphatic: no adenopathy Extremities: No pedal edema Neuro/Psych: cognition abnormalities ICD10 Worksheet Patient Problems: Problems Problem Status Onset Alcoholic intoxication Acute Elevated troponin Acute Scrotal infection Acute
[2017-07-18] MEDS ORDERED: LACTULOSE 20 GM/30 ML UDCUP PO PRN (15:14)
[2017-07-18] MEDS ORDERED: BISACODYL 10 MG SUPP PR PRN (15:14)
[2017-07-18] MEDS ORDERED: MAGNESIUM HYDROXIDE 30 ML UDCUP PO PRN (15:14)
[2017-07-18] MEDS ORDERED: POLYETHYLENE GLYCOL 3350 17 GM PKT PO PRN (15:14)
[2017-07-18] MEDS ORDERED: POLYETHYLENE GLYCOL 3350 17 GM PKT TUBE PRN (15:30)
[2017-07-18] MEDS ORDERED: MAGNESIUM HYDROXIDE 30 ML UDCUP TUBE PRN (15:30)
[2017-07-18] MEDS ORDERED: LACTULOSE 20 GM/30 ML UDCUP TUBE PRN (15:30)
[2017-07-18] MEDS: SENNOSIDES 17.6 MG/10 ML UDL TUBE SCH ×2 (16:04→22:10)
--- NOTE | 2017-07-18 16:18 | ASMTCMCOM ---
CM Note CM Note Notes: Patient is intubated and sedated so unable to talk to patient about family, friends and/or contacts. The only phone number listed is patient's cell phone. CM will follow. Date Signed: 07/18/2017 04:17 PM Electronically Signed By:Suzanna Romero LCSW
--- NOTE | 2017-07-18 16:38 | PCMIDPN ---
Assessment/Plan: Assessment: Patient remains intubated with intermittent fevers. Chest x-ray actually appears to be a bit improved. He remains on Unasyn monotherapy. Plan: 1. Continue IV Unasyn. 2. follow clinical improvement. Subjective: Patient remains intubated and sedated. Mild tachycardia. Continued intermittent fevers. Objective: Unasyn # 6 Vital Signs Temp Pulse Resp BP Pulse Ox 37.8 C 99 21 H 113/78 100 07/18/17 16:00 07/18/17 16:00 07/18/17 16:00 07/18/17 16:00 07/18/17 16:00 Microbiology 07/16/17 11:05 Gram Stain - Final Lung Left Lobe - Bronchial Washings Laboratory Results 07/18/17 05:05 07/18/17 11:50 07/17/17 07/18/17 07/19/17 05:59 05:59 05:59 Intake Total 2155 2737 7.7 Output Total 2270 900 250 Balance -115 1837 -242.3 ESR 54 MM/HR (0-20) H 07/12/17 13:15 C-Reactive Protein 235.7 mg/L (<10.0) H 07/12/17 13:15 - Physical Exam General Appearance: WD/WN, no apparent distress Respiratory: coarse breath sounds, No lungs clear Cardiac/Chest: regular rate, rhythm, tachycardia Skin: normal color, warm/dry, rash ICD10 Worksheet Patient Problems: Problems Problem Status Onset Alcoholic intoxication Acute Elevated troponin Acute Scrotal infection Acute
[2017-07-18] MEDS ORDERED: POTASSIUM Cl (KCl) 50 ML IV ONE (18:19)
[2017-07-18] MEDS ORDERED: SENNOSIDES/DOCUSATE SODIUM TAB PO SCH (21:00)
[2017-07-18] MEDS: ACETAMINOPHEN 650 MG/20.3 ML UDCUP TUBE PRN (22:09)
[2017-07-19] MEDS: AMPICILLIN/SULBACTAM 3 GM in STERILE WATER INJ 8 ML IV SCH ×4 (01:08→18:03)
[2017-07-19] MEDS ORDERED: POTASSIUM Cl (KCl) 50 ML IV ONE (02:27)
[2017-07-19 06:00] LABS: PLATELET COUNT 592 10^3/uL (150-400)
[2017-07-19] MEDS: PROPOFOL/EMULSION 100 ML IV SCH ×2 (06:18→17:07)
--- NOTE | 2017-07-19 09:13 | PDINTPN ---
Informatica Developer Progress Note Assessment/Plan: Assessment: 57 M with hx etoh found by roommates sitting in his own feces and intoxicated, admitted 07/11/17 with aspiration PNA. Treated with Unasyn with thorough ID evaluation- recently seen at [facility] with scrotal/penile lesions and extensive negative w/u. Also with pustular rash on bilateral hands. * Acute respiratory failure with hypoxia- his ability to protect his airway in the setting of severe pneumonia required urgent/emergent intubation on 07/16/17. Large mucous plug removed from left main stem and sent to lab for micro. Trials of weaning unsuccessful yesterday in <10 minutes. Currently VE 8.5 , on 40% oxygen, sats 100%. Moderate-large amount of thick secretions * PNA- presumed aspiration. Remains on Unasyn, Day #8; appreciate ID help. S. Maltophilia grew from BAL, but I suspect colonization since all parameters point to improvement without adding Bactrim. His etoh wd may have be a barrier to adequate secretion management, hence his intubation. * ?Seizure- stat non-contrast head CT 07/17/17 unremarkable. Neuro consult said no seizure likely, no anti-epileptics. * MS change- related to etoh intoxication * etoh w/d- was on CIWA, but Precedex was inadequate to maintain vent so changed to propofol alone. Day # 8 hospitalization, so should be becoming less of an issue. * rash- anticipate biopsy soon. Not porphyria with undetectable porphyrins * Nutrition: At goal on TF * discussed in detail with multiple providers Plan: Decrease FiO2 and sedation. Possible extubation today. Repeat CXR. 07/19/17 09:29 Subjective: Intubated, sedated. Objective: Vital Signs Temp Pulse Resp BP Pulse Ox 36.6 C 94 14 113/79 100 07/19/17 08:00 07/19/17 08:00 07/19/17 08:00 07/19/17 08:00 07/19/17 08:00 Microbiology 07/16/17 11:05 Gram Stain - Final Lung Left Lobe - Bronchial Washings Laboratory Results 07/19/17 05:50 07/19/17 05:50 07/18/17 07/19/17 07/20/17 05:59 05:59 05:59 Intake Total 2737 2063.7 Output Total 900 825 Balance 1837 1238.7 PT 13.8 SEC (12.0-15.0) 07/11/17 19:25 INR 1.04 (0.83-1.16) 07/11/17 19:25 Physical Exam - Physical Exam General Appearance: no apparent distress, No alert EENT: normal ENT inspection Neck: normal inspection Respiratory: lungs clear, normal breath sounds Cardiac/Chest: regular rate, rhythm, edema (trace) Abdomen: normal bowel sounds, non-tender Skin: normal color, warm/dry, rash (papular) Extremities: normal inspection Neuro/Psych: No alert, No oriented x 3, No motor weakness ICD10 Worksheet Patient Problems: Problems Problem Status Onset Alcoholic intoxication Acute Elevated troponin Acute Scrotal infection Acute
[2017-07-19] MEDS: NICOTINE 21 MG/24 HR PATCH TD SCH (09:26)
[2017-07-19] MEDS: FAMOTIDINE 20 MG/NACL 50 ML IV SCH ×2 (09:26→21:05)
[2017-07-19] MEDS: THIAMINE HCL 100 MG TAB TUBE SCH (09:26)
[2017-07-19] MEDS: CHLORHEXIDINE GLUCONATE 15 ML UDL PO SCH ×2 (09:26→21:05)
[2017-07-19] MEDS: METOPROLOL TARTRATE 50 MG TAB TUBE SCH ×2 (09:26→21:06)
[2017-07-19] MEDS: ENOXAPARIN 40 MG/0.4 ML SYR SC SCH (09:26)
[2017-07-19] MEDS: SENNOSIDES 17.6 MG/10 ML UDL TUBE SCH ×2 (09:28→21:54)
[2017-07-19] MEDS: NYSTATIN 15 GM OINTMENT TP SCH ×2 (09:28→21:05)
[2017-07-19] MEDS ORDERED: FUROSEMIDE 20 MG/2 ML VIAL IVP ONE (10:39)
--- NOTE | 2017-07-19 11:01 | HOSPPROG ---
Hospitalist Progress Note Assessment/Plan: # acute encephalopathy - etOH w/d and pna - no seizures on EEG - appreciate neuro eval # bilat aspiration pna - cont unasyn; afebrile over 24 hours - Stenotrophomonas in bronch cx - suspect colonizer # acute hypoxic resp failure - d/t pna - s/p [facility] 07/17 - intubated for airway protection # vol overload - will hold on lasix today # etOH abuse and w/d - will follow closely when extubated; currently at least 8 days since etOH, doubt will be a significant issue # dorsum of hand rash - porphyrins negative - psoriasis? - may need biopsy # genital lesions, bacterial per ID # abnormal ECG s/p negative cath # htn - holding meds # ppx - lovenox, pepcid Subjective: no acute events overnight Objective: Vital Signs Temp Pulse Resp BP Pulse Ox 36.7 C 85 17 117/79 100 07/19/17 10:00 07/19/17 10:00 07/19/17 10:00 07/19/17 10:00 07/19/17 10:00 Microbiology 07/16/17 11:05 Gram Stain - Final Lung Left Lobe - Bronchial Washings Bronchial Washings Culture - Final Stenotrophomonas Maltophilia Laboratory Results 07/19/17 05:50 07/19/17 05:50 07/18/17 07/19/17 07/20/17 05:59 05:59 05:59 Intake Total 2737 2063.7 Output Total 900 825 Balance 1837 1238.7 PT 13.8 SEC (12.0-15.0) 07/11/17 19:25 INR 1.04 (0.83-1.16) 07/11/17 19:25 - Physical Exam Constitutional: unkempt, other (intubated, ETT in place) Cardiovascular: regular rate and rhythym, no murmur, rub, or gallop Respiratory: no respiratory distress, no rales or rhonchi Gastrointestinal: normoactive bowel sounds, soft, non-tender abdomen, no palpable masses Genitourinary: carvalho in urethra ICD10 Worksheet Patient Problems: Problems Problem Status Onset Alcoholic intoxication Acute Scrotal infection Acute Elevated troponin Acute
--- NOTE | 2017-07-19 16:25 | PCMIDPN ---
Assessment/Plan: Assessment: Patient remains intubated with intermittent fevers. Chest x-ray actually appears to be a bit improved. He remains on Unasyn monotherapy. Stenotrophomonas felt to be a respiratory colonizer. Ventilation parameters much better today. Patient appears to be much more comfortable. Plan: 1. Continue IV Unasyn. 2. follow clinical improvement. 07/19/17 16:22 Subjective: Patient remains on the ventilator. He is much more comfortable appearing. FiO2 down to 40%. Objective: Unasyn #7 Vital Signs Temp Pulse Resp BP Pulse Ox 37.3 C 94 29 H 128/97 H 100 07/19/17 14:00 07/19/17 15:46 07/19/17 15:46 07/19/17 14:00 07/19/17 15:46 Microbiology 07/16/17 11:05 Gram Stain - Final Lung Left Lobe - Bronchial Washings Bronchial Washings Culture - Final Stenotrophomonas Maltophilia Laboratory Results 07/19/17 05:50 07/19/17 12:45 07/18/17 07/19/17 07/20/17 05:59 05:59 05:59 Intake Total 2737 2063.7 Output Total 900 825 Balance 1837 1238.7 ESR 54 MM/HR (0-20) H 07/12/17 13:15 C-Reactive Protein 235.7 mg/L (<10.0) H 07/12/17 13:15 - Physical Exam General Appearance: WD/WN, no apparent distress, non-toxic, other ( intubated and sedated.) Respiratory: crackles, coarse breath sounds ( But improved), No lungs clear Cardiac/Chest: regular rate, rhythm, No tachycardia Extremities: non-tender, normal inspection Skin: normal color, warm/dry, rash ICD10 Worksheet Patient Problems: Problems Problem Status Onset Alcoholic intoxication Acute Elevated troponin Acute Scrotal infection Acute
[2017-07-19] MEDS: ACETAMINOPHEN 650 MG/20.3 ML UDCUP TUBE PRN (16:32)
--- NOTE | 2017-07-19 16:35 | ASMTCMCOM ---
CM Note CM Note Notes: Pt is still vented and sedated, receiving tube feeds. Pt's mother Karmen Mike [phone] called today. She lives in [place] and apparently no one knew where pt was and after not getting an answer at [facility], started calling hospitals. Pt also has a son and daughter in the area. Date Signed: 07/19/2017 04:34 PM Electronically Signed By:EMILIE Harrison
[2017-07-20] MEDS: AMPICILLIN/SULBACTAM 3 GM in STERILE WATER INJ 8 ML IV SCH ×4 (01:00→17:24)
[2017-07-20] MEDS ORDERED: POTASSIUM Cl (KCl) 50 ML IV ONE ×2 (03:01→13:26)
[2017-07-20 05:35] LABS: PLATELET COUNT 651 10^3/uL (150-400)
[2017-07-20] MEDS: PROPOFOL/EMULSION 100 ML IV SCH (08:06)
[2017-07-20] MEDS: CHLORHEXIDINE GLUCONATE 15 ML UDL PO SCH ×2 (08:21→19:30)
[2017-07-20] MEDS: METOPROLOL TARTRATE 50 MG TAB TUBE SCH ×2 (08:21→20:03)
[2017-07-20] MEDS: FAMOTIDINE 20 MG/NACL 50 ML IV SCH ×2 (08:21→19:30)
[2017-07-20] MEDS: ENOXAPARIN 40 MG/0.4 ML SYR SC SCH (08:21)
[2017-07-20] MEDS: THIAMINE HCL 100 MG TAB TUBE SCH (08:21)
[2017-07-20] MEDS: SENNOSIDES 17.6 MG/10 ML UDL TUBE SCH ×2 (08:22→20:03)
[2017-07-20] MEDS: NYSTATIN 15 GM OINTMENT TP SCH ×2 (08:22→21:41)
[2017-07-20] MEDS: NICOTINE 21 MG/24 HR PATCH TD SCH (08:33)
--- NOTE | 2017-07-20 09:01 | PDINTPN ---
Car Sealer Progress Note Assessment/Plan: Assessment: 57 M with hx etoh found by roommates sitting in his own feces and intoxicated, admitted 07/11/17 with aspiration PNA. Treated with Unasyn with thorough ID evaluation- recently seen at [facility] with scrotal/penile lesions and extensive negative w/u. Also with pustular rash on bilateral hands. * Acute respiratory failure with hypoxia- his ability to protect his airway in the setting of severe pneumonia required urgent/emergent intubation on 07/16/17. Large mucous plug removed from left main stem and sent to lab for micro. Trials of weaning unsuccessful yesterday in <10 minutes. Currently VE 9, on 40% oxygen, sats 100%. Decrease in amount of ETT secretions * PNA- presumed aspiration. Remains on Unasyn, Day #9; appreciate ID help. S. Maltophilia grew from BAL, but I suspect colonization since all parameters point to improvement without adding Bactrim. His EtOH wd may have been a barrier to adequate secretion management, hence his intubation. * ?Seizure- stat non-contrast head CT 07/17/17 unremarkable. Neuro consult said no seizure likely, no anti-epileptics. * MS change- related to EtOH intoxication. He's more alert today after brief hole of Precedex. * EtOH w/d- was on CIWA, but Precedex was inadequate to maintain vent so changed to propofol alone. Day # 10 hospitalization, so should be less of an issue. * rash- anticipate biopsy soon. Not porphyria with undetectable porphyrins * Nutrition: At goal on TF * Hypernatremia: Mild, stable * discussed in detail with multiple providers Plan: Decrease sedation. Possible extubation today. Complete course of Unasyn per ID. Follow CXR. 35 minutes CC time addressing respiratory failure and acute delirium, assessing for extubation potential, monitoring throughout extubation. 07/20/17 09:03 Subjective: More alert this AM, agitated, not reliably following commands. Objective: Vital Signs Temp Pulse Resp BP Pulse Ox 36.8 C 102 H 24 H 146/95 H 98 07/20/17 08:00 07/20/17 08:35 07/20/17 08:00 07/20/17 08:21 07/20/17 08:35 Microbiology 07/16/17 11:05 Gram Stain - Final Lung Left Lobe - Bronchial Washings Bronchial Washings Culture - Final Stenotrophomonas Maltophilia Laboratory Results 07/20/17 05:25 07/20/17 05:25 07/19/17 07/20/17 07/21/17 05:59 05:59 05:59 Intake Total 2063.7 2860 Output Total 825 1535 Balance 1238.7 1325 PT 13.8 SEC (12.0-15.0) 07/11/17 19:25 INR 1.04 (0.83-1.16) 07/11/17 19:25 CXR: Improved LLL pneumonia. Images reviewed by me. Physical Exam - Physical Exam General Appearance: alert, no apparent distress EENT: normal ENT inspection, ET tube Neck: normal inspection Respiratory: lungs clear Cardiac/Chest: regular rate, rhythm, No edema Abdomen: normal bowel sounds, non-tender Skin: normal color, warm/dry Extremities: normal inspection Neuro/Psych: alert, No motor weakness ICD10 Worksheet Patient Problems: Problems Problem Status Onset Alcoholic intoxication Acute Elevated troponin Acute Scrotal infection Acute
--- NOTE | 2017-07-20 11:35 | HOSPPROG ---
Hospitalist Progress Note Assessment/Plan: # acute encephalopathy - etOH w/d and pna - no seizures on EEG - appreciate neuro eval - still confused after extubation today; at risk for additional aspiration # bilat aspiration pna - cont unasyn; afebrile over 24 hours - Stenotrophomonas in bronch cx - suspect colonizer # acute hypoxic resp failure - d/t pna - s/p bronch 07/17 - intubated for airway protection, now extubated but at risk for re- intubation # vol overload - will hold on lasix today # etOH abuse and w/d - doubt w/d is a significant issue at 10 days # dorsum of hand rash - porphyrins negative - psoriasis? - may need biopsy # genital lesions, bacterial per ID # abnormal ECG s/p negative cath # htn - holding meds # ppx - lovenox, pepcid Subjective: extubated this morning after I examined him Objective: Vital Signs Temp Pulse Resp BP Pulse Ox 36.9 C 103 H 17 140/89 H 100 07/20/17 10:00 07/20/17 10:00 07/20/17 10:00 07/20/17 10:00 07/20/17 10:00 Microbiology 07/16/17 11:05 Gram Stain - Final Lung Left Lobe - Bronchial Washings Bronchial Washings Culture - Final Stenotrophomonas Maltophilia Laboratory Results 07/20/17 05:25 07/20/17 05:25 07/19/17 07/20/17 07/21/17 05:59 05:59 05:59 Intake Total 2063.7 2860 Output Total 825 1535 Balance 1238.7 1325 PT 13.8 SEC (12.0-15.0) 07/11/17 19:25 INR 1.04 (0.83-1.16) 07/11/17 19:[address] Vazquez and ICU team on rounds CXR personally reviewed - Physical Exam Constitutional: chronically ill appearing, unkempt, other (intubated, sedated) Cardiovascular: regular rate and rhythym, no murmur, rub, or gallop Respiratory: inspiratory crackles (bilat bases), other (ET tube), No expiratory wheeze, No rhonchi Gastrointestinal: soft, non-tender abdomen, no palpable masses Genitourinary: carvalho in urethra ICD10 Worksheet Patient Problems: Problems Problem Status Onset Alcoholic intoxication Acute Scrotal infection Acute Elevated troponin Acute
--- NOTE | 2017-07-20 14:49 | PCMIDPN ---
Assessment/Plan: Assessment: Patient is extubated today and seems to be improved. Continues Unasyn monotherapy. Stenotrophomonas felt to be a respiratory colonizer. Plan: 1. Continue IV Unasyn. 2. follow clinical improvement. 07/19/17 16:22 07/20/17 14:47 Subjective: Patient is attempting to mouth requests. He seems somewhat agitated. His voice is not strong since being extubated. No significant elevations of temperature over the last 24 hours. Objective: Unasyn # 8 Vital Signs Temp Pulse Resp BP Pulse Ox 37.4 C 103 H 22 H 125/85 H 100 07/20/17 14:00 07/20/17 14:00 07/20/17 14:00 07/20/17 14:00 07/20/17 14:00 Microbiology 07/16/17 11:05 Gram Stain - Final Lung Left Lobe - Bronchial Washings Bronchial Washings Culture - Final Stenotrophomonas Maltophilia Laboratory Results 07/20/17 05:25 07/20/17 12:50 07/19/17 07/20/17 07/21/17 05:59 05:59 05:59 Intake Total 2063.7 2860 Output Total 825 1535 Balance 1238.7 1325 ESR 54 MM/HR (0-20) H 07/12/17 13:15 C-Reactive Protein 235.7 mg/L (<10.0) H 07/12/17 13:15 - Physical Exam General Appearance: WD/WN, alert, no apparent distress, non-toxic Respiratory: lungs clear, normal breath sounds, No respiratory distress Cardiac/Chest: regular rate, rhythm, No tachycardia Skin: normal color, warm/dry, rash Neuro/Psych: alert ICD10 Worksheet Patient Problems: Problems Problem Status Onset Alcoholic intoxication Acute Elevated troponin Acute Scrotal infection Acute
[2017-07-20] MEDS: LORazepam 2 MG/ML INJ IVP SCH (19:30)
[2017-07-20] MEDS ORDERED: MELATONIN 3 MG TAB PO SCH (21:00)
[2017-07-20] MEDS ORDERED: fentaNYL 100 MCG/2 ML INJ IVP PRN (21:22)
[2017-07-20] MEDS: METOPROLOL TARTRATE 5 MG/5 ML INJ IV SCH (21:29)
[2017-07-20] MEDS: LORazepam 2 MG/ML INJ IVP PRN (21:36)
[2017-07-21] MEDS: LORazepam 2 MG/ML INJ IVP PRN ×3 (00:19→09:23)
[2017-07-21] MEDS: METOPROLOL TARTRATE 5 MG/5 ML INJ IV SCH ×4 (00:20→18:36)
[2017-07-21] MEDS: AMPICILLIN/SULBACTAM 3 GM in STERILE WATER INJ 8 ML IV SCH ×4 (00:20→18:35)
[2017-07-21 05:24] LABS: PLATELET COUNT 744 10^3/uL (150-400)
[2017-07-21] MEDS: FAMOTIDINE 20 MG/NACL 50 ML IV SCH ×2 (09:12→22:09)
[2017-07-21] MEDS: NICOTINE 21 MG/24 HR PATCH TD SCH (09:19)
[2017-07-21] MEDS: ENOXAPARIN 40 MG/0.4 ML SYR SC SCH (09:21)
[2017-07-21] MEDS: CHLORHEXIDINE GLUCONATE 15 ML UDL PO SCH (09:21)
[2017-07-21] MEDS: NYSTATIN 15 GM OINTMENT TP SCH ×2 (09:41→22:10)
[2017-07-21] MEDS ORDERED: NS 1,000 ML IV ONE (10:31)
[2017-07-21] MEDS ORDERED: POTASSIUM Cl (KCl) 20 MEQ in 1/2 NS 1,000 ML IV SCH (11:00)
[2017-07-21] MEDS: SENNOSIDES 17.6 MG/10 ML UDL TUBE SCH ×2 (11:39→20:25)
[2017-07-21] MEDS: THIAMINE HCL 100 MG TAB TUBE SCH (11:39)
[2017-07-21] MEDS: METOPROLOL TARTRATE 50 MG TAB TUBE SCH (11:39)
--- NOTE | 2017-07-21 13:44 | PDINTPN ---
Annual Greenhouse Manager Progress Note Assessment/Plan: Assessment: 57 M with hx etoh found by roommates sitting in his own feces and intoxicated, admitted 07/11/17 with aspiration PNA. Treated with Unasyn with thorough ID evaluation- recently seen at [facility] with scrotal/penile lesions and extensive negative w/u. Also with pustular rash on bilateral hands. * Acute respiratory failure with hypoxia- his ability to protect his airway in the setting of severe pneumonia required urgent/emergent intubation on 07/16/17. Large mucous plug removed from left main stem and sent to lab for micro. Extubated 07/20, on low-flow NC O2. * PNA- presumed aspiration. Remains on Unasyn, Day #10; appreciate ID help. S. Maltophilia grew from BAL, but I suspect colonization since all parameters point to improvement without adding Bactrim. His EtOH wd may have been a barrier to adequate secretion management, hence his intubation. * ?Seizure- stat non-contrast head CT 07/17/17 unremarkable. Neuro consult said no seizure likely, no anti-epileptics. * MS change- related to EtOH intoxication. He's more alert today after brief hole of Precedex. * EtOH w/d- was on CIWA, but Precedex was inadequate to maintain vent so changed to propofol alone. Day # 11 hospitalization, so should be less of an issue. * rash- anticipate biopsy soon. Not porphyria with undetectable porphyrins * Nutrition: TF stopped yesterday. NPO. Na up, unlikely to be able to take PO adequately, will start IVF. * Hypernatremia: Up a bit today, likely due to mild IV dehydration with NPO status. * discussed in detail with multiple providers Plan: Complete course of Unasyn per ID. Follow CXR. Give NS, start IVF. ST to follow, hopefully can start to swallow talk soon. Avoid sedatives, narcotics if possible. Keep active, engaged during the day. Transfer to SDU. 07/21/17 13:37 Subjective: C/O throat pain Objective: Vital Signs Temp Pulse Resp BP Pulse Ox 37.0 C 107 H 21 H 152/99 H 98 07/21/17 08:36 07/21/17 12:00 07/21/17 12:00 07/21/17 12:00 07/21/17 12:00 Microbiology 07/15/17 16:10 Blood Culture - Final Blood 07/15/17 16:00 Blood Culture - Final Blood Laboratory Results 07/21/17 05:00 07/21/17 05:00 07/20/17 07/21/17 07/22/17 05:59 05:59 05:59 Intake Total 2860 416 Output Total 1535 1450 Balance 1325 -1034 PT 13.8 SEC (12.0-15.0) 07/11/17 19:25 INR 1.04 (0.83-1.16) 07/11/17 19:25 Physical Exam - Physical Exam General Appearance: alert, no apparent distress EENT: normal ENT inspection Neck: normal inspection Respiratory: lungs clear, normal breath sounds Cardiac/Chest: regular rate, rhythm, No edema Abdomen: normal bowel sounds, non-tender Male Genitalia: other (improved skin maceration) Skin: normal color, warm/dry Extremities: normal inspection Neuro/Psych: alert, No oriented x 3, No motor weakness ICD10 Worksheet Patient Problems: Problems Problem Status Onset Alcoholic intoxication Acute Elevated troponin Acute Scrotal infection Acute
--- NOTE | 2017-07-21 15:20 | HOSPPROG ---
Hospitalist Progress Note Assessment/Plan: # acute encephalopathy - multifactorial 2/2 etOH w/d and pna- appears to be improving daily - no seizures on EEG - appreciate neuro eval - improved after extubation -continue aggressive monitoring and supportive care - speech therapy eval today # Aspiration pna - CXR (personally reviewed and interpreted) bilateral infiltrates- oxygen saturations 98% on 3 L Stenotrophomonas in bronch cx - cont unasyn per ID # acute hypoxic resp failure 2/2 pna- telemetry (personally reviewed and interpreted) sinus tachycardia in the low 100s - continue care as outlined above # acute hypernatremia- sodium 150 this a.m.- starting hypotonic fluids today to reverse No significant p.o. Intake secondary to mental status - recheck in a.m. # vol overload - received lasix previously- continue to hold # etOH abuse and w/d - doubt w/d as 10 days into hospitalization - continue thiamin # dorsum of hand rash - porphyrins negative - psoriasis? - may need biopsy # genital lesions, bacterial per ID # abnormal ECG s/p negative cath # htn - IV metoprolol- can transition to p.o. Meds when tolerating p.o. # ppx - lovenox, pepcid # disposition greater than 2 midnights as remains encephalopathic requiring higher level of medical supporting care Discussed the case with Dr. Vazquez- optimistic patient will continue to improve daily status post extubation Subjective: No events overnight Objective: Vital Signs Temp Pulse Resp BP Pulse Ox 37 C 107 H 21 H 149/94 H 98 07/21/17 14:00 07/21/17 14:00 07/21/17 14:00 07/21/17 14:00 07/21/17 14:00 Microbiology 07/15/17 16:10 Blood Culture - Final Blood 07/15/17 16:00 Blood Culture - Final Blood Laboratory Results 07/21/17 05:00 07/21/17 13:25 07/20/17 07/21/17 07/22/17 05:59 05:59 05:59 Intake Total 2860 416 Output Total 1535 1450 Balance 1325 -1034 PT 13.8 SEC (12.0-15.0) 07/11/17 19:25 INR 1.04 (0.83-1.16) 07/11/17 19:25 - Physical Exam Constitutional: chronically ill appearing Eyes: anicteric sclera Ears, Nose, Mouth, Throat: dry mucous membranes Cardiovascular: regular rate and rhythym, tachycardia Respiratory: no respiratory distress Gastrointestinal: normoactive bowel sounds Genitourinary: no bladder fullness Skin: warm Musculoskeletal: No asymmetric calves Neurologic: No AAOx3 Psychiatric: encephalopathic Lymph, Heme, Immunologic: no cervical LAD ICD10 Worksheet Patient Problems: Problems Problem Status Onset Alcoholic intoxication Acute Elevated troponin Acute Scrotal infection Acute
--- NOTE | 2017-07-21 17:18 | ASMTCMCOM ---
CM Note CM Note Notes: Patient's son, Monty and daughter Livia are here from [place]. Met with Monty in a "Family Meeting", Hazardous Waste Material Technician and ALL SOURCE INTELLIGENCEsalesperson pianos and organs also present. Patient came to [place] for a job and was living with roommates. The job recently fell through. Monty reports that his father has had ETOH issues in the past but has never ended up ventilated. We talked about the need to learn what patient's ins might be. Monty to talk with his Dad to determine ins and/or if he receives benefits through the [facility]. Therapies are recommending SNF Rehab. When we know his payor source then we can talk about his options for rehab. Monty interested in his father getting ETOH rehab, but he knows that will be choice his father will have to make. Also talked about the patient naming a MPOA. Need to wait until patient clears cognitively. Patient also very close to his mother. Date Signed: 07/21/2017 05:17 PM Electronically Signed By:Enedina Sibley LCSW
--- NOTE | 2017-07-21 18:23 | PCMIDPN ---
Assessment/Plan: Assessment/Plan: * Multifocal pneumonia likely secondary to aspiration: Extubated with clinical improvement although has persistent weak cough. Completing course of Unasyn with plans for 10 days of therapy which will stop tomorrow. * Rash: Improved. May need dermatologic evaluation as outpatient if fails to resolve. * Fever: Resolve with treatment of pneumonia and alcohol withdrawal. * Thrombocytosis: Likely reactive secondary to above. Findings and plan discussed with patient and family today. 07/21/17 18:20 07/21/17 18:22 Subjective: Patient complains of wanting to go home. Now extubated. Objective: Vital Signs Temp Pulse Resp BP Pulse Ox 37 C 107 H 21 H 149/94 H 98 07/21/17 14:00 07/21/17 14:00 07/21/17 14:00 07/21/17 14:00 07/21/17 14:00 Microbiology 07/15/17 16:10 Blood Culture - Final Blood 07/15/17 16:00 Blood Culture - Final Blood Laboratory Results 07/21/17 05:00 07/21/17 13:25 07/20/17 07/21/17 07/22/17 05:59 05:59 05:59 Intake Total 2860 416 Output Total 1535 1450 Balance 1325 -1034 ESR 54 MM/HR (0-20) H 07/12/17 13:15 C-Reactive Protein 235.7 mg/L (<10.0) H 07/12/17 13:15 Unasyn # 9/10 - Physical Exam General Appearance: alert, non-toxic EENT: other (Weak voice), No scleral icterus Respiratory: coarse breath sounds, other (Weak cough) Cardiac/Chest: tachycardia Abdomen: non-tender, No distended Neuro/Psych: other (Follows commands) ICD10 Worksheet Patient Problems: Problems Problem Status Onset Alcoholic intoxication Acute Elevated troponin Acute Scrotal infection Acute
[2017-07-21] MEDS: MELATONIN 3 MG TAB TUBE SCH (20:25)
[2017-07-22] MEDS: AMPICILLIN/SULBACTAM 3 GM in STERILE WATER INJ 8 ML IV SCH ×4 (00:03→18:29)
[2017-07-22] MEDS: METOPROLOL TARTRATE 5 MG/5 ML INJ IV SCH ×4 (00:03→18:29)
[2017-07-22] MEDS: D5W 1/2 NS W/ 20 KCl/L 1,000 ML IV SCH ×2 (05:39→17:35)
[2017-07-22 05:55] LABS: PLATELET COUNT 918 10^3/uL (150-400)
[2017-07-22] MEDS: SENNOSIDES 17.6 MG/10 ML UDL TUBE SCH ×2 (10:28→19:13)
[2017-07-22] MEDS: THIAMINE HCL 100 MG TAB TUBE SCH (10:28)
[2017-07-22] MEDS: ENOXAPARIN 40 MG/0.4 ML SYR SC SCH (10:35)
[2017-07-22] MEDS: NICOTINE 21 MG/24 HR PATCH TD SCH (10:35)
[2017-07-22] MEDS: FAMOTIDINE 20 MG/NACL 50 ML IV SCH ×2 (10:36→20:59)
[2017-07-22] MEDS: NYSTATIN 15 GM OINTMENT TP SCH ×2 (10:36→20:59)
--- NOTE | 2017-07-22 16:10 | HOSPPROG ---
Hospitalist Progress Note Assessment/Plan: Called bedside for acute decompensation in patients respiratory status - markedly increased work of breathing and drop in oxygen saturations to 70's # acute hypoxic resp failure - acute decompensation possibly 2/2 recurrent aspiration, PE - mental status was the best this afternoon it had been telemetry (personally reviewed and interpreted) sinus tachycardia in the low 100s - transfer to ICU - stat CXR - STAT ABG - discuss case with pulmonary # acute encephalopathy - multifactorial 2/2 etOH w/d and pna- appears to be improving daily - no seizures on EEG - appreciate neuro eval - improved after extubation -continue aggressive monitoring and supportive care - speech therapy eval today # Aspiration pna - CXR (personally reviewed and interpreted) bilateral infiltrates- oxygen saturations 88% on 15L Stenotrophomonas in bronch cx - pulmonary to bronch - will likely broaden Abx # acute hypernatremia- sodium 151 this a.m.- continue hypotonic fluids to reverse No significant p.o. Intake secondary to mental status - recheck in a.m. # vol overload - received lasix previously-continue to monitor # etOH abuse and w/d - doubt w/d as 10 days into hospitalization - continue thiamin # dorsum of hand rash - porphyrins negative - psoriasis? - may need biopsy # genital lesions, bacterial per ID # abnormal ECG s/p negative cath # htn - IV metoprolol- can transition to p.o. Meds when tolerating p.o. # ppx - lovenox, pepcid # disposition greater than 2 midnights as remains encephalopathic requiring higher level of medical supporting care Discussed the case with Dr. Vazquez- he will eval for bronchoscopy and possible re -intubation I spent > 35 minutes crit care time transferring patient back to ICU Subjective: reports pain in chest Objective: Vital Signs Temp Pulse Resp BP Pulse Ox 36.7 C 109 H 20 169/122 H 94 07/22/17 12:00 07/22/17 12:00 07/22/17 12:00 07/22/17 12:00 07/22/17 12:00 Laboratory Results 07/22/17 05:30 07/22/17 05:30 07/21/17 07/22/17 07/23/17 05:59 05:59 05:59 Intake Total 416 1330 Output Total 1450 800 Balance -1034 530 PT 13.8 SEC (12.0-15.0) 07/11/17 19:25 INR 1.04 (0.83-1.16) 07/11/17 19:25 - Physical Exam Constitutional: chronically ill appearing Eyes: anicteric sclera Ears, Nose, Mouth, Throat: dry mucous membranes Cardiovascular: regular rate and rhythym, tachycardia Respiratory: respiratory distress Gastrointestinal: normoactive bowel sounds Genitourinary: no bladder fullness Skin: warm Musculoskeletal: No asymmetric calves Neurologic: No AAOx3 Psychiatric: encephalopathic Lymph, Heme, Immunologic: no cervical LAD ICD10 Worksheet Patient Problems: Problems Problem Status Onset Alcoholic intoxication Acute Elevated troponin Acute Scrotal infection Acute
[2017-07-22] MEDS ORDERED: LIDOCAINE 1% 300 MG/30 ML SDV MISC ONE (16:28)
[2017-07-22] MEDS ORDERED: LIDOCAINE 2% JELLY 5 ML TUBE TP ONE (16:28)
--- NOTE | 2017-07-22 17:02 | PDINTPN ---
Book Store Associate Progress Note Assessment/Plan: Assessment: 57 M with hx etoh found by roommates sitting in his own feces and intoxicated, admitted 07/11/17 with aspiration PNA. Treated with Unasyn with thorough ID evaluation- recently seen at [facility] with scrotal/penile lesions and extensive negative w/u. Also with pustular rash on bilateral hands. * Acute respiratory failure with hypoxia- his ability to protect his airway in the setting of severe pneumonia required urgent/emergent intubation on 07/16/17. Large mucous plug removed from left main stem and sent to lab for micro. Extubated 07/20, on low-flow NC O2. Increased O2 needs today. CXR, ECG stable. Retractions c/w mocous pluging. * PNA- presumed aspiration. Remains on Unasyn, Day #10, d/c'ing today; appreciate ID help. S. Maltophilia grew from BAL, but I suspect colonization since all parameters point to improvement without adding Bactrim. His EtOH wd may have been a barrier to adequate secretion management, hence his intubation. * ?Seizure- stat non-contrast head CT 07/17/17 unremarkable. Neuro consult said no seizure likely, no anti-epileptics. * MS change- related to EtOH intoxication. Now day 11, should be through withdrawal. Didn't sleep last night. * EtOH w/d- was on CIWA, but Precedex was inadequate to maintain vent so changed to propofol alone. Day # 11 hospitalization, so should be less of an issue. * rash- anticipate biopsy soon. Not porphyria with undetectable porphyrins * Nutrition: TF stopped yesterday. NPO. Na up, unlikely to be able to take PO adequately, will start IVF. * Hypernatremia: Up a bit today, likely due to mild IV dehydration with NPO status. * discussed in detail with multiple providers Plan: Bronch. Trial of Haldol at bedtime. D/W son and daughter. 07/22/17 17:04 Subjective: CTSP due to transfer back to ICU with fairly rapid increase in oxygen requirements. His O2 needs have increased and he's in moderate respiratory distress. Objective: Vital Signs Temp Pulse Resp BP Pulse Ox 37.3 C 100 29 H 159/102 H 94 07/22/17 16:00 07/22/17 16:00 07/22/17 16:00 07/22/17 16:00 07/22/17 16:00 Laboratory Results 07/22/17 05:30 07/22/17 05:30 07/21/17 07/22/17 07/23/17 05:59 05:59 05:59 Intake Total 416 1330 Output Total 1450 800 Balance -1034 530 PT 13.8 SEC (12.0-15.0) 07/11/17 19:25 INR 1.04 (0.83-1.16) 07/11/17 19:25 CXR: ? Increased right base infiltrate/loss of diaphragm. Images reviewed by me. Laboratory Tests 07/22/17 16:14 pCO2 46 H pO2 62 L Total CO2 28 H ABG pH 7.39 ABG HCO3 27 H Physical Exam - Physical Exam General Appearance: alert, moderate distress EENT: normal ENT inspection Neck: normal inspection Respiratory: rhonchi, retractions Cardiac/Chest: tachycardia, No edema Abdomen: normal bowel sounds, non-tender Skin: normal color, warm/dry Neuro/Psych: No alert, No motor weakness ICD10 Worksheet Patient Problems: Problems Problem Status Onset Alcoholic intoxication Acute Elevated troponin Acute Scrotal infection Acute
[2017-07-22] MEDS ORDERED: MIDAZOLAM 2 MG/2 ML VIAL IVP ONE ×2 (17:07→17:23)
[2017-07-22] MEDS: IPRATROPIUM/ALBUTEROL 3 ML DEYVIAL IH SCH (20:50)
[2017-07-22] MEDS: MELATONIN 3 MG TAB TUBE SCH (20:59)
[2017-07-22] MEDS: DEXMEDETOMIDINE IN 0.9 % NACL 50 ML IV SCH ×2 (22:18→23:45)
--- NOTE | 2017-07-22 22:42 | GPN ---
[f rep st] PROCEDURE NOTE DATE OF PROCEDURE: 07/22/2017 PROCEDURE: Flexible fiberoptic bronchoscopy. REASON FOR THE PROCEDURE: Acute hypoxemic respiratory failure, with probable retained secretions. PROCEDURE NOTE: The risks and benefits of the procedure were explained to the patient's son and daughter, who agreed to proceed. The entire procedure was performed in the intensive care unit with the patient under blood pressure, EKG and oximetry monitoring. It was my assessment that there was no risk of airborne infection from the procedure. After an appropriate time-out, the bronchoscope was advanced through a bite block and 2 cc of 1% lidocaine was instilled into the patient's posterior pharynx. There was a moderate amount of mucoid secretions throughout the posterior pharynx that were suctioned. I was then able to pass the bronchoscope through the vocal cords into the main trachea , where I encountered more mucoid secretions. These also had some purulence to them, and I had to remove the scope once in order to clear the channel. I was then able to reintroduce the scope and examined all airways bilaterally. I found a moderate amount of thin mucoid secretions scattered throughout. These were easily suctioned and there were no obvious occlusive plugs. Small volume lavages were performed of both lower lobes. All airways were clear of secretions at the end of the procedure. I suctioned secretions up through the trachea and then used the yankauer to clear secretions from the posterior pharynx at the end of the procedure. The patient tolerated the procedure well with saturations in the low 80s at the beginning of the procedure, in the high 90s at the end of the procedure. 1 mg of Versed was used. A specimen was sent for Gram stain and culture. /[id number]/MODL MTDD
[2017-07-23] MEDS: METOPROLOL TARTRATE 5 MG/5 ML INJ IV SCH ×4 (01:33→18:20)
[2017-07-23] MEDS: DEXMEDETOMIDINE IN 0.9 % NACL 50 ML IV SCH ×2 (03:47→08:13)
[2017-07-23] MEDS: D5W 1/2 NS W/ 20 KCl/L 1,000 ML IV SCH ×3 (03:47→15:59)
[2017-07-23] MEDS: IPRATROPIUM/ALBUTEROL 3 ML DEYVIAL IH SCH ×4 (05:32→20:35)
[2017-07-23 05:44] LABS: PLATELET COUNT 709 10^3/uL (150-400)
[2017-07-23] MEDS: FAMOTIDINE 20 MG/NACL 50 ML IV SCH ×2 (08:32→20:42)
[2017-07-23] MEDS: ENOXAPARIN 40 MG/0.4 ML SYR SC SCH (08:32)
[2017-07-23] MEDS: NICOTINE 21 MG/24 HR PATCH TD SCH (08:32)
[2017-07-23] MEDS: SENNOSIDES 17.6 MG/10 ML UDL TUBE SCH ×2 (10:53→20:42)
[2017-07-23] MEDS: THIAMINE HCL 100 MG TAB TUBE SCH (10:54)
--- NOTE | 2017-07-23 12:06 | PDINTPN ---
Home Health Aide Progress Note Assessment/Plan: Assessment: 57 M with hx etoh found by roommates sitting in his own feces and intoxicated, admitted 07/11/17 with aspiration PNA. Treated with Unasyn with thorough ID evaluation- recently seen at [facility] with scrotal/penile lesions and extensive negative w/u. Also with pustular rash on bilateral hands. * Acute respiratory failure with hypoxia- his ability to protect his airway in the setting of severe pneumonia required urgent/emergent intubation on 07/16/17. Large mucous plug removed from left main stem and sent to lab for micro. Extubated 07/20, had increased O2 needs last night improved after therapeutic bronch 07/23. Now on low-flow NC O2. * PNA- presumed aspiration. Completed Unasyn. S. Maltophilia grew from BAL, but I suspect colonization since all parameters point to improvement without adding Bactrim. His EtOH wd may have been a barrier to adequate secretion management, hence his intubation. He still has a "wet" cough and trouble handling secretions , but this is improving. * ?Seizure- stat non-contrast head CT 07/17/17 unremarkable. Neuro consult said no seizure likely, no anti-epileptics. * MS change- related to EtOH intoxication. * EtOH w/d- was on CIWA, but Precedex was inadequate to maintain vent so changed to propofol alone. Day # 11 hospitalization, so should be less of an issue. * rash- anticipate biopsy soon. Not porphyria with undetectable porphyrins * Nutrition: TF stopped 3 days ago. Failed swallow today. * Hypernatremia: Down today with 1/2 NS * discussed in detail with multiple providers Plan: Increase activity as tolerated. Speech/swallow exercises. Hold of on feeding tube as he is improved today and I'm hopeful the improvement will continue, he could be swallowing in 1-3 days. Haldol/Precedex again tonight for sleep. Follow Na 07/23/17 12:03 07/23/17 12:06 Subjective: Slept well last night. A bit stronger and more alert today. Wants to eat. Objective: Vital Signs Temp Pulse Resp BP Pulse Ox 37.0 C 74 14 124/83 H 100 07/22/17 20:00 07/23/17 11:26 07/23/17 11:26 07/23/17 08:00 07/23/17 11:26 Microbiology 07/22/17 17:01 Gram Stain - Final Lung - Bronchial Washings Laboratory Results 07/23/17 05:30 07/23/17 05:30 07/22/17 07/23/17 07/24/17 05:59 05:59 05:59 Intake Total 1330 1832 Output Total 800 300 100 Balance 530 1532 -100 PT 13.8 SEC (12.0-15.0) 07/11/17 19:25 INR 1.04 (0.83-1.16) 07/11/17 19:25 CXR: Improved right base. Images reviewed by me. Physical Exam - Physical Exam General Appearance: alert, no apparent distress EENT: normal ENT inspection Neck: normal inspection Respiratory: crackles Cardiac/Chest: regular rate, rhythm, edema Abdomen: normal bowel sounds, non-tender, soft Skin: normal color, warm/dry Extremities: normal inspection Neuro/Psych: alert, motor weakness (diffuse, improved) ICD10 Worksheet Patient Problems: Problems Problem Status Onset Alcoholic intoxication Acute Elevated troponin Acute Scrotal infection Acute
--- NOTE | 2017-07-23 14:20 | ASMTCMCOM ---
CM Note CM Note Notes: I spoke with patient and his kids Monty and Radha. I explained that I confirmed patient's VA benefits with financial counseling. Per FC, the VA has not denied any claims from this hospitalization at this point. FC did say that she did not know if [place] would cover any needs post-discharge. I asked patient if he had insurance through his employer, [employer] (FYI, he is currently on paid furlough from [employer] right now d/t a lawsuit). He says that he does although he's not sure who the carrier is. He visited our ED 4x in April and a secondary carrier (in add'n to the VA) was never noted. I called [facility]'s HR department ([phone]) and left a voicemail requesting a call back. Patient's son Monty plans to go to his apartment today, meet his roommates, and look for any documentation about insurance. Regarding discharge planning, therapies are still recommending SNF. If VA is only healthcare provider, we will have to work through them for coverage. Patient's family clearly wants him to have SNF rehab and EtOH treatment but they feel that they have to respect patient's wishes. It's unclear what kind of grasp patient has on his situation. 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 Monty says that that's probably not feasible, as she is 80 and has a full house. All of patient's family is in [place] (patient moved to [place] a year ago for the job at [employer]). I mentioned to the family that they could consider SNF/EtOH rehab in [place], as well. This could be a complicated discharge. Case Managment will continue working to help facilitate a safe plan. Date Signed: 07/23/2017 02:20 PM Electronically Signed By:Love Torre RN
--- NOTE | 2017-07-23 15:35 | ASMTCMCOM ---
CM Note CM Note Notes: I called the [facility] [phone] and after 35 minutes on hold was told that patient needs to enroll with the [facility] to have any services post-hospitalization. I gave the number [phone] to the patient's family to call and start the enrollment process. It is unlikely the VA will pay for any services post-hospitalization unless patient has a PCP and is enrolled with the VA. Date Signed: 07/23/2017 03:34 PM Electronically Signed By:Love Torre RN
[2017-07-23] MEDS: NYSTATIN 15 GM OINTMENT TP SCH ×2 (15:54→20:42)
[2017-07-23] MEDS: HALOPERIDOL LACT 5 MG/ML INJ IVP PRN ×2 (15:58→22:46)
--- NOTE | 2017-07-23 19:51 | HOSPPROG ---
Hospitalist Progress Note Assessment/Plan: # acute hypoxic resp failure - acute decompensation possibly 2/2 poor secretion management-bronchoscopy with clearance of secretions cxr (personally reviewed and interpreted) bilateral infiltrates- oxygen saturations markedly improved 96% on 2L - completed abx course - follow bronch cultures - cont RT support # acute encephalopathy - multifactorial 2/2 etOH w/d and pna- markedly improved today - cont PT/OT/ST # Aspiration pna - CXR (personally reviewed and interpreted) bilateral infiltrates- oxygen saturations 88% on 15L Stenotrophomonas in bronch cx - follow cultures stable on no Abx # acute hypernatremia- sodium 151 -> 148 this a.m.- continue hypotonic fluids to reverse No significant p.o. Intake secondary to mental status - speech eval hopeful to start PO # etOH abuse and w/d - doubt w/d as 10 days into hospitalization - continue thiamin # dorsum of hand rash - porphyrins negative - psoriasis? # genital lesions, bacterial per ID # abnormal ECG s/p negative cath # htn - IV metoprolol- can transition to p.o. Meds when tolerating p.o. # ppx - lovenox, pepcid # disposition greater than 2 midnights as remains encephalopathic requiring higher level of medical supporting care Discussed the case with Dr. Vazquez- video swallow today-optomistic about progress overnight Subjective: denies pain Objective: Vital Signs Temp Pulse Resp BP Pulse Ox 36.8 C 96 26 H 136/82 H 96 07/23/17 18:00 07/23/17 18:20 07/23/17 18:00 07/23/17 18:20 07/23/17 18:00 Microbiology 07/22/17 17:01 Gram Stain - Final Lung - Bronchial Washings Laboratory Results 07/23/17 05:30 07/23/17 05:30 07/22/17 07/23/17 07/24/17 05:59 05:59 05:59 Intake Total 1330 1832 1370 Output Total 800 300 100 Balance 530 1532 1270 PT 13.8 SEC (12.0-15.0) 07/11/17 19:25 INR 1.04 (0.83-1.16) 07/11/17 19:25 - Physical Exam Constitutional: chronically ill appearing Eyes: anicteric sclera Ears, Nose, Mouth, Throat: dry mucous membranes Cardiovascular: regular rate and rhythym Respiratory: rhonchi Gastrointestinal: normoactive bowel sounds Genitourinary: no bladder fullness Skin: warm Musculoskeletal: No asymmetric calves Neurologic: No AAOx3 Psychiatric: No agitated Lymph, Heme, Immunologic: no cervical LAD ICD10 Worksheet Patient Problems: Problems Problem Status Onset Alcoholic intoxication Acute Elevated troponin Acute Scrotal infection Acute
[2017-07-23] MEDS: MELATONIN 3 MG TAB TUBE SCH (20:42)
[2017-07-24] MEDS: DEXMEDETOMIDINE IN 0.9 % NACL 50 ML IV SCH ×3 (00:36→21:23)
[2017-07-24] MEDS: METOPROLOL TARTRATE 5 MG/5 ML INJ IV SCH ×4 (00:38→19:27)
[2017-07-24] MEDS: D5W 1/2 NS W/ 20 KCl/L 1,000 ML IV SCH ×4 (03:37→21:23)
[2017-07-24] MEDS: IPRATROPIUM/ALBUTEROL 3 ML DEYVIAL IH SCH ×4 (05:25→20:19)
[2017-07-24 05:31] LABS: PLATELET COUNT 638 10^3/uL (150-400)
[2017-07-24] MEDS: FAMOTIDINE 20 MG/NACL 50 ML IV SCH ×2 (09:06→19:59)
[2017-07-24] MEDS: ENOXAPARIN 40 MG/0.4 ML SYR SC SCH (09:06)
[2017-07-24] MEDS: NICOTINE 21 MG/24 HR PATCH TD SCH (09:06)
[2017-07-24] MEDS: NYSTATIN 15 GM OINTMENT TP SCH ×2 (09:12→19:59)
--- NOTE | 2017-07-24 10:02 | PDINTPN ---
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 Treated with Unasyn with thorough ID evaluation- recently seen at [facility] with scrotal/penile lesions and extensive negative w/u. Also with pustular rash on bilateral hands. * Acute respiratory failure with hypoxia- his ability to protect his airway in the setting of severe pneumonia required urgent/emergent intubation on 07/16/17. Large mucous plug removed from left main stem and sent to lab for micro. Extubated 07/20, had increased O2 needs last night improved after therapeutic bronch 07/23. Now on low-flow NC O2. * PNA- presumed aspiration. Completed Unasyn. S. Maltophilia grew from BAL, but I suspect colonization since all parameters point to improvement without adding Bactrim. His EtOH wd may have been a barrier to adequate secretion management, hence his intubation. He still has a "wet" cough and trouble handling secretions , but this is improving. * ?Seizure- stat non-contrast head CT 07/17/17 unremarkable. Neuro consult said no seizure likely, no anti-epileptics. * MS change- related to EtOH intoxication. Improving daily. * EtOH w/d- was on CIWA, but Precedex was inadequate to maintain vent so changed to propofol alone. Day # 11 hospitalization, so should be less of an issue. * rash- anticipate biopsy soon. Not porphyria with undetectable porphyrins * Nutrition: TF stopped 4 days ago. Failed swallow 07/23. * Hypernatremia: Down again today with 1/2 NS, nearly to normal range. Plan: Increase activity as tolerated. Speech/swallow exercises. Will discuss with patient, children, and ST, I would favor starting TFs sooner rather than later if he's not imminently going to be able to swallow. Precedex again tonight for sleep PRN, stop Haldol. Follow Na. 07/24/17 11:31 Subjective: Feels a bit better. Walked in jon. Voice still weak, and he's hungry. Objective: Vital Signs Temp Pulse Resp BP Pulse Ox 37.0 C 84 14 124/82 H 96 07/24/17 04:00 07/24/17 06:43 07/24/17 06:00 07/24/17 06:43 07/24/17 08:04 Microbiology 07/22/17 17:01 Gram Stain - Final Lung - Bronchial Washings Laboratory Results 07/24/17 05:05 07/24/17 05:05 07/23/17 07/24/17 07/25/17 05:59 05:59 05:59 Intake Total 1832 2982 Output Total 300 500 Balance 1532 2482 PT 13.8 SEC (12.0-15.0) 07/11/17 19:25 INR 1.04 (0.83-1.16) 07/11/17 19:25 Bronch: S. Aureus, S. maltophilia. Physical Exam - Physical Exam General Appearance: alert, no apparent distress EENT: normal ENT inspection Neck: normal inspection Respiratory: lungs clear, normal breath sounds Cardiac/Chest: regular rate, rhythm, No edema Abdomen: normal bowel sounds, non-tender, soft Skin: normal color, warm/dry Extremities: normal inspection Neuro/Psych: alert, normal mood/affect, oriented x 3 ICD10 Worksheet Patient Problems: Problems Problem Status Onset Alcoholic intoxication Acute Elevated troponin Acute Scrotal infection Acute
[2017-07-24] MEDS: SENNOSIDES 17.6 MG/10 ML UDL TUBE SCH ×2 (10:10→19:26)
[2017-07-24] MEDS: THIAMINE HCL 100 MG TAB TUBE SCH (10:11)
--- NOTE | 2017-07-24 19:25 | HOSPPROG ---
Hospitalist Progress Note Assessment/Plan: # acute hypoxic resp failure - has improved significantly in past 48 hours oxygen saturamarkedly improved 96% on 2L - completed abx course - follow bronch cultures - cont ST support - working on vocal strength and swallow # acute encephalopathy - multifactorial 2/2 etOH w/d and pna- markedly improved today - cont PT/OT/ST # Aspiration pna - CXR (personally reviewed and interpreted) bilateral infiltrates- Stenotrophomonas in bronch cx - follow cultures stable on no Abx # acute hypernatremia- sodium 151 -> 146 this a.m.- continue hypotonic fluids to reverse No significant p.o. Intake secondary to mental status - speech treatments hopeful to start PO # etOH abuse and w/d - doubt w/d as 10 days into hospitalization - continue thiamin # dorsum of hand rash - porphyrins negative - psoriasis? # genital lesions, bacterial per ID # abnormal ECG s/p negative cath # htn - IV metoprolol- can transition to p.o. Meds when tolerating p.o. # ppx - lovenox, pepcid # disposition greater than 2 midnights as remains encephalopathic requiring higher level of medical supporting care Discussed the case with Dr. Vazquez- will wait to initiate TF until speech eval tomorrow Subjective: feeling stronger Objective: Vital Signs Temp Pulse Resp BP Pulse Ox 36.8 C 106 H 20 160/69 H 97 07/24/17 08:00 07/24/17 18:00 07/24/17 18:00 07/24/17 18:00 07/24/17 18:00 Microbiology 07/22/17 17:01 Gram Stain - Final Lung - Bronchial Washings Bronchial Washings Culture - Final Staphylococcus Aureus Stenotrophomonas Maltophilia Laboratory Results 07/24/17 05:05 07/24/17 05:05 07/23/17 07/24/17 07/25/17 05:59 05:59 05:59 Intake Total 1832 2982 1796 Output Total 300 500 100 Balance 1532 2482 1696 PT 13.8 SEC (12.0-15.0) 07/11/17 19:25 INR 1.04 (0.83-1.16) 07/11/17 19:25 - Physical Exam Constitutional: chronically ill appearing Eyes: anicteric sclera Ears, Nose, Mouth, Throat: dry mucous membranes Cardiovascular: regular rate and rhythym Respiratory: no respiratory distress Gastrointestinal: normoactive bowel sounds Genitourinary: no bladder fullness Skin: warm Musculoskeletal: No asymmetric calves Neurologic: AAOx3 Psychiatric: interacting appropriately, No encephalopathic Lymph, Heme, Immunologic: no cervical LAD ICD10 Worksheet Patient Problems: Problems Problem Status Onset Alcoholic intoxication Acute Elevated troponin Acute Scrotal infection Acute
[2017-07-24] MEDS: MELATONIN 3 MG TAB TUBE SCH (19:26)
[2017-07-24] MEDS: HALOPERIDOL LACT 5 MG/ML INJ IVP PRN (21:49)
[2017-07-25] MEDS: METOPROLOL TARTRATE 5 MG/5 ML INJ IV SCH ×3 (01:23→12:46)
[2017-07-25] MEDS: D5W 1/2 NS W/ 20 KCl/L 1,000 ML IV SCH ×2 (04:09→11:16)
[2017-07-25] MEDS: DEXMEDETOMIDINE IN 0.9 % NACL 50 ML IV SCH (04:09)
[2017-07-25] MEDS: IPRATROPIUM/ALBUTEROL 3 ML DEYVIAL IH SCH ×4 (05:06→21:03)
[2017-07-25] MEDS: THIAMINE HCL 100 MG TAB TUBE SCH (09:08)
[2017-07-25] MEDS: SENNOSIDES 17.6 MG/10 ML UDL TUBE SCH (09:08)
[2017-07-25] MEDS: ENOXAPARIN 40 MG/0.4 ML SYR SC SCH (09:19)
[2017-07-25] MEDS: FAMOTIDINE 20 MG/NACL 50 ML IV SCH ×2 (09:19→20:20)
[2017-07-25] MEDS: NICOTINE 21 MG/24 HR PATCH TD SCH (09:19)
[2017-07-25] MEDS: NYSTATIN 15 GM OINTMENT TP SCH (09:24)
--- NOTE | 2017-07-25 09:38 | PDINTPN ---
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 Treated with Unasyn with thorough ID evaluation- recently seen at [facility] with scrotal/penile lesions and extensive negative w/u. Also with pustular rash on bilateral hands. * Acute respiratory failure with hypoxia- his ability to protect his airway in the setting of severe pneumonia required urgent/emergent intubation on 07/16/17. Large mucous plug removed from left main stem and sent to lab for micro. Extubated 07/20, now on low-flow NC O2. * PNA- presumed aspiration. Completed Unasyn. S. Maltophilia grew from BAL, but I suspect colonization since all parameters point to improvement without adding Bactrim. His EtOH wd may have been a barrier to adequate secretion management, hence his intubation. He still has a "wet" cough and trouble handling secretions , but this is improving. * ?Seizure- stat non-contrast head CT 07/17/17 unremarkable. Neuro consult said no seizure likely, no anti-epileptics. * MS change- related to EtOH intoxication. Improving daily. * EtOH w/d- Now at 2 weeks of hospitalization, should no longer be an issue. * rash- anticipate biopsy soon. Not porphyria with undetectable porphyrins * Nutrition: TF stopped 5 days ago. Failed swallow 07/23. * Hypernatremia: Stable today with 1/2 NS, nearly to normal range. Plan: Increase activity as tolerated. Speech/swallow exercises. Will discuss with patient, children, and ST, I would favor starting TFs sooner rather than later if he's not imminently going to be able to swallow. Videoswallow today if OK with ST. Precedex again tonight for sleep PRN, stop Haldol. Follow Na. Repeat CXR tomorrow. 07/25/17 09:35 Subjective: Feels OK, slept OK with Haldol and Precedex, but had several awakenings, mostly due to coughing/suctioning.Strength a bit better today. Objective: Vital Signs Temp Pulse Resp BP Pulse Ox 36.4 C 97 27 H 156/89 H 97 07/25/17 08:00 07/25/17 08:00 07/25/17 08:00 07/25/17 08:00 07/25/17 08:00 Microbiology 07/22/17 17:01 Gram Stain - Final Lung - Bronchial Washings Bronchial Washings Culture - Final Staphylococcus Aureus Stenotrophomonas Maltophilia Laboratory Results 07/24/17 05:05 07/25/17 04:15 07/24/17 07/25/17 07/26/17 05:59 05:59 05:59 Intake Total 2982 3201.5 Output Total 500 400 Balance 2482 2801.5 PT 13.8 SEC (12.0-15.0) 07/11/17 19:25 INR 1.04 (0.83-1.16) 07/11/17 19:25 Physical Exam - Physical Exam General Appearance: alert, no apparent distress EENT: pharynx normal Neck: normal inspection Respiratory: lungs clear, normal breath sounds Cardiac/Chest: regular rate, rhythm, No edema Abdomen: normal bowel sounds, non-tender Skin: normal color, warm/dry Extremities: normal inspection Neuro/Psych: alert, normal mood/affect, motor weakness, speech abnormalities ( hoarse) ICD10 Worksheet Patient Problems: Problems Problem Status Onset Alcoholic intoxication Acute Elevated troponin Acute Scrotal infection Acute
--- NOTE | 2017-07-25 13:29 | HOSPPROG ---
Hospitalist Progress Note Assessment/Plan: # acute hypoxic resp failure - has improved significantly in past 48 hours-CXR (personally reviewed and interpreted) persistent bilateral infiltrates- sl improved oxygen saturations improved 93% on 2L - completed abx course - follow bronch cultures - cont ST support - working on vocal strength and swallow # acute encephalopathy - multifactorial 2/2 etOH w/d and pna- markedly improved today - cont PT/OT/ST # Aspiration pna - Stenotrophomonas in bronch cx - follow cultures stable on no Abx # acute hypernatremia- sodium 151 -> 147 this a.m.-No significant p.o. Intake secondary to mental status - continue hypotonic fluids to reverse - slow progress with speech treatments - suspect will need feeding tube today # etOH abuse and w/d - doubt w/d as 10 days into hospitalization - continue thiamine # dorsum of hand rash - porphyrins negative - psoriasis? # genital lesions, bacterial per ID # abnormal ECG s/p negative cath # htn - IV metoprolol- can transition to p.o. Meds when tolerating p.o. # ppx - lovenox, pepcid # disposition greater than 2 midnights as remains encephalopathic requiring higher level of medical supporting care Discussed the case with Dr. Vazquez- anticipate a feeding tube today Subjective: denies pain Objective: Vital Signs Temp Pulse Resp BP Pulse Ox 36.4 C 101 H 38 H 147/86 H 93 07/25/17 08:00 07/25/17 12:46 07/25/17 10:37 07/25/17 12:46 07/25/17 10:37 Microbiology 07/22/17 17:01 Gram Stain - Final Lung - Bronchial Washings Bronchial Washings Culture - Final Staphylococcus Aureus Stenotrophomonas Maltophilia Laboratory Results 07/24/17 05:05 07/25/17 04:15 07/24/17 07/25/17 07/26/17 05:59 05:59 05:59 Intake Total 2982 3201.5 Output Total 500 400 Balance 2482 2801.5 PT 13.8 SEC (12.0-15.0) 07/11/17 19:25 INR 1.04 (0.83-1.16) 07/11/17 19:25 - Physical Exam Constitutional: chronically ill appearing Eyes: anicteric sclera Ears, Nose, Mouth, Throat: dry mucous membranes Cardiovascular: regular rate and rhythym Respiratory: rhonchi Gastrointestinal: normoactive bowel sounds Genitourinary: no bladder fullness Skin: warm Musculoskeletal: No asymmetric calves Neurologic: AAOx3 Psychiatric: interacting appropriately Lymph, Heme, Immunologic: no cervical LAD ICD10 Worksheet Patient Problems: Problems Problem Status Onset Alcoholic intoxication Acute Elevated troponin Acute Scrotal infection Acute
--- NOTE | 2017-07-25 13:56 | ASMTCMCOM ---
PHONG Note CM Note Notes: Met with patient and his two children today. They have decided as a family to take their father back to [place], home, at d/c. Daughter Radha is returning to [place] today and plans to get follow-up services set up for her father there. Son Monty will stay with patient here as long as he can. Radha was given the director of casework services/high school social studies tutor information so she can coordinate with us her efforts with the [facility]. CM will follow. Date Signed: 07/25/2017 01:55 PM Electronically Signed By:Suzanna Romero LCSW
[2017-07-25] MEDS: CETIRIZINE 10 MG TAB PO SCH (15:42)
[2017-07-25] MEDS: ACETAMINOPHEN 325 MG TAB PO PRN (15:44)
[2017-07-25] MEDS ORDERED: LACTULOSE 20 GM/30 ML UDCUP PO PRN (16:00)
[2017-07-25] MEDS ORDERED: MAGNESIUM HYDROXIDE 30 ML UDCUP PO PRN (16:00)
[2017-07-25] MEDS ORDERED: ONDANSETRON DISINTEGRATING 4 MG TAB PO PRN (16:00)
[2017-07-25] MEDS ORDERED: POLYETHYLENE GLYCOL 3350 17 GM PKT PO PRN (16:00)
[2017-07-25] MEDS: NICOTINE 7 MG/24 HR PATCH TD SCH (18:43)
[2017-07-25] MEDS: METOPROLOL TARTRATE 50 MG TAB PO SCH (20:19)
[2017-07-25] MEDS: MELATONIN 3 MG TAB PO SCH (20:19)
[2017-07-26] MEDS: D5W 1/2 NS W/ 20 KCl/L 1,000 ML IV SCH (01:40)
[2017-07-26] MEDS ORDERED: ALBUTEROL 3 ML DEYVIAL ONE (01:45)
[2017-07-26] MEDS ORDERED: ALBUTEROL 3 ML DEYVIAL IH PRN (01:45)
[2017-07-26] MEDS ORDERED: DEXMEDETOMIDINE HCL 400 MCG in NS 100 ML IV SCH (02:30)
[2017-07-26] MEDS: NYSTATIN 15 GM OINTMENT TP SCH ×2 (02:48→15:38)
[2017-07-26] MEDS: IPRATROPIUM/ALBUTEROL 3 ML DEYVIAL IH SCH ×4 (05:06→21:04)
[2017-07-26] MEDS: METOPROLOL TARTRATE 50 MG TAB PO SCH (09:03)
[2017-07-26] MEDS: THIAMINE HCL 100 MG TAB PO SCH (09:04)
[2017-07-26] MEDS: NICOTINE 7 MG/24 HR PATCH TD SCH (09:04)
[2017-07-26] MEDS: CETIRIZINE 10 MG TAB PO SCH (09:04)
[2017-07-26] MEDS: ENOXAPARIN 40 MG/0.4 ML SYR SC SCH (09:04)
[2017-07-26] MEDS: FAMOTIDINE 20 MG/NACL 50 ML IV SCH (09:04)
[2017-07-26] MEDS ORDERED: CYANO/VITAMIN B12 1000 MCG/ML VIAL IM ONE (09:15)
[2017-07-26] MEDS ORDERED: ALBUTEROL 60 PUFFS/8 GM MDI IH PRN (09:30)
--- NOTE | 2017-07-26 09:34 | PDINTPN ---
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 Treated with Unasyn with thorough ID evaluation- recently seen at [facility] with scrotal/penile lesions and extensive negative w/u. Also with pustular rash on bilateral hands. * Acute respiratory failure with hypoxia- his ability to protect his airway in the setting of severe pneumonia required urgent/emergent intubation on 07/16/17. Large mucous plug removed from left main stem and sent to lab for micro. Extubated 07/20, now on low-flow [place] O2. * PNA- presumed aspiration. Completed Unasyn. S. Maltophilia grew from BAL, but I suspect colonization since all parameters point to improvement without adding Bactrim. His EtOH wd may have been a barrier to adequate secretion management, hence his intubation. He still has a "wet" cough and trouble handling secretions , but this is improving. CXR continues to show basilar densities, ? due to mucous plugging, pulmonary edema, effusions. I>>O last several days. * ?Seizure- stat non-contrast head CT 07/17/17 unremarkable. Neuro consult said no seizure likely, no anti-epileptics. * MS change- related to EtOH intoxication. Improving daily. * EtOH w/d- Now at 2 weeks of hospitalization, should no longer be an issue. * rash- anticipate biopsy soon. Not porphyria with undetectable porphyrins * Nutrition: Was NPO for 5 days, started PO yesterday and doing well. * Hypernatremia: Normalized today. On 05/27 NS. * Macrocytic anemia Plan: Increase activity as tolerated. Albuterol MDI PRN. Speech/swallow exercises. D/C IVF, follow Na. Check serum B12, Folate, start replacement in the meantime, as well as FeSO4. Start Lasix. Check BNP. If elevated, diurese and possibly check ECHO. If normal, consider CXRs with decubitus views vs. CT chest. D/C Precedex. 07/26/17 09:47 Subjective: Slept OK last night, but has some episodic dyspnea. Cough/congestion persists. Voice/swallow stronger. Objective: Vital Signs Temp Pulse Resp BP Pulse Ox 37 C 101 H 16 138/78 H 92 07/26/17 04:00 07/26/17 09:03 07/26/17 08:00 07/26/17 09:03 07/26/17 08:00 Laboratory Results 07/24/17 05:05 07/26/17 05:15 07/25/17 07/26/17 07/27/17 05:59 05:59 05:59 Intake Total 3201.5 3982 Output Total 400 500 50 Balance 2801.5 3482 -50 PT 13.8 SEC (12.0-15.0) 07/11/17 19:25 INR 1.04 (0.83-1.16) 07/11/17 19:25 CXR: Bibasilar infiltrates/effusions, increased on right, decreased on left. Images reviewed by me. Physical Exam - Physical Exam General Appearance: alert, no apparent distress EENT: normal ENT inspection Neck: normal inspection Respiratory: decreased breath sounds (bases) Cardiac/Chest: regular rate, rhythm, edema (2+) Abdomen: normal bowel sounds, non-tender Skin: normal color, warm/dry Extremities: normal inspection Neuro/Psych: alert, normal mood/affect, oriented x 3 ICD10 Worksheet Patient Problems: Problems Problem Status Onset Alcoholic intoxication Acute Elevated troponin Acute Scrotal infection Acute
[2017-07-26] MEDS ORDERED: FUROSEMIDE 20 MG/2 ML VIAL IVP ONE (09:46)
[2017-07-26] MEDS: FERROUS SULFATE 325 MG TAB PO SCH (10:35)
[2017-07-26] MEDS: FOLIC ACID 1 MG TAB PO SCH (10:35)
--- NOTE | 2017-07-26 12:19 | HOSPPROG ---
Hospitalist Progress Note Assessment/Plan: # acute hypoxic resp failure - PNA, aspiration. Improving. CXR (personally reviewed and interpreted) persistent bilateral infiltrates- sl improved oxygen saturations improved 98% on 2L - completed abx course - follow bronch cultures - cont ST support - working on vocal strength and swallow - initiating lasix today # acute encephalopathy - multifactorial 2/2 etOH w/d and pna- improved today - cont PT/OT/ST - d/c precedex (still using at night) # Aspiration pna - Stenotrophomonas in bronch cx - follow cultures stable on no Abx # acute hypernatremia- sodium 151 -> 145 this a.m.-No significant p.o. Intake secondary to mental status - some progress with speech therapy, able to take honey thick liquids - follow # etOH abuse and w/d - doubt w/d as 10 days into hospitalization - continue thiamine # dorsum of hand rash - porphyrins negative - psoriasis vs eczema? - topical HC # genital lesions, bacterial per ID # abnormal ECG s/p negative cath # htn - cont oral metoprolol # FEN - regular diet, honey thick liquids ok per speech # ppx - lovenox, pepcid # disposition greater than 2 midnights as remains encephalopathic requiring higher level of medical supporting care Discussed the case with Dr. Vazquez Subjective: Pt doing better, but c/o cough, orthopnea and increased SOB. Weak cough. Taking honey thick liquids. No fevers. Objective: Vital Signs Temp Pulse Resp BP Pulse Ox 37 C 87 18 138/78 H 96 07/26/17 04:00 07/26/17 11:54 07/26/17 11:54 07/26/17 09:03 07/26/17 11:54 Laboratory Results 07/24/17 05:05 07/26/17 05:15 07/25/17 07/26/17 07/27/17 05:59 05:59 05:59 Intake Total 3201.5 3982 Output Total 400 500 50 Balance 2801.5 3482 -50 PT 13.8 SEC (12.0-15.0) 07/11/17 19:25 INR 1.04 (0.83-1.16) 07/11/17 19:25 - Physical Exam Constitutional: no apparent distress Eyes: PERRL Ears, Nose, Mouth, Throat: moist mucous membranes Cardiovascular: regular rate and rhythym Respiratory: no respiratory distress, inspiratory crackles Gastrointestinal: normoactive bowel sounds, soft, non-tender abdomen Skin: warm Musculoskeletal: full muscle strength Neurologic: AAOx3 Psychiatric: interacting appropriately ICD10 Worksheet Patient Problems: Problems Problem Status Onset Alcoholic intoxication Acute Elevated troponin Acute Scrotal infection Acute
[2017-07-26] MEDS: FUROSEMIDE 20 MG/2 ML VIAL IVP SCH (15:38)
[2017-07-26] MEDS: ACETAMINOPHEN 325 MG TAB PO PRN (23:18)
[2017-07-27] MEDS: NYSTATIN 15 GM OINTMENT TP SCH ×2 (00:29→10:45)
[2017-07-27] MEDS: FERROUS SULFATE 325 MG TAB PO SCH ×3 (00:30→20:18)
[2017-07-27] MEDS: MELATONIN 3 MG TAB PO SCH ×2 (00:30→20:17)
[2017-07-27] MEDS: METOPROLOL TARTRATE 50 MG TAB PO SCH ×3 (00:30→20:18)
[2017-07-27 04:44] LABS: PLATELET COUNT 466 10^3/uL (150-400)
[2017-07-27] MEDS: IPRATROPIUM/ALBUTEROL 3 ML DEYVIAL IH SCH ×4 (05:09→19:38)
[2017-07-27] MEDS ORDERED: PROTOCOL POTASSIUM 1 DOSE MISC PRN (07:17)
[2017-07-27] MEDS ORDERED: PROTOCOL MAGNESIUM 1 DOSE IV PRN (07:17)
[2017-07-27] MEDS: POTASSIUM Cl (KCl) 50 ML IV SCH ×2 (08:10→10:45)
[2017-07-27] MEDS ORDERED: MAGNESIUM SULF 1 GM/DEXTROSE 100 ML IV ONE (08:56)
[2017-07-27] MEDS: THIAMINE HCL 100 MG TAB PO SCH (09:22)
[2017-07-27] MEDS: CETIRIZINE 10 MG TAB PO SCH (09:22)
[2017-07-27] MEDS: FOLIC ACID 1 MG TAB PO SCH (09:22)
[2017-07-27] MEDS: ENOXAPARIN 40 MG/0.4 ML SYR SC SCH (09:22)
[2017-07-27] MEDS: FAMOTIDINE 20 MG TAB PO SCH (09:22)
[2017-07-27] MEDS: NICOTINE 7 MG/24 HR PATCH TD SCH (09:22)
[2017-07-27] MEDS: FUROSEMIDE 20 MG/2 ML VIAL IVP SCH ×2 (09:48→16:40)
[2017-07-27] MEDS ORDERED: POTASSIUM CL 20 MEQ TAB PO ONE (11:19)
--- NOTE | 2017-07-27 11:23 | PDINTPN ---
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 Treated with Unasyn with thorough ID evaluation- recently seen at [facility] with scrotal/penile lesions and extensive negative w/u. Also with pustular rash on bilateral hands. * Acute respiratory failure with hypoxia- his ability to protect his airway in the setting of severe pneumonia required urgent/emergent intubation on 07/16/17. Large mucous plug removed from left main stem and sent to lab for micro. Extubated 07/20, now on low-flow [place] O2. * PNA- presumed aspiration. Completed Unasyn. S. Maltophilia grew from BAL, but I suspect colonization since all parameters point to improvement without adding Bactrim. He still has a "wet" cough and trouble handling secretions easily, but this is improving and he passed his swallow evaluation 07/25. CXR continues to show basilar densities, ? due to mucous plugging, pulmonary edema, effusions. I> >O for several days, improved with Lasix started 07/26. * ?Seizure- stat non-contrast head CT 07/17/17 unremarkable. Neuro consult said no seizure likely, no anti-epileptics. * MS change- related to EtOH intoxication. Improving daily. * EtOH w/d- Now at 2+ weeks of hospitalization, should no longer be an issue. * rash- anticipate biopsy soon. Not porphyria with undetectable porphyrins * Nutrition: Was NPO for 5 days, started PO 07/25 and doing well. * Hypernatremia: Normalized * Macrocytic anemia: H/H down again a bit today. Folate and B12 levels OK, but had started replacement anyway and will continue for a few days. * hyponatremia: Due to diuresis. Plan: Increase activity as tolerated. Albuterol MDI PRN. Speech/swallow exercises. D/C IVF, follow Na. Check serum B12, Folate, start replacement in the meantime, as well as FeSO4. Start Lasix due to elevated BNP. Await ECHO results. Recheck CXR 07/28 after few days of diuresis. 07/27/17 11:28 Subjective: Slept OK with low-dose Precedex last night. Still feels quite weak. Appetite fair. Congested cough. Objective: Vital Signs Temp Pulse Resp BP Pulse Ox 36.3 C 87 15 138/88 H 100 07/26/17 19:47 07/27/17 09:22 07/27/17 08:00 07/27/17 08:00 07/27/17 08:58 Laboratory Results 07/27/17 04:30 07/27/17 04:30 07/26/17 07/27/17 07/28/17 05:59 05:59 05:59 Intake Total 3982 100 360 Output Total 500 3550 375 Balance 3482 -3450 -15 PT 13.8 SEC (12.0-15.0) 07/11/17 19:25 INR 1.04 (0.83-1.16) 07/11/17 19:25 Laboratory Tests 07/26/17 09:35 Vitamin B12 > 1000 H Folate 12.00 Physical Exam - Physical Exam General Appearance: alert, no apparent distress EENT: normal ENT inspection Neck: normal inspection Respiratory: crackles (bases) Cardiac/Chest: regular rate, rhythm, edema (2+) Abdomen: normal bowel sounds, non-tender Skin: normal color, warm/dry Extremities: normal inspection Neuro/Psych: alert, normal mood/affect, oriented x 3 ICD10 Worksheet Patient Problems: Problems Problem Status Onset Alcoholic intoxication Acute Elevated troponin Acute Scrotal infection Acute
[2017-07-27] MEDS: BUDESONIDE/FORMOTEROL 160/4.5 60 PUFFS/MDI IH SCH ×2 (11:43→19:37)
--- NOTE | 2017-07-27 15:38 | HOSPPROG ---
Hospitalist Progress Note Assessment/Plan: # acute hypoxic resp failure - aspiration PNA plus volume overload. CXR ( personally reviewed and interpreted) persistent bilateral infiltrates- sl improved oxygen saturations improved 97% on 1L - completed abx course - cont ST support - working on vocal strength and swallow - cont IV lasix / diuresis - rpt cxr in am # acute encephalopathy - multifactorial 2/2 etOH w/d and pna- improved - cont PT/OT/ST - d/c precedex (still using at night) # Aspiration pna - Stenotrophomonas in bronch cx, completed atbx # volume overload - wt 9 kg up, diuresed net neg >3L overnight -cont IV lasix -follow I&O's, daily weights -echo pending # macrocytic anemia - s/p 1 u prbc's today for hgb 7.5. B12, folate levels nl. Suspect etoh related. # acute hypernatremia- sodium 151 -> 145 this a.m.-No significant p.o. Intake secondary to mental status - some progress with speech therapy, able to take honey thick liquids - follow # etOH abuse and w/d - doubt w/d as 10 days into hospitalization - continue thiamine # dorsum of hand rash - porphyrins negative - psoriasis vs eczema? - topical HC # genital lesions, bacterial per ID # abnormal ECG s/p negative cath # htn - cont oral metoprolol # FEN - regular diet, honey thick liquids ok per speech # ppx - lovenox, pepcid # disposition greater than 2 midnights as remains encephalopathic requiring higher level of medical supporting care Discussed the case with Dr. Vazquez Subjective: Pt feels ok, weak. not sleeping well. wet cough. denies CP or SOB at rest. no fevers. Objective: Vital Signs Temp Pulse Resp BP Pulse Ox 36.4 C 88 25 H 117/78 98 07/27/17 11:49 07/27/17 11:49 07/27/17 11:49 07/27/17 11:49 07/27/17 11:49 Laboratory Results 07/27/17 04:30 07/27/17 04:30 07/26/17 07/27/17 07/28/17 05:59 05:59 05:59 Intake Total 3982 100 600 Output Total 500 3550 725 Balance 3482 -3450 -125 PT 13.8 SEC (12.0-15.0) 07/11/17 19:25 INR 1.04 (0.83-1.16) 07/11/17 19:25 - Physical Exam Constitutional: no apparent distress Eyes: PERRL Ears, Nose, Mouth, Throat: moist mucous membranes Cardiovascular: regular rate and rhythym, JVD Respiratory: no respiratory distress, inspiratory crackles Gastrointestinal: normoactive bowel sounds, soft, non-tender abdomen Skin: warm Musculoskeletal: other (2+ b/l LE pitting edema) Neurologic: AAOx3 Psychiatric: interacting appropriately ICD10 Worksheet Patient Problems: Problems Problem Status Onset Alcoholic intoxication Acute Elevated troponin Acute Scrotal infection Acute
--- NOTE | 2017-07-27 15:54 | ECHO ---
[email or web address] [address] [address] Main: [phone] Fax: [email or web address] Echocardiogram Name: ANTHONY CANCINO MR#: [id number] Study Date: 07/27/2017 Study Time: 08:05 AM Date of : 1960 Age: 57 year(s) Height: 188 cm (74 in.) Weight: 76.66 kg (169 lb.) BSA: 2.02 m2 Gender: Male Examination: Echo Indication: Atrial fibrillation/elevated BNP Image Quality: Contrast: Requested by: Jerzy Vazquez BP: 138 mmHg/88 mmHg Heart Rate: Rhythm: Indication: Atrial fibrillation/elevated BNP Procedure Staff Equine Intern: Tiffanie Conner RDCS Reading Physician: César Martinez MD Requesting Provider: Equine Intern: Reading Physician: Requesting Provider: Conclusions: Normal size left ventricle. Mild concentric LV hypertrophy. Moderately to severely reduced systolic function. The ejection fraction is estimated to be 25-30 %. All LV segments appear hypo/akinetic with the exception of the basal segments.. Mildly reduced RV function. The left atrium is mildly dilated. The right atrium is mildly dilated. Moderate tricuspid regurgitation is present. RVSP is 52-57.. Left side pleural effusion. Measurements: Chambers Valvular Assessment AV/MV Valvular Assessment TV/PV Normal Normal Normal Name Value Range Name Value Range Name Value Range Ao Angelique (MM): 3.5 cm (2.2 cm-3.7 AV meanP mmHg ( - ) TR Vmax: 3.43 mm/s ( - ) cm) MV E Vmax: 0.82 m/s ( - ) TR PGmax: 47 mmHg ( - ) IVSd (2D): 1.1 cm (0.6 cm-1.1 MV A Vmax: 0.46 m/s ( - ) syst. PAP: 52 mmHg ( - ) cm) MV E/A: 1.78 ( - ) LVDd (2D): 5.0 cm (4.2 cm-5.9 cm) LVDs (2D): 3.8 cm (2.1 cm-4 cm) LVPWd (2D): 1.1 cm (0.6 cm-1 cm) LVEF (2D): 50 (>=54 %) Patient: ANTHONY CANCINO Study Date: 07/27/2017 Page 1 of 2 08:05 AM EF Range: 25-30 % Continued Measurements: Chambers Valvular Assessment AV/MV Valvular Assessment TV/PV Name Value Name Value Name Value LADs: 3.9 cm MV E/E' Septal: 12.10 CVP (est.): 5 mmHg LADs Lon.0 cm MV E/E' Lateral: 12.60 LA Area: 16.9 cm2 Additional Vessels Name Value Inferior Vena Cava: 2.7 cm Findings: Left Ventricle: Normal size left ventricle. Mild concentric LV hypertrophy. Moderately to severely reduced systolic function. The ejection fraction is estimated to be 25-30 %. All LV segments appear hypo/akinetic with the exception of the basal segments.. Right Ventricle: Normal size right ventricle. Mildly reduced RV function. Left Atrium: The left atrium is mildly dilated. Right Atrium: The right atrium is mildly dilated. Mitral Valve: The mitral valve is normal in appearance and function. Mild to moderate mitral regurgitation. Aortic Valve: The aortic valve is normal in appearance and function. Tricuspid Valve: The tricuspid valve is normal in appearance and function. Moderate tricuspid regurgitation is present. The pulmonary artery pressure is mildly increased. RVSP is 52-57.. Pulmonic Valve: The pulmonic valve is normal in appearance and function. Aorta: The aorta is normal. Pericardium: No pericardial effusion. Left side pleural effusion. (No Signature Object) Patient: ANTHONY CANCINO Study Date: 07/27/2017 Page 2 of 2 08:05 AM [id number]
[2017-07-27] MEDS ORDERED: POTASSIUM CL 10 MEQ TAB PO ONE (18:02)
[2017-07-28] MEDS: NYSTATIN 15 GM OINTMENT TP SCH ×3 (03:34→21:57)
[2017-07-28] MEDS: IPRATROPIUM/ALBUTEROL 3 ML DEYVIAL IH SCH ×4 (05:25→22:24)
[2017-07-28] MEDS ORDERED: POTASSIUM CL 10 MEQ TAB PO ONE ×3 (06:36→21:12)
[2017-07-28] MEDS ORDERED: MAGNESIUM SULF 1 GM/DEXTROSE 100 ML IV ONE (06:36)
[2017-07-28] MEDS: LISINOPRIL 5 MG TAB PO SCH (09:13)
[2017-07-28] MEDS: METOPROLOL TARTRATE 50 MG TAB PO SCH ×2 (09:13→21:15)
[2017-07-28] MEDS: CETIRIZINE 10 MG TAB PO SCH (09:13)
[2017-07-28] MEDS: FAMOTIDINE 20 MG TAB PO SCH (09:13)
[2017-07-28] MEDS: FOLIC ACID 1 MG TAB PO SCH (09:14)
[2017-07-28] MEDS: FUROSEMIDE 20 MG/2 ML VIAL IVP SCH ×2 (09:14→15:07)
[2017-07-28] MEDS: ENOXAPARIN 40 MG/0.4 ML SYR SC SCH (09:14)
[2017-07-28] MEDS: FERROUS SULFATE 325 MG TAB PO SCH ×2 (09:14→21:15)
[2017-07-28] MEDS: NICOTINE 7 MG/24 HR PATCH TD SCH (09:14)
[2017-07-28] MEDS: ASPIRIN EC 81 MG TAB PO SCH (09:14)
[2017-07-28] MEDS: THIAMINE HCL 100 MG TAB PO SCH (09:14)
--- NOTE | 2017-07-28 10:08 | HOSPPROG ---
Hospitalist Progress Note Assessment/Plan: # acute hypoxic resp failure - aspiration PNA plus volume overload. CXR ( personally reviewed and interpreted) persistent bilateral infiltrates- sl improved oxygen saturations improved 94% on room air - completed abx course - cont IV lasix / diuresis - rpt cxr today, pending # acute encephalopathy - multifactorial 2/2 etOH w/d and pna- improved - cont PT/OT/ST - off precedex # Aspiration pna - Stenotrophomonas in bronch cx, completed atbx - cont ST support - working on vocal strength and swallow # volume overload / acute systolic heart failure - wt 9 kg up, down 3 kg overnight, diuresed net neg >~5L -cont IV lasix -follow I&O's, daily weights # cardiomyopathy - EF 25-30% with hypokinesis, ?alcohol induced vs ischemic, no known prior ischemic eval, note elevated trop (0.2-0.3) -cont BB, add lisinopril -cardiology consulted, will likely need angiogram prior to dc # hypertension - cont metoprolol, added geremias today # macrocytic anemia - s/p 1 u prbc's today for hgb 7.5. B12, folate levels nl. Suspect etoh related. -send iron studies, could be mixed disorder # acute hypernatremia- sodium 151 -> 147 this a.m.-No significant p.o. Intake secondary to mental status - some progress with speech therapy, able to take honey thick liquids - follow # etOH abuse and w/d - doubt w/d as 10 days into hospitalization - continue thiamine # dorsum of hand rash - porphyrins negative - psoriasis vs eczema? - topical HC # genital lesions, bacterial per ID # abnormal ECG s/p negative cath # htn - cont oral metoprolol # FEN - regular diet, honey thick liquids ok per speech # ppx - lovenox, pepcid # disposition greater than 2 midnights as remains encephalopathic requiring higher level of medical supporting care Discussed the case with Dr. Vazquez Subjective: Pt doing a little better, still has wet cough. No fevers. Voice is stronger, able to speak a little louder today. No CP or SOB at rest. Objective: Vital Signs Temp Pulse Resp BP Pulse Ox 36.8 C 97 16 149/92 H 99 07/28/17 07:54 07/28/17 07:54 07/28/17 07:54 07/28/17 07:54 07/28/17 07:54 Laboratory Results 07/28/17 06:00 07/28/17 06:00 07/27/17 07/28/17 07/29/17 05:59 05:59 05:59 Intake Total 100 1140 Output Total 3550 2425 Balance -3450 -1285 PT 13.8 SEC (12.0-15.0) 07/11/17 19:25 INR 1.04 (0.83-1.16) 07/11/17 19:25 - Physical Exam Constitutional: no apparent distress Eyes: PERRL Ears, Nose, Mouth, Throat: moist mucous membranes Cardiovascular: regular rate and rhythym Respiratory: no respiratory distress, reduced air movement, inspiratory crackles Gastrointestinal: normoactive bowel sounds, soft, non-tender abdomen Skin: warm Musculoskeletal: other (1+ b/l LE pitting edema, improved today) Neurologic: AAOx3 Psychiatric: interacting appropriately ICD10 Worksheet Patient Problems: Problems Problem Status Onset Alcoholic intoxication Acute Elevated troponin Acute Scrotal infection Acute
[2017-07-28] MEDS ORDERED: POTASSIUM CL 20 MEQ/15 ML UDCUP PO ONE ×2 (11:15→11:30)
[2017-07-28] MEDS ORDERED: POTASSIUM CL 20 MEQ TAB PO SCH (11:15)
[2017-07-28] MEDS: BUDESONIDE/FORMOTEROL 160/4.5 60 PUFFS/MDI IH SCH ×2 (12:05→22:00)
--- NOTE | 2017-07-28 12:47 | ASMTCMCOM ---
CM Note CM Note Notes: Patient's children plan to fly him back to [place] when he is cleared medically to fly. Date Signed: 07/28/2017 12:46 PM Electronically Signed By:Enedina Sibley LCSW
[2017-07-28] MEDS: ACETAMINOPHEN 325 MG TAB PO PRN ×2 (13:01→21:57)
--- NOTE | 2017-07-28 19:27 | GCON ---
[f rep st] CONSULTATION DATE OF CONSULTATION: 07/28/2017 The patient is a 57-year-old man who was admitted to the hospital on 07/11 with complaints of shortne ss of breath and chest pain. He was also thought to have a COPD exacerbation, alcoholism, and electr olyte abnormalities. He was admitted with a similar condition 05/25/2017. The patient was actually seen for dynamic EKG changes and chest pain by Dr. Konstantin Lopez and underwent emergency heart cat heterization on 07/11/2017. His troponin at that time was also noted to be elevated. Shortly therea fter, the patient was noted to have an infectious process and pneumonia and was ultimately admitted t o the ICU in critical condition with a probable aspiration pneumonia. He has been in the hospital si aze 07/11 and was recently extubated and placed on more standard therapies for cardiomyopathy. Today , the patient feels better and denies chest pain, pressure, and tightness. He still remains somewhat short of breath. PHYSICAL EXAMINATION: His blood pressure is 139/96, pulse is 86 and regular, respirations 16 and unl abored. Oxygen saturation is 97% on 2 L by nasal cannula. He is afebrile at 37.2 as an axillary aye surements. NECK: Reveals no JVD. HEART: A summation S3, S4 gallop. I do not appreciate a murmur. LUNGS: Clear to auscultation anteriorly with decreased breath sounds posteriorly, especially on th e left side. ABDOMEN: Is positive bowel sounds. Nondistended. Nontender. EXTREMITIES: Warm, dry, and well perfused without significant peripheral edema. LABORATORY STUDIES: N-terminal proBNP from 07/26 of 7830. BUN and creatinine are normal at 7 and 0. 9. Sodium is 147, potassium 3.5, chloride 107, carbon dioxide 29, anion gap is 11. On telemetry, he is in sinus rhythm at a rate of 86. A recent EKG was not performed. He did have an echocardiogram revealing reduced ejection fraction at 25-30 with mild pulmonary hypertension. He bernal s been ruled out for pulmonary embolus during this hospitalization on the 12 of July. He does have an elevated D-dimer, but given how ill he has been, this would not be surprising. He did have a heart cath on 07/11/2017. I reviewed the raw data images of that heart catheterization. He did not have evidence of flow-limiting obstruction, dissection, or thrombus, in any of the right or left cor onary system. 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 He does have a fairly large left-sided pleural effusion on the echocardiogram, as well, without evidence of a pericardial effusion. If he continues to be short of breath and does not clear that 3rd space fluid with Lasix, it may be reasonable to consider an ultrasound-guided thoracentesis to help move along his convalescence. I do not see an indication for repeat catheterization. I thi nk he should do well with standard therapies for cardiomyopathy, as I mentioned, including an ARB med ication or FABIO inhibitor along with beta shani and a loop diuretic. He obviously needs to abstain from alcohol. I have explained that alcohol toxicity can cause a cardiomyopathy, which usually resol ves if patient stops drinking. Will sign off, and please re-consult us as needed on this patient. Copy requested to: Primary Care Physician /[id number]/MODL
[2017-07-28] MEDS: MELATONIN 3 MG TAB PO SCH (21:15)
[2017-07-29] MEDS: IPRATROPIUM/ALBUTEROL 3 ML DEYVIAL IH SCH ×4 (05:49→20:45)
--- NOTE | 2017-07-29 07:21 | HOSPPROG ---
Hospitalist Progress Note Assessment/Plan: # acute hypoxic resp failure - aspiration PNA plus volume overload. extubated . rpt cxr yest pers reviewed / interpreted - improving infiltrates b/l. Suspect element of COPD as well. Oxygen saturations improved, 94% on room air. - completed abx course - cont diuresis - cont nebs, consider spiriva, albuterol inhalers at d/c # aspiration pna - Stenotrophomonas in bronch cx, completed atbx - cont ST support - working on vocal strength and swallow # acute systolic heart failure / volume overload - crackles resolved, LE edema improving, wt down, diuresing net neg daily -cont IV lasix today, change to po tomorrow noting rising CO2 and improved exam -follow I&O's, daily weights # cardiomyopathy - EF 25-30% with hypokinesis, likely alcohol induced. Discussed with cards, defer AICD, favor med management for now. -cont BB, ARB (FABIO d/c'd today due to cough) -pt had neg angiogram this hospitalization -cont to encourage etoh cessation # hypertension - sub-optimal control -change metoprolol to coreg, up-titrate as indicated -change fabio to ARB due to cough # macrocytic anemia - s/p 1 u prbc's today for hgb 7.5. B12, folate levels nl. Suspect etoh related. -send iron studies, could be mixed disorder # acute hypernatremia- sodium 151 -> 147 this a.m.- had poor po intake, improving now - some progress with speech therapy, taking honey thick liquids - cont to follow # hypokalemia - in setting of diuresis - scheduled K replacement plus protocol, follow # etOH abuse and w/d - no more w/d, ~2 weeks into hospitalizatoin - continue thiamine # acute encephalopathy - multifactorial 2/2 etOH w/d and pna- improved - cont PT/OT/ST # dorsum of hand rash - porphyrins negative - psoriasis vs eczema? - topical HC # genital lesions, bacterial per ID # abnormal EKG - neg angiogram # FEN - regular diet, honey thick liquids ok per speech # ppx - lovenox, pepcid # disposition - cont inpt, possible d/c in 1-2 days, will need SNF. Sons plans to take him home to the [facility] at some point. Subjective: Pt doing ok, still weak. Complains of cough (started lisinopril a couple days ago). No fevers. Breathing improved. Improved oral intake. Objective: Vital Signs Temp Pulse Resp BP Pulse Ox 36.4 C 90 18 143/99 H 93 07/29/17 00:00 07/29/17 05:52 07/29/17 05:52 07/29/17 00:00 07/29/17 00:00 Laboratory Results 07/28/17 06:00 07/29/17 05:41 07/28/17 07/29/17 07/30/17 05:59 05:59 05:59 Intake Total 1140 450 Output Total 2425 2250 Balance -1285 -1800 PT 13.8 SEC (12.0-15.0) 07/11/17 19:25 INR 1.04 (0.83-1.16) 07/11/17 19:25 - Physical Exam Constitutional: no apparent distress Eyes: PERRL Ears, Nose, Mouth, Throat: moist mucous membranes Cardiovascular: regular rate and rhythym Respiratory: no respiratory distress, clear to auscultation Gastrointestinal: normoactive bowel sounds, soft, non-tender abdomen Skin: warm Musculoskeletal: full muscle strength, other (1+ b/l LE pitting edema, improving ) Neurologic: AAOx3 Psychiatric: interacting appropriately ICD10 Worksheet Patient Problems: Problems Problem Status Onset Alcoholic intoxication Acute Elevated troponin Acute Scrotal infection Acute
[2017-07-29] MEDS ORDERED: MAGNESIUM SULF 1 GM/DEXTROSE 100 ML IV ONE (07:46)
[2017-07-29] MEDS: POTASSIUM CL 20 MEQ/15 ML UDCUP PO SCH ×2 (08:41→21:47)
[2017-07-29] MEDS: ENOXAPARIN 40 MG/0.4 ML SYR SC SCH (08:41)
[2017-07-29] MEDS: METOPROLOL TARTRATE 50 MG TAB PO SCH (08:42)
[2017-07-29] MEDS: FUROSEMIDE 20 MG/2 ML VIAL IVP SCH ×2 (08:42→15:16)
[2017-07-29] MEDS: CETIRIZINE 10 MG TAB PO SCH (08:42)
[2017-07-29] MEDS: THIAMINE HCL 100 MG TAB PO SCH (08:42)
[2017-07-29] MEDS: FERROUS SULFATE 325 MG TAB PO SCH ×2 (08:42→21:48)
[2017-07-29] MEDS: ASPIRIN EC 81 MG TAB PO SCH (08:42)
[2017-07-29] MEDS: NYSTATIN 15 GM OINTMENT TP SCH ×2 (08:42→22:02)
[2017-07-29] MEDS: NICOTINE 7 MG/24 HR PATCH TD SCH (08:42)
[2017-07-29] MEDS: LISINOPRIL 5 MG TAB PO SCH (08:42)
[2017-07-29] MEDS: FOLIC ACID 1 MG TAB PO SCH (08:42)
[2017-07-29] MEDS: FAMOTIDINE 20 MG TAB PO SCH (08:42)
[2017-07-29] MEDS ORDERED: POTASSIUM CL 20 MEQ/15 ML UDCUP PO SCH (09:00)
[2017-07-29] MEDS ORDERED: POTASSIUM CL 10 MEQ TAB PO ONE ×2 (09:13→20:48)
[2017-07-29] MEDS ORDERED: POTASSIUM CL 20 MEQ/15 ML UDCUP PO ONE (10:15)
[2017-07-29] MEDS: BUDESONIDE/FORMOTEROL 160/4.5 60 PUFFS/MDI IH SCH ×3 (10:35→20:45)
[2017-07-29] MEDS: CARVEDILOL 25 MG TAB PO SCH (17:36)
[2017-07-29] MEDS: ACETAMINOPHEN 325 MG TAB PO PRN (17:38)
[2017-07-29] MEDS: MELATONIN 3 MG TAB PO SCH (21:48)
[2017-07-30] MEDS: BUDESONIDE/FORMOTEROL 160/4.5 60 PUFFS/MDI IH SCH ×2 (05:46→22:21)
[2017-07-30] MEDS: IPRATROPIUM/ALBUTEROL 3 ML DEYVIAL IH SCH ×4 (05:46→22:20)
[2017-07-30] MEDS ORDERED: MAGNESIUM SULF 1 GM/DEXTROSE 100 ML IV ONE (07:59)
[2017-07-30] MEDS ORDERED: POTASSIUM CL 20 MEQ/15 ML UDCUP PO ONE (08:15)
[2017-07-30] MEDS ORDERED: POTASSIUM CL 10 MEQ TAB PO ONE (08:15)
[2017-07-30] MEDS ORDERED: FUROSEMIDE 40 MG TAB PO SCH (09:00)
[2017-07-30] MEDS: NYSTATIN 15 GM OINTMENT TP SCH ×2 (09:16→20:14)
[2017-07-30] MEDS: NICOTINE 7 MG/24 HR PATCH TD SCH (09:17)
[2017-07-30] MEDS: ENOXAPARIN 40 MG/0.4 ML SYR SC SCH (09:17)
[2017-07-30] MEDS: POTASSIUM CL 20 MEQ/15 ML UDCUP PO SCH (09:17)
[2017-07-30] MEDS: CARVEDILOL 25 MG TAB PO SCH ×2 (09:18→17:20)
[2017-07-30] MEDS: IRBESARTAN 150 MG TAB PO SCH (09:18)
[2017-07-30] MEDS: ASPIRIN EC 81 MG TAB PO SCH (09:18)
[2017-07-30] MEDS: FAMOTIDINE 20 MG TAB PO SCH (09:18)
[2017-07-30] MEDS: FERROUS SULFATE 325 MG TAB PO SCH ×2 (09:18→20:04)
[2017-07-30] MEDS: FOLIC ACID 1 MG TAB PO SCH (09:18)
[2017-07-30] MEDS: THIAMINE HCL 100 MG TAB PO SCH (09:18)
[2017-07-30] MEDS: CETIRIZINE 10 MG TAB PO SCH (09:18)
[2017-07-30] MEDS: ACETAMINOPHEN 325 MG TAB PO PRN (10:32)
--- NOTE | 2017-07-30 12:57 | HOSPPROG ---
Hospitalist Progress Note Assessment/Plan: # acute hypoxic resp failure - aspiration PNA plus volume overload. extubated . rpt cxr yest pers reviewed / interpreted - improving infiltrates b/l. Suspect element of COPD as well. Oxygen saturations improved, 94% on room air. - completed abx course - cont diuresis - cont nebs, consider spiriva, albuterol inhalers at d/c # aspiration pna - Stenotrophomonas in bronch cx, completed atbx - cont ST support - working on vocal strength and swallow # acute systolic heart failure / volume overload - crackles resolved, LE edema improving, wt down, diuresing net neg daily * lasix bid today # cardiomyopathy - EF 25-30% with hypokinesis, likely alcohol induced. Discussed with cards, defer AICD, favor med management for now. -cont BB, ARB (FABIO d/c'd today due to cough) -pt had neg angiogram this hospitalization -cont to encourage etoh cessation # hypertension - sub-optimal control -change metoprolol to coreg, up-titrate as indicated -change fabio to ARB due to cough # macrocytic anemia - s/p 1 u prbc's today for hgb 7.5. B12, folate levels nl. Suspect etoh related. -send iron studies, could be mixed disorder # acute hypernatremia- sodium 151 -> 147 this a.m.- had poor po intake, improving now - some progress with speech therapy, taking honey thick liquids - cont to follow # hypokalemia - in setting of diuresis - scheduled K replacement plus protocol, follow # etOH abuse and w/d - no more w/d, ~2 weeks into hospitalizatoin - continue thiamine # acute encephalopathy - multifactorial 2/2 etOH w/d and pna- improved - cont PT/OT/ST # dorsum of hand rash - porphyrins negative - psoriasis vs eczema? - topical HC # genital lesions, bacterial per ID # abnormal EKG - neg angiogram # FEN - regular diet, honey thick liquids ok per speech # ppx - lovenox, pepcid # disposition - cont inpt, possible d/c in 1-2 days, will need SNF. Sons plans to take him home to the [facility] at some point. Subjective: pretty fatigued. some dyspnea Objective: Vital Signs Temp Pulse Resp BP Pulse Ox 36.8 C 98 16 157/103 H 90 L 07/30/17 07:25 07/30/17 07:25 07/30/17 07:25 07/30/17 07:25 07/30/17 07:25 Laboratory Results 07/28/17 06:00 07/30/17 05:05 07/29/17 07/30/17 07/31/17 05:59 05:59 05:59 Intake Total 450 1140 200 Output Total 2250 1650 Balance -1800 -510 200 PT 13.8 SEC (12.0-15.0) 07/11/17 19:25 INR 1.04 (0.83-1.16) 07/11/17 19:25 - Physical Exam Constitutional: no apparent distress, appears nourished, not in pain Eyes: anicteric sclera, EOMI Ears, Nose, Mouth, Throat: moist mucous membranes, hearing normal Cardiovascular: regular rate and rhythym, systolic murmur, edema (1+) Respiratory: no respiratory distress, rhonchi (bilateral) Gastrointestinal: normoactive bowel sounds, soft, non-tender abdomen, no palpable masses Skin: warm, normal color Neurologic: AAOx3 Psychiatric: interacting appropriately, not anxious, not encephalopathic, thought process linear ICD10 Worksheet Patient Problems: Problems Problem Status Onset Alcoholic intoxication Acute Elevated troponin Acute Scrotal infection Acute
--- NOTE | 2017-07-30 14:46 | ASMTCMCOM ---
CM Note CM Note Notes: CM met w/ pt for dispo planning. Therapies are recommending SNF. Pt would like to go to a SNF. Referrals made to [facility] and [facility]. CM completed non triggering pasrr. CM to follow. Plan: TBD Date Signed: 07/30/2017 02:45 PM Electronically Signed By:SUZIE Villegas
[2017-07-30] MEDS: FUROSEMIDE 40 MG TAB PO SCH (15:07)
--- NOTE | 2017-07-30 17:05 | SOAPPROG ---
SOAP Progress Note Assessment/Plan: Assessment: 57 M with hx etoh found by roommates sitting in his own feces and intoxicated, admitted 07/11/17 with aspiration PNA, Hx ETOH. * Acute respiratory failure with hypoxia- resolved, required urgent/emergent intubation on 07/16/17. Large mucous plug removed from left main stem early on. Extubated 07/20. Infiltrates slow to resolve, impart secondary to postinfectious inflammatory change as well as congestive heart failure. * PNA - aspiration. Completed Unasyn. S. Maltophilia grew from BAL, but probably colonization as he improved without significant therapy/Bactrim. Passed his swallow evaluation 07/25. CXR showing slow improvement in infiltrates and effusions with diuresis. * Cardiomyopathy/CHF: Ejection fraction approximately 30%. Likely 2nd to alcohol. Catheterization was negative. Appreciate Cardiology consult. Weight is significantly down with Lasix diuresis. * EtOH w/d- resolved. * COPD, ongoing tobacco abuse. On inhaled therapies, nicotine patch. * Hypernatremia: Normalized, resolved * Macrocytic anemia: Stable, HCT 28. Plan: Continue care, bronchopulmonary therapies, Lasix diuresis. Oxygen as needed. Increase mobilization as tolerated. From a pulmonary standpoint there are no contraindications to discharge in the next several days. Subjective: Feels better, not much cough or mucus. No chest pain. Dyspnea on exertion seems to be improved. Patient is somewhat vague regarding details. Objective: Vital Signs Temp Pulse Resp BP Pulse Ox 36.6 C 94 15 149/101 H 94 07/30/17 16:00 07/30/17 16:51 07/30/17 16:51 07/30/17 16:00 07/30/17 16:51 Laboratory Results 07/28/17 06:00 07/30/17 05:05 07/29/17 07/30/17 07/31/17 05:59 05:59 05:59 Intake Total 450 1140 440 Output Total 2250 1650 300 Balance -1800 -510 140 PT 13.8 SEC (12.0-15.0) 07/11/17 19:25 INR 1.04 (0.83-1.16) 07/11/17 19:25 CXR 07/28: Improving bilateral infiltrates and effusions. Physical Exam - Physical Exam General Appearance: alert, no apparent distress EENT: other (On oxygen at 1-2 L, saturations okay. Approximately 90 to upper 80s on room air at rest.) Neck: normal inspection (No obvious JVD) Respiratory: lungs clear (Anteriorly), decreased breath sounds (At the bases), rales (Few rales bilaterally), prolonged expiration, No rhonchi (No jw rhonchi. Mild congestion with cough), No wheezing Cardiac/Chest: regular rate, rhythm, gallop Abdomen: normal bowel sounds, non-tender, soft Skin: normal color, warm/dry Extremities: pedal edema (1+, decreased) Neuro/Psych: no motor/sensory deficits, No cognition abnormalities ICD10 Worksheet Patient Problems: Problems Problem Status Onset Alcoholic intoxication Acute Scrotal infection Acute Elevated troponin Acute
[2017-07-30] MEDS: MELATONIN 3 MG TAB PO SCH (20:04)
[2017-07-30] MEDS: guaiFENesin 600 MG TAB.ER PO SCH (20:04)
[2017-07-30] MEDS: KETOROLAC 30 MG/1 ML SDV IVP PRN (20:10)
[2017-07-31] MEDS: KETOROLAC 30 MG/1 ML SDV IVP PRN ×3 (02:13→20:36)
[2017-07-31] MEDS: GUAIFENESIN/DM 10 ML UDCUP PO PRN ×2 (02:13→11:25)
[2017-07-31] MEDS: IPRATROPIUM/ALBUTEROL 3 ML DEYVIAL IH SCH ×4 (05:56→21:06)
[2017-07-31] MEDS ORDERED: MAGNESIUM SULF 1 GM/DEXTROSE 100 ML IV ONE (07:47)
[2017-07-31] MEDS: NICOTINE 7 MG/24 HR PATCH TD SCH (08:05)
[2017-07-31] MEDS: ENOXAPARIN 40 MG/0.4 ML SYR SC SCH (08:05)
[2017-07-31] MEDS: POTASSIUM CL 20 MEQ/15 ML UDCUP PO SCH (08:05)
[2017-07-31] MEDS: IRBESARTAN 150 MG TAB PO SCH (08:06)
[2017-07-31] MEDS: guaiFENesin 600 MG TAB.ER PO SCH ×2 (08:06→20:38)
[2017-07-31] MEDS: FERROUS SULFATE 325 MG TAB PO SCH ×2 (08:06→20:38)
[2017-07-31] MEDS: FOLIC ACID 1 MG TAB PO SCH (08:07)
[2017-07-31] MEDS: ASPIRIN EC 81 MG TAB PO SCH (08:07)
[2017-07-31] MEDS: CARVEDILOL 25 MG TAB PO SCH ×2 (08:07→17:13)
[2017-07-31] MEDS: CETIRIZINE 10 MG TAB PO SCH (08:07)
[2017-07-31] MEDS: FAMOTIDINE 20 MG TAB PO SCH (08:07)
[2017-07-31] MEDS: FUROSEMIDE 40 MG TAB PO SCH ×2 (08:07→15:02)
[2017-07-31] MEDS: THIAMINE HCL 100 MG TAB PO SCH (08:07)
[2017-07-31] MEDS: NYSTATIN 15 GM OINTMENT TP SCH ×2 (08:15→09:00)
[2017-07-31] MEDS: BUDESONIDE/FORMOTEROL 160/4.5 60 PUFFS/MDI IH SCH ×2 (10:48→21:05)
--- NOTE | 2017-07-31 14:04 | HOSPPROG ---
Hospitalist Progress Note Assessment/Plan: # acute hypoxic resp failure - aspiration PNA plus volume overload. extubated . rpt cxr yest pers reviewed / interpreted - improving infiltrates b/l. Suspect element of COPD as well. Oxygen saturations improved, 94% on room air. - completed abx course - cont diuresis - cont nebs, albuterol inhalers at d/c # aspiration pna - Stenotrophomonas in bronch cx, completed atbx - cont ST support - working on vocal strength and swallow # acute systolic heart failure / volume overload - crackles resolved, LE edema improving, wt down, diuresing net neg daily * lasix bid # cardiomyopathy - EF 25-30% with hypokinesis, likely alcohol induced. Discussed with cards, defer AICD, favor med management for now. -cont BB, ARB (FABIO d/c'd today due to cough) -pt had neg angiogram this hospitalization -cont to encourage etoh cessation # hypertension - sub-optimal control -change metoprolol to coreg, up-titrate as indicated -change fabio to ARB due to cough # macrocytic anemia - s/p 1 u prbc's today for hgb 7.5. B12, folate levels nl. Suspect etoh related. -on iron - probably mixed # etOH abuse and w/d - no more w/d, ~2 weeks into hospitalizatoin - continue thiamine # acute encephalopathy - multifactorial 2/2 etOH w/d and pna- improved - cont PT/OT/ST # dorsum of hand rash - porphyrins negative - psoriasis vs eczema? - topical HC # genital lesions, bacterial per ID * they thought he may need outpatient derm evaluation. It does seem to get better with abx per patient. HSV was negative outpatient # ppx - lovenox, # disposition - hopefully can go to snf tomorrow Subjective: coughing is better. c/o return of itch/irritation of penis/scrotum Objective: Vital Signs Temp Pulse Resp BP Pulse Ox 36.6 C 80 16 136/97 H 92 07/31/17 11:01 07/31/17 11:01 07/31/17 11:01 07/31/17 11:01 07/31/17 11:01 Laboratory Results 07/28/17 06:00 07/31/17 05:15 07/30/17 07/31/17 08/01/17 05:59 05:59 05:59 Intake Total 1140 890 Output Total 1650 1500 200 Balance -510 -610 -200 PT 13.8 SEC (12.0-15.0) 07/11/17 19:25 INR 1.04 (0.83-1.16) 07/11/17 19:25 - Physical Exam Constitutional: no apparent distress, appears nourished, not in pain Eyes: anicteric sclera, EOMI Ears, Nose, Mouth, Throat: moist mucous membranes, hearing normal Cardiovascular: regular rate and rhythym, no murmur, rub, or gallop Respiratory: no respiratory distress, rhonchi (occasional) Genitourinary: other (slight erythema of left side of penis shaft and scrotum) Neurologic: AAOx3 Psychiatric: interacting appropriately, not anxious, not encephalopathic, thought process linear ICD10 Worksheet Patient Problems: Problems Problem Status Onset Alcoholic intoxication Acute Elevated troponin Acute Scrotal infection Acute
--- NOTE | 2017-07-31 16:23 | ASMTCMCOM ---
CM Note CM Note Notes: CM met w/ pt numerous times to discuss discharge plans. Pt has been declined at [facility] and [facility] because they do not take VA insurance. New referrals made to [facility] and [facility]. [facility] has turned pt down and [facility] reports that they do not take VA insurance. Referral made to [facility]. Msg left for Thayer to discuss pts case. Pt reports that his lease at his rooming house ends today. Pt reports that his kids do not want him to return back to that rooming house. CM and pt discussed his eoth use. Pt reports that all of his roommates drink. Pt reports that AA doesn't help. Pt reports that he has had read the big book in the past. Pt reports that he would like to stop drinking. Pt inquired about the homeless custodial if he cannot get into a SNF. CM to follow. Plan: TBD Plan: SNF Date Signed: 07/31/2017 04:23 PM Electronically Signed By:SUZIE Villegas
[2017-07-31] MEDS: MELATONIN 3 MG TAB PO SCH (20:38)
[2017-08-01] MEDS: GUAIFENESIN/DM 10 ML UDCUP PO PRN ×3 (00:01→19:24)
[2017-08-01] MEDS: KETOROLAC 30 MG/1 ML SDV IVP PRN ×2 (03:04→11:07)
[2017-08-01 03:23] LABS: PLATELET COUNT 431 10^3/uL (150-400)
[2017-08-01] MEDS: IPRATROPIUM/ALBUTEROL 3 ML DEYVIAL IH SCH ×4 (05:52→22:03)
--- NOTE | 2017-08-01 09:26 | HOSPPROG ---
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 Cont IV diuresis. Coreg, ACEI. No CAD on cath . K, Mg okay #Acute hypoxic resp failure: due to volume overload, PNA. Completed course abx. Cont Lasix #Aspiration PNA: completed course abx #Groin/hand rash: negative HSV, porphryins. Nystatin powder. Did not improve with abx. Appreciate Dr. Johnston's help with skin biopsy. #Etoh abuse: counseled on cessation #Acute encephalopathy: resolved #Macrocytic anemia: due to Etoh. 1 unit RBC 07/27 #Deconditioning: PT rec SNF #Diet: cardiac #DVT ppx: Lovenox #Disp: cont inpatient admission for IV diuresis, serial BMP # Subjective: "groin bleeding after applpied lotion". Mild SOB Objective: Vital Signs Temp Pulse Resp BP Pulse Ox 36.4 C 90 16 138/88 H 92 08/01/17 08:00 08/01/17 08:00 08/01/17 08:00 08/01/17 08:00 08/01/17 08:00 Laboratory Results 08/01/17 03:05 08/01/17 03:05 07/31/17 08/01/17 08/02/17 05:59 05:59 05:59 Intake Total 890 650 Output Total 1500 200 Balance -610 450 PT 13.8 SEC (12.0-15.0) 07/11/17 19:25 INR 1.04 (0.83-1.16) 07/11/17 19:25 - Physical Exam Constitutional: no apparent distress Eyes: PERRL Ears, Nose, Mouth, Throat: moist mucous membranes Cardiovascular: regular rate and rhythym, JVD (to mandible), edema Respiratory: no respiratory distress, reduced air movement Gastrointestinal: normoactive bowel sounds, soft, non-tender abdomen Genitourinary: no bladder fullness, other (groin with macuopapular rash, appears candidial. No bleeding) Skin: warm Musculoskeletal: full muscle strength Neurologic: AAOx3 Psychiatric: flat affect, other (tangential, difficult to stay on point with questioning) ICD10 Worksheet Patient Problems: Problems Problem Status Onset Alcoholic intoxication Acute Elevated troponin Acute Scrotal infection Acute
[2017-08-01] MEDS: ENOXAPARIN 40 MG/0.4 ML SYR SC SCH (09:32)
[2017-08-01] MEDS: IRBESARTAN 150 MG TAB PO SCH (09:32)
[2017-08-01] MEDS: NICOTINE 7 MG/24 HR PATCH TD SCH (09:34)
[2017-08-01] MEDS: FUROSEMIDE 40 MG TAB PO SCH ×2 (09:34→15:10)
[2017-08-01] MEDS: CARVEDILOL 25 MG TAB PO SCH ×2 (09:34→19:24)
[2017-08-01] MEDS: FERROUS SULFATE 325 MG TAB PO SCH ×2 (09:35→21:19)
[2017-08-01] MEDS: THIAMINE HCL 100 MG TAB PO SCH (09:35)
[2017-08-01] MEDS: CETIRIZINE 10 MG TAB PO SCH (09:35)
[2017-08-01] MEDS: FOLIC ACID 1 MG TAB PO SCH (09:35)
[2017-08-01] MEDS: guaiFENesin 600 MG TAB.ER PO SCH ×2 (09:35→21:20)
[2017-08-01] MEDS: ASPIRIN EC 81 MG TAB PO SCH (09:35)
[2017-08-01] MEDS: POTASSIUM CL 20 MEQ/15 ML UDCUP PO SCH (09:50)
[2017-08-01] MEDS: BUDESONIDE/FORMOTEROL 160/4.5 60 PUFFS/MDI IH SCH ×2 (11:06→22:04)
[2017-08-01] MEDS ORDERED: LIDOCAINE 1% 5 ML SDV IF ONE (13:45)
[2017-08-01] MEDS: IBUPROFEN 600 MG TAB PO PRN ×2 (15:10→21:19)
--- NOTE | 2017-08-01 15:32 | WOCRNPDOC ---
WOCRN Advanced Assessment Note - Skin Integrity Problem, Advanced Assess Generalized Genital Area Dressing Type: Open to Air Exudate Amount: None Wound Bed Color: Red (raised, maculopapular rash) Site Odor: None Skin Integrity Problem Comment: Received consult request to evaluate "groin maceration." Upon assessment, after patient had showered, red, hardened maculopapular rash noted on scrotum and upper inner thighs. No maceration observed. Appearance somewhat like tinea cruris, though patient says he was previously treated w/ antibiotics for this condition and it "went away." Surgeon to biopsy site today, as this is recurrent. Wound care does not need to be involved ongoing. Hospitalist can write for anti-fungal cream if biopsy is negative.
--- NOTE | 2017-08-01 16:12 | ASMTCMCOM ---
CM Note CM Note Notes: CM spoke w/ Benjamin (P#: [phone]), the hospice care transitions coordinator at [facility]. Benjamin had pts veterans insurance verified and pt is a "non service connected of 70%", meaning pt does not have SNF benefits. CM contacted [facility] and notified them to see if pt could be eligible for Medicaid. CM was told by Benjamin that they accept Medicaid and pt is appropriate clinically. CM met w/ pt for dispo planning. CM provided pt updates. Pt requested that he gets a copy of his identification card. Pt reports that he lost his wallet recently. CM provided pt w/ a copy of his identification card from medical records. CM to follow. Plan: SNF Date Signed: 08/01/2017 04:11 PM Electronically Signed By:SUZIE Villegas
--- NOTE | 2017-08-01 18:03 | SOAPPROG ---
SOAP Progress Note Assessment/Plan: Assessment: 57 M with hx etoh found by roommates sitting in his own feces and intoxicated, admitted 07/11/17 with aspiration PNA, Hx ETOH. * Acute respiratory failure with hypoxia- resolved, required urgent/emergent intubation on 07/16/17. Large mucous plug removed from left main stem early on. Extubated 07/20. Infiltrates slow to resolve, impart secondary to postinfectious inflammatory change as well as congestive heart failure. * PNA - aspiration. Completed Unasyn. S. Maltophilia grew from BAL, but probably colonization as he improved without significant therapy/Bactrim. Passed his swallow evaluation 07/25. CXR showing slow improvement in infiltrates and effusions with diuresis. * Cardiomyopathy/CHF: Ejection fraction approximately 30%. Likely 2nd to alcohol. Catheterization was negative. Appreciate Cardiology consult. Weight is significantly down with Lasix diuresis. * EtOH w/d- resolved. * COPD, ongoing tobacco abuse. On inhaled therapies, nicotine patch. * Hypernatremia: Normalized, resolved * Macrocytic anemia: Stable, HCT 28. * Skin rash: For biopsy Plan: Continue care, bronchopulmonary therapies, Lasix. Oxygen as needed. Increase mobilization. From a pulmonary standpoint there are no contraindications to discharge in the next several days. SNF placement being evaluated. For skin biopsy. Subjective: Complains of"pain all over". Denies shortness of breath. No cough or mucus at this point Objective: Vital Signs Temp Pulse Resp BP Pulse Ox 36.8 C 87 17 142/98 H 93 08/01/17 16:56 08/01/17 16:56 08/01/17 16:56 08/01/17 16:56 08/01/17 16:56 Laboratory Results 08/01/17 03:05 08/01/17 03:05 07/31/17 08/01/17 08/02/17 05:59 05:59 05:59 Intake Total 890 650 Output Total 1500 200 Balance -610 450 PT 13.8 SEC (12.0-15.0) 07/11/17 19:25 INR 1.04 (0.83-1.16) 07/11/17 19:25 Physical Exam - Physical Exam General Appearance: alert, no apparent distress, thin EENT: other (On room air) Neck: normal inspection Respiratory: lungs clear (Anteriorly), decreased breath sounds (At bases), rales (Minimal), prolonged expiration, No wheezing Cardiac/Chest: regular rate, rhythm Abdomen: normal bowel sounds, non-tender, soft Skin: normal color, warm/dry, rash (Hands, groin area) Extremities: pedal edema (1+) Neuro/Psych: no motor/sensory deficits, No cognition abnormalities ICD10 Worksheet Patient Problems: Problems Problem Status Onset Alcoholic intoxication Acute Scrotal infection Acute Elevated troponin Acute
[2017-08-01] MEDS: NYSTATIN POWDER 15 GM BTL TP SCH ×2 (19:26→22:32)
--- NOTE | 2017-08-01 20:49 | POSTOPPROG ---
Post Op Note Date of Operation: 08/01/17 Surgeon: Lucas Johnston Anesthesia: Local (Specify) (3cc 1% lidocaine) Pre-op Diagnosis: rash left proximal medial thigh Post-op Diagnosis: rash left proximal medial thigh Indication: biopsy for rash of left proximal medial thigh Procedure: eliptical skin biopsy left proximal thigh Findings: rash left proximal medial thigh Inf/Abcess present in the surg proc area at time of surgery?: No EBL: Minimal Total fluids administered: N/A Complications: none
[2017-08-01] MEDS: MELATONIN 3 MG TAB PO SCH (21:19)
--- NOTE | 2017-08-01 23:20 | GOP ---
[f rep st] OPERATIVE REPORT DATE OF OPERATION: 08/01/2017 SURGEON: Lucas Johnston MD ANESTHESIA: 3 cc 1% Xylocaine. PREOPERATIVE DIAGNOSIS: Rash, left proximal medial thigh. POSTOPERATIVE DIAGNOSIS: Rash, left medial proximal thigh. PROCEDURE PERFORMED: Elliptical skin biopsy of left proximal medial thigh. FINDINGS: Rash of proximal medial thigh. There was no infection present. ESTIMATED BLOOD LOSS: Minimal. INDICATIONS: Biopsy for diagnosis of rash of left proximal medial thigh. DESCRIPTION OF PROCEDURE: The patient was placed is in his bed in the supine position. The right gr oin was carefully clipped, prepped, and draped. Consent had been signed, and a time-out was agreed t o by the patient, the nurse, and me. The skin had been prepped with Betadine, and sterile surgical towels were used to create a sterile fi eld. The skin was anesthetized with 1% Xylocaine. An elliptical skin incision was made. The specim en was removed and placed in a formalin container. The container was marked skin biopsy, left proxim al medial thigh. Interrupted vertical mattress sutures of #3-0 nylon were used to approximate the sk in. This was hemostatic. Mastisol and Steri-Strips were placed. Sutures will be removed in 2 weeks. The patient tolerated the procedure well. FLUIDS: Not administered. COMPLICATIONS: None. /[id number]/MODL
[2017-08-02] MEDS ORDERED: LORazepam 1 MG TAB PO ONE (01:09)
[2017-08-02] MEDS: IBUPROFEN 600 MG TAB PO PRN ×2 (02:57→09:23)
[2017-08-02] MEDS: IPRATROPIUM/ALBUTEROL 3 ML DEYVIAL IH SCH ×4 (05:45→21:49)
[2017-08-02] MEDS ORDERED: MAGNESIUM SULF 1 GM/DEXTROSE 100 ML IV ONE (09:12)
[2017-08-02] MEDS: POTASSIUM CL 20 MEQ/15 ML UDCUP PO SCH (09:20)
[2017-08-02] MEDS: CARVEDILOL 25 MG TAB PO SCH ×2 (09:21→17:48)
[2017-08-02] MEDS: ENOXAPARIN 40 MG/0.4 ML SYR SC SCH (09:21)
[2017-08-02] MEDS: FOLIC ACID 1 MG TAB PO SCH (09:22)
[2017-08-02] MEDS: FUROSEMIDE 40 MG TAB PO SCH ×2 (09:22→15:46)
[2017-08-02] MEDS: NICOTINE 7 MG/24 HR PATCH TD SCH (09:22)
[2017-08-02] MEDS: IRBESARTAN 150 MG TAB PO SCH (09:22)
[2017-08-02] MEDS: guaiFENesin 600 MG TAB.ER PO SCH ×2 (09:22→20:32)
[2017-08-02] MEDS: THIAMINE HCL 100 MG TAB PO SCH (09:22)
[2017-08-02] MEDS: CETIRIZINE 10 MG TAB PO SCH (09:23)
[2017-08-02] MEDS: FERROUS SULFATE 325 MG TAB PO SCH ×2 (09:23→20:32)
[2017-08-02] MEDS: ASPIRIN EC 81 MG TAB PO SCH (09:23)
[2017-08-02] MEDS: BUDESONIDE/FORMOTEROL 160/4.5 60 PUFFS/MDI IH SCH ×2 (09:24→18:39)
[2017-08-02] MEDS ORDERED: CARVEDILOL 25 MG TAB PO ONE (11:09)
--- NOTE | 2017-08-02 11:09 | HOSPPROG ---
Hospitalist Progress Note Assessment/Plan: #HTN: high this morning. Increase Coreg to 25mg BID. 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 Coreg, ACEI. No CAD on cath 07/13. Lasix #Acute hypoxic resp failure: now resolved with diuresis. Completed course abx. Cont Lasix #Aspiration PNA: completed course abx #Groin/hand rash: negative HSV, syphilis, rheum eval, and porphryins. Nystatin powder. Did not improve with abx. Biopsied 08/01, path pending. #Etoh abuse: counseled on cessation #Lethargy: dosed Ativan last night. Avoid BZs or opioids #Acute encephalopathy: resolved #Macrocytic anemia: due to Etoh. 1 unit RBC 07/27 #Deconditioning: PT rec SNF #Diet: cardiac #DVT ppx: Lovenox #Disp: cont inpatient admission for IV diuresis, serial BMP # Subjective: no CP or chest pain Objective: Vital Signs Temp Pulse Resp BP Pulse Ox 36.6 C 94 20 149/104 H 90 L 08/02/17 08:00 08/02/17 08:00 08/02/17 08:00 08/02/17 08:00 08/02/17 08:00 Laboratory Results 08/01/17 03:05 08/02/17 03:10 08/01/17 08/02/17 08/03/17 05:59 05:59 06:59 Intake Total 650 1050 Output Total 200 850 Balance 450 200 PT 13.8 SEC (12.0-15.0) 07/11/17 19:25 INR 1.04 (0.83-1.16) 07/11/17 19:25 - Physical Exam Constitutional: no apparent distress, other (lethargic) Eyes: PERRL Ears, Nose, Mouth, Throat: moist mucous membranes Cardiovascular: regular rate and rhythym, JVD (to mandible), edema (+1 ankle edema) Gastrointestinal: normoactive bowel sounds, soft, non-tender abdomen Genitourinary: no bladder fullness, other (macular rash in groin region with no purluent drainage) Skin: warm Musculoskeletal: full muscle strength ICD10 Worksheet Patient Problems: Problems Problem Status Onset Alcoholic intoxication Acute Elevated troponin Acute Scrotal infection Acute
[2017-08-02] MEDS: NYSTATIN POWDER 15 GM BTL TP SCH ×4 (16:03→20:33)
[2017-08-02] MEDS ORDERED: CALAMINE 180 ML BOTTLE TP PRN (18:20)
[2017-08-02] MEDS ORDERED: IBUPROFEN 600 MG TAB PO PRN (18:22)
[2017-08-02] MEDS ORDERED: oxyCODONE IR 5 MG TAB PO ONE (18:27)
[2017-08-02] MEDS: MELATONIN 3 MG TAB PO SCH (20:32)
[2017-08-02] MEDS: ACETAMINOPHEN 325 MG TAB PO PRN (20:37)
[2017-08-03] MEDS: ACETAMINOPHEN 325 MG TAB PO PRN ×5 (00:38→22:55)
[2017-08-03] MEDS: oxyCODONE IR 5 MG TAB PO PRN (00:39)
[2017-08-03] MEDS: IPRATROPIUM/ALBUTEROL 3 ML DEYVIAL IH SCH ×4 (06:00→21:49)
[2017-08-03] MEDS: BUDESONIDE/FORMOTEROL 160/4.5 60 PUFFS/MDI IH SCH ×2 (09:10→21:49)
[2017-08-03] MEDS: ENOXAPARIN 40 MG/0.4 ML SYR SC SCH (10:26)
[2017-08-03] MEDS: FERROUS SULFATE 325 MG TAB PO SCH ×2 (10:27→20:13)
[2017-08-03] MEDS: FOLIC ACID 1 MG TAB PO SCH (10:27)
[2017-08-03] MEDS: ASPIRIN EC 81 MG TAB PO SCH (10:27)
[2017-08-03] MEDS: THIAMINE HCL 100 MG TAB PO SCH (10:27)
[2017-08-03] MEDS: CETIRIZINE 10 MG TAB PO SCH (10:27)
[2017-08-03] MEDS: FUROSEMIDE 40 MG TAB PO SCH ×2 (10:27→15:51)
[2017-08-03] MEDS: CARVEDILOL 25 MG TAB PO SCH ×2 (10:28→18:35)
[2017-08-03] MEDS: NICOTINE 7 MG/24 HR PATCH TD SCH (10:37)
[2017-08-03] MEDS: POTASSIUM CL 20 MEQ/15 ML UDCUP PO SCH (10:41)
[2017-08-03] MEDS: guaiFENesin 600 MG TAB.ER PO SCH ×2 (10:41→20:13)
[2017-08-03] MEDS: IRBESARTAN 150 MG TAB PO SCH (10:41)
[2017-08-03] MEDS: NYSTATIN POWDER 15 GM BTL TP SCH ×3 (11:43→22:57)
--- NOTE | 2017-08-03 12:51 | HOSPPROG ---
Hospitalist Progress Note Assessment/Plan: #HTN: improved with increase Coreg. 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 Coreg, Losartan. No CAD on cath 07/13. Lasix #Acute hypoxic resp failure: now resolved with diuresis. Completed course abx. Cont Lasix #Aspiration PNA: completed course abx #Groin wound/rash: negative HSV, syphilis, rheum eval, and porphryins. Nystatin powder. Calamine lotion. Did not improve with abx. Biopsied 08/01, path pending. #Etoh abuse: counseled on cessation #Pain: at groin. Explained on multiple occasions that opioids not appropriate. Trial Toradol, calamine, cold compress #Lethargy: dosed Ativan last night. Avoid BZs or opioids #Acute encephalopathy: resolved #Macrocytic anemia: due to Etoh. 1 unit RBC 07/27 #Deconditioning: PT rec SNF #Diet: cardiac #DVT ppx: Lovenox #Disp: cont inpatient admission for IV diuresis. Will be medically stable in 1- 2 days. CM working on Medicaid screening. He has VA benefits, but does not qualify for SNF benefits. At very high-risk for readmission, so would benefit from SNF rather than street Time spent on visit: 35 min bedside with patient, counseling on pain and coordinating DC with CM Subjective: No SOB. Asking for opioids. Refused nystatin cream Objective: Vital Signs Temp Pulse Resp BP Pulse Ox 36.5 C 78 18 147/87 H 90 L 08/03/17 09:43 08/03/17 10:28 08/03/17 09:43 08/03/17 10:41 08/03/17 09:43 Laboratory Results 08/01/17 03:05 08/03/17 05:55 08/02/17 08/03/17 08/04/17 04:59 05:59 05:59 Intake Total Output Total Balance PT 13.8 SEC (12.0-15.0) 07/11/17 19:25 INR 1.04 (0.83-1.16) 07/11/17 19:25 - Time Spent With Patient Time Spent with Patient: greater than 35 minutes Time Spent with Patient: Greater than 35 minutes spent on this patients care, greater than 50% of time spent counseling, educating, and coordinating care regarding the above mentioned plan. - Physical Exam Constitutional: other (thin) Eyes: PERRL Ears, Nose, Mouth, Throat: moist mucous membranes Cardiovascular: regular rate and rhythym, edema (+1 at ankles) Respiratory: no respiratory distress, No inspiratory crackles Gastrointestinal: normoactive bowel sounds, soft, non-tender abdomen Genitourinary: other (left medial thigh open skin/wound without purulence, no surrounding redness. ) ICD10 Worksheet Patient Problems: Problems Problem Status Onset Alcoholic intoxication Acute Elevated troponin Acute Scrotal infection Acute
[2017-08-03] MEDS: KETOROLAC 15 MG/1 ML SDV IVP PRN ×2 (13:00→20:13)
[2017-08-03] MEDS: GUAIFENESIN/DM 10 ML UDCUP PO PRN ×2 (15:51→23:05)
--- NOTE | 2017-08-03 18:01 | ASMTCMCOM ---
CM Note CM Note Notes: Spoke to patient who is interested in SNF care before being independent again. According to previous CM Notes, Patient's VA benefits do not include SNF. He has agreed to spend 30 days=H + SNF in order to be cared for in a SNF and have Medicaid as a payor. A ULTC-100 was completed and faxed to [facility] today and they have 48hrs to come an assess patient. They may not feel he is a LTC candidate and then he will need to access [facility] resources. I left a message for his son, Monty [phone] and daughter Radha [phone] to call this CM. Referrals went out to facilities who might accept Medicaid pending. Date Signed: 08/03/2017 01:59 PM Electronically Signed By:Enedina Sibley LCSW
[2017-08-03] MEDS: MELATONIN 3 MG TAB PO SCH (20:14)
[2017-08-04] MEDS: ACETAMINOPHEN 325 MG TAB PO PRN ×3 (05:08→18:41)
[2017-08-04] MEDS: oxyCODONE IR 5 MG TAB PO PRN (07:50)
[2017-08-04] MEDS: IPRATROPIUM/ALBUTEROL 3 ML DEYVIAL IH SCH ×4 (08:28→19:56)
[2017-08-04] MEDS: BUDESONIDE/FORMOTEROL 160/4.5 60 PUFFS/MDI IH SCH ×2 (09:09→19:56)
[2017-08-04] MEDS: NYSTATIN POWDER 15 GM BTL TP SCH ×3 (10:23→21:38)
[2017-08-04] MEDS: ENOXAPARIN 40 MG/0.4 ML SYR SC SCH (10:24)
[2017-08-04] MEDS: POTASSIUM CL 20 MEQ/15 ML UDCUP PO SCH (10:24)
[2017-08-04] MEDS: THIAMINE HCL 100 MG TAB PO SCH (10:25)
[2017-08-04] MEDS: CETIRIZINE 10 MG TAB PO SCH (10:25)
[2017-08-04] MEDS: guaiFENesin 600 MG TAB.ER PO SCH ×2 (10:25→19:30)
[2017-08-04] MEDS: IRBESARTAN 150 MG TAB PO SCH (10:25)
[2017-08-04] MEDS: CARVEDILOL 25 MG TAB PO SCH ×2 (10:25→18:03)
[2017-08-04] MEDS: FOLIC ACID 1 MG TAB PO SCH (10:25)
[2017-08-04] MEDS: FERROUS SULFATE 325 MG TAB PO SCH ×2 (10:25→19:30)
[2017-08-04] MEDS: ASPIRIN EC 81 MG TAB PO SCH (10:25)
[2017-08-04] MEDS: FUROSEMIDE 40 MG TAB PO SCH ×2 (10:25→14:45)
[2017-08-04] MEDS: NICOTINE 7 MG/24 HR PATCH TD SCH (10:26)
[2017-08-04] MEDS ORDERED: KETOROLAC 15 MG/1 ML SDV IVP PRN (12:07)
--- NOTE | 2017-08-04 13:37 | HOSPPROG ---
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 Coreg, Losartan. No CAD on cath 07/13. Lasix #Acute hypoxic resp failure: now resolved with diuresis. Completed course abx. Cont Lasix #Aspiration PNA: completed course abx #Groin wound/rash: negative HSV, syphilis, rheum eval, and porphryins. Nystatin powder. Calamine lotion. Did not improve with abx. Biopsied 08/01, path pending. Apply MAD cream per wound care. No NARCs. DC toradol with CDM, mild ROSA #Etoh abuse: counseled on cessation #Pain: at groin. Explained on multiple occasions that opioids not appropriate. Trial Toradol, calamine, cold compress #Lethargy: dosed Ativan last night. Avoid BZs or opioids #Acute encephalopathy: resolved #Macrocytic anemia: due to Etoh. 1 unit RBC 07/27 #Deconditioning: PT rec SNF #Diet: cardiac #DVT ppx: Lovenox #Disp: Denied SNF bc no benefits. Will plan for DC in next 1-2 days. Awaiting path Subjective: "Not a pill-popper" Objective: Vital Signs Temp Pulse Resp BP Pulse Ox 36.6 C 83 16 133/66 H 96 08/04/17 11:55 08/04/17 11:55 08/04/17 11:55 08/04/17 11:55 08/04/17 11:55 Laboratory Results 08/01/17 03:05 08/04/17 05:15 08/03/17 08/04/17 08/05/17 05:59 05:59 05:59 Intake Total 350 Output Total Balance 350 PT 13.8 SEC (12.0-15.0) 07/11/17 19:25 INR 1.04 (0.83-1.16) 07/11/17 19:25 - Time Spent With Patient Time Spent with Patient: greater than 35 minutes Time Spent with Patient: Greater than 35 minutes spent on this patients care, greater than 50% of time spent counseling, educating, and coordinating care regarding the above mentioned plan. - Physical Exam Constitutional: cachectic Eyes: PERRL Ears, Nose, Mouth, Throat: moist mucous membranes Cardiovascular: regular rate and rhythym, no murmur, rub, or gallop, edema (+1 edema ankles) Respiratory: No expiratory wheeze, No inspiratory crackles Gastrointestinal: normoactive bowel sounds, soft, non-tender abdomen Genitourinary: no bladder fullness Skin: other (left mid thigh open wound with no purulence or surrounding erythema ) Musculoskeletal: full muscle strength Neurologic: CN II-XII Intact Psychiatric: not encephalopathic, poor insight, poor judgement, poor memory ICD10 Worksheet Patient Problems: Problems Problem Status Onset Alcoholic intoxication Acute Elevated troponin Acute Scrotal infection Acute
[2017-08-04] MEDS ORDERED: KETOROLAC 15 MG/1 ML SDV IVP ONE (14:03)
[2017-08-04] MEDS: LIDO/ZINC OX/CLOTRIMAZOLE (MAD) 116 GM CREAM TP SCH ×2 (14:46→19:34)
--- NOTE | 2017-08-04 17:05 | ASMTCMCOM ---
CM Note CM Note Notes: Patient evaluated for LT medicaid for SNF. He has been declined. He has 2 adult children that live in [facility] where he is from he states that pride prevents him from returning there to be supported by family. He is verbose and easily strays from subject. He is not very receptive to [facility] bed. Options are vey limited. CM to follow. Date Signed: 08/04/2017 05:04 PM Electronically Signed By:Lashay Diaz RN
[2017-08-04] MEDS ORDERED: KETOROLAC 15 MG/1 ML SDV IVP SCH (18:00)
[2017-08-04] MEDS: GUAIFENESIN/DM 10 ML UDCUP PO PRN (19:29)
[2017-08-04] MEDS: MELATONIN 3 MG TAB PO SCH (19:30)
[2017-08-05] MEDS ORDERED: IRBESARTAN 150 MG TAB PO SCH
[2017-08-05] MEDS ORDERED: LIDO/ZINC OX/CLOTRIMAZOLE (MAD) 116 GM CREAM TP SCH
[2017-08-05] MEDS: ACETAMINOPHEN 325 MG TAB PO PRN ×4 (01:28→13:50)
[2017-08-05] MEDS: GUAIFENESIN/DM 10 ML UDCUP PO PRN (01:28)
[2017-08-05 04:03] VITALS: TEMP 97.4
[2017-08-05] MEDS: IPRATROPIUM/ALBUTEROL 3 ML DEYVIAL IH SCH ×2 (06:07→11:06)
[2017-08-05] MEDS ORDERED: DIPHENHYDRAMINE CREAM TP PRN (06:37)
[2017-08-05 07:43] VITALS: BP 149/96; PULSE 90; RESP 18; O2SAT 91
[2017-08-05] MEDS: FERROUS SULFATE 325 MG TAB PO SCH (09:26)
[2017-08-05] MEDS: CETIRIZINE 10 MG TAB PO SCH (09:26)
[2017-08-05] MEDS: THIAMINE HCL 100 MG TAB PO SCH (09:26)
[2017-08-05] MEDS: POTASSIUM CL 20 MEQ/15 ML UDCUP PO SCH (09:26)
[2017-08-05] MEDS: CARVEDILOL 25 MG TAB PO SCH (09:27)
[2017-08-05] MEDS: FOLIC ACID 1 MG TAB PO SCH (09:27)
[2017-08-05] MEDS: FUROSEMIDE 40 MG TAB PO SCH (09:27)
[2017-08-05] MEDS: ASPIRIN EC 81 MG TAB PO SCH (09:27)
[2017-08-05] MEDS: IRBESARTAN 150 MG TAB PO SCH (09:28)
[2017-08-05] MEDS: guaiFENesin 600 MG TAB.ER PO SCH (09:28)
[2017-08-05] MEDS: NICOTINE 7 MG/24 HR PATCH TD SCH (09:29)
[2017-08-05] MEDS: ENOXAPARIN 40 MG/0.4 ML SYR SC SCH (09:29)
[2017-08-05] MEDS: NYSTATIN POWDER 15 GM BTL TP SCH (09:30)
[2017-08-05] MEDS: LIDO/ZINC OX/CLOTRIMAZOLE (MAD) 116 GM CREAM TP SCH (09:30)
[2017-08-05] MEDS: BUDESONIDE/FORMOTEROL 160/4.5 60 PUFFS/MDI IH SCH (11:07)
--- NOTE | 2017-08-05 14:06 | GDS ---
[f rep st] DISCHARGE SUMMARY DISCHARGE DIAGNOSES: 1. Systolic heart failure, ejection fraction 20%-25%. 2. Acute hypoxic respiratory failure requiring intubation. Intubated 07/16 with some mucus plugging. Extubated 07/20. 3. Aspiration pneumonia. 4. Alcohol-related cardiomyopathy. 5. Alcohol withdrawal. 6. Chronic obstructive pulmonary disease. 7. Tobacco abuse. 8. Hyponatremia. 9. Macrocytic anemia. 10. Left upper thigh groin rash/lesion. HISTORY OF PRESENT ILLNESS: A 57-year-old male with history of alcohol dependence, tobacco use, cough, COPD, who initially presented with lethargy, immobility, found in his own feces and urine. He had, prior to admission, been drinking alcohol profusely for a left groin rash. Initial EKG was concerning for a STEMI and thus the patient underwent cardiac cath 07/11/2017. That showed normal coronary arteries and normal ejection fraction. HOSPITAL COURSE BY PROBLEM: 1. Acute hypoxic respiratory failure: Secondary to aspiration pneumonia/mucus plugging. Was intubated 07/16, extubated 07/20. He completed a course of antibiotics. 2. Alcohol-related cardiomyopathy/systolic heart failure: Echocardiogram 07/26, showed EF of 25%-30%, moderately severely reduced systolic function. This is likely due to alcohol. He had normal coronaries on catheterization. He was initially diuresed with IV and has been transitioned to 40 mg b.i.d. along with Coreg and losartan. He had a cough with lisinopril. He should follow up with [facility] and has an appointment tomorrow. 3. Hypertension: This improved with up titration of his Coreg. 4. Alcohol dependence: He was treated for withdrawal in the unit. No signs now. He was counseled on cessation. 5. Left upper thigh groin rash/open lesion: unclear etiology to this point. A vasculitic workup was negative including FRANKI, proteinase, myeloperoxidase, and double-stranded DNA. Syphilis and HSV were also negative. Skin biopsied: 2017, path pending. In the interim, it appears that there may be a candidal component. Patient refused nystatin as he thinks this is causing bleeding. Wound Care evaluated, started M.A.D. cream with lidocaine which should help with pain. Persistently asked for opioid, which I explained is not appropriate. He may use Tylenol. Would avoid NSAIDs with cardiomyopathy. 6. Dysphagia: speech study 07/23 showed severe dysphagia with aspiration. Recommend regular texture, honey thick liquids. Plan for repeat study today, however, patient declined. 7. Acute encephalopathy: initially with alcohol withdrawal or acute pneumonia. Now resolved. 8. Macrocytic anemia: Etoh-related. 9. Deconditioning: evaluated by PT. Would benefit a SNF, however,his benefits do not cover for this. [place] family [place], but wants to stay here in [place]. Will be discharged to the alf. DISPOSITION: Patient is stable for discharge. He was provided a night at the alf. Close follow up at [facility] My concern is that the patient will return to the ER for opioid pain medications. I do not think this is appropriate treatment for his upper thigh rash. MEDICATIONS: New medications: 1. M.A.D. cream. 2. Lasix 40 mg b.i.d. 3. Avapro 150 mg daily. 4. Coreg 25 mg daily. FOLLOW UP: 1. [facility] 07/27/2017. 2. Repeat BMP. PENDING LABS: tissue biopsy pathology PHYSICAL EXAM: VITAL SIGNS: Today, temperature 36.3, blood pressure 149/91, heart rate is in the 90s, respiration 16, 98% on room air. GENERAL: Thin male , sitting up in bed, no acute distress. HEENT: PERRLA. EOMI. Oropharynx clear. CV: Regular rate and rhythm. +1 ankle edema bilaterally. LUNGS: No crackles or wheezing. ABDOMEN: Soft, nontender, nondistended. Positive bowel sounds. : No Ortiz. MUSCULOSKELETAL: He is moving all 4 extremities. SKIN : Left upper thigh groin rash/open wound. There is no evidence of infection. There is a candidal appearance. There is no purulence. NEUROLOGIC: 2 through 12 intact. PSYCH: Alert, oriented x3. Poor insight, poor judgment. /[id number]/MODL Time spent on discharge 45 min counseling patient on medications, follow up at [facility] and pain management. LINO
--- NOTE | 2017-08-05 14:38 | ASDISCHSUM ---
Discharge Information Plan Status:Homeless/Fdc Medically Cleared to Leave:08/05/2017 Discharge Date:08/05/2017 02:31 PM CM D/C Disposition:Home, Routine, Self-Care ADT D/C Disposition:Home, Routine, Self-Care Projected Discharge Date:07/31/2017 11:00 AM Transportation at D/C:Self Discharge Delay Reason: Follow-Up Date:07/31/2017 11:00 AM Discharge Slot: Final Diagnosis:ETOH, acute encephalopathy, Asp PNA, Resp Failure Placement Information Referral Type:*Fpc/SNF Referral ID:[id number] Provider Name: Address 1: Phone Number: Address 2: Fax Number: City: Selection Factors: State: Patient Contact Information Contact Name:VICKY Relationship: Address: Home Phone: Work Phone: City: Alternate Phone: [facility]/[employer] Code: Email: Financial Information Financial Class:HMO and PPO Plans Primary Plan Desc:Veterans Primary Plan Number:[id number] Secondary Plan Desc: Secondary Plan Number: Assessment Information [facility] CM Progress Note CM Note CM Note Notes: Pt case reviewed at the request of ED Dr. Castellon. Pt's housemates called an ambulance after they returned home to find him in drunk in his own feces. Pt's STACI was >.300. ED RN Gab reported that the pt was discheveled and dirty with a skin rash, possibly shingles. Pt is a with benefits. Discharge plans should include contact and follow up care throught the MD. Date Signed: 07/11/2017 04:47 PM Electronically Signed By:Enoc Kiser LCSW [facility] CM Progress Note CM Note CM Note Notes: Pt admitted with AMS, wweakness, elevated troponins, etoh intoxication, malnutrition. S/p label drier. PT/OT evals pending. Pt is a and may not be caring for himself at home. CM will follow for any d/c needs. Date Signed: 07/12/2017 05:35 PM Electronically Signed By:EMILIE Harrison [facility] CM Progress Note CM Note CM Note Notes: Patient mumbles at best. Unable to assess what he is saying. Therapies unable to eval as yet. CM to follow. Date Signed: 07/15/2017 02:48 PM Electronically Signed By:Enedina Sibley LCSW [facility] CM Progress Note CM Note CM Note Notes: Spoke with Ethics regarding a proxy for patient. A new protocol has been implemented and when there is difficulty locating family of friends, Nurys Ross is contacted to assist with the search. Nruys has been contacted and CM will follow the progress. Patient was intubated today and will go for dialysis. His BAL was 300 at admission per toxicology screen. He lives in a fdc possibly for veterans. CM will follow. Date Signed: 07/16/2017 01:12 PM Electronically Signed By:Suzanna Romero LCSW [facility] CM Progress Note CM Note CM Note Notes: Patient is intubated and sedated so unable to talk to patient about family, friends and/or contacts. The only phone number listed is patient's cell phone. CM will follow. Date Signed: 07/18/2017 04:17 PM Electronically Signed By:Suzanna Romero LCSW [facility] Progress Note CM Note CM Note Notes: Pt is still vented and sedated, receiving tube feeds. Pt's mother Karmen Mike [phone] called today. She lives in [place] and apparently no one knew where pt was and after not getting an answer at fdc, started calling hospitals. Pt also has a son and daughter in the area. Date Signed: 07/19/2017 04:34 PM Electronically Signed By:EMILIE Harrison [facility] Progress Note CM Note CM Note Notes: Patient's son, Monty and daughter Livia are here from [place]. Met with Monty in a "Family Meeting", Manager Communication and DATA ENGINEERorange peel operator also present. Patient came to [place] for a job and was living with roommates. The job recently fell through. Monty reports that his father has had ETOH issues in the past but has never ended up ventilated. We talked about the need to learn what patient's ins might be. Monty to talk with his Dad to determine ins and/or if he receives benefits through the VA. Therapies are recommending SNF Rehab. When we know his payor source then we can talk about his options for rehab. Monty interested in his father getting ETOH rehab, but he knows that will be choice his father will have to make. Also talked about the patient naming a MPOA. Need to wait until patient clears cognitively. Patient also very close to his mother. Date Signed: 07/21/2017 05:17 PM Electronically Signed By:Enedina Sibley LCSW [facility] Progress Note CM Note CM Note Notes: I spoke with patient and his kids Monty and Radha. I explained that I confirmed patient's VA benefits with financial counseling. Per FC, the VA has not denied any claims from this hospitalization at this point. FC did say that she did not know if MD would cover any needs post-discharge. I asked patient if he had insurance through his employer, [employer] (FY, he is currently on paid furlough from [employer] right now d/t a lawsuit). He says that he does although he's not sure who the carrier is. He visited our ED 4x in April and a secondary carrier (in add'n to the VA) was never noted. I called [employer]'s HR department ([phone]) and left a voicemail requesting a call back. Patient's son Monty plans to go to his apartment today, meet his roommates, and look for any documentation about insurance. Regarding discharge planning, therapies are still recommending SNF. If VA is only healthcare provider, we will have to work through them for coverage. Patient's family clearly wants him to have SNF rehab and EtOH treatment but they feel that they have to respect patient's wishes. It's unclear what kind of grasp patient has on his situation. 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 Monty says that that's probably not feasible, as she is 80 and has a full house. All of patient's family is in [place] ([place] moved to [place] a year ago for the job at [employer]). I mentioned to the family that they could consider SNF/EtOH rehab in [place], as well. This could be a complicated discharge. Case Managment will continue working to help facilitate a safe plan. Date Signed: 07/23/2017 02:20 PM Electronically Signed By:Love Torre RN [facility] CM Progress Note CM Note CM Note Notes: I called the VA [phone] and after 35 minutes on hold was told that patient needs to enroll with the [facility] to have any services post-hospitalization. I gave the number [phone] to the patient's family to call and start the enrollment process. It is unlikely the VA will pay for any services post-hospitalization unless patient has a PCP and is enrolled with the VA. Date Signed: 07/23/2017 03:34 PM Electronically Signed By:Love Torre RN [facility] CM Progress Note CM Note CM Note Notes: Met with patient and his two children today. They have decided as a family to take their father back to [place], home, at d/c. Daughter Radha is returning to [place] today and plans to get follow-up services set up for her father there. Son Monty will stay with patient here as long as he can. Radha was given the case preparer and liner/social work professor information so she can coordinate with us her efforts with the VA. CM will follow. Date Signed: 07/25/2017 01:55 PM Electronically Signed By:Suzanna Romero LCSW [facility] CM Progress Note CM Note CM Note Notes: Patient's children plan to fly him back to [place] when he is cleared medically to fly. Date Signed: 07/28/2017 12:46 PM Electronically Signed By:Enedina Sibley LCSW [facility] CM Progress Note CM Note CM Note Notes: CM met w/ pt for dispo planning. Therapies are recommending SNF. Pt would like to go to a SNF. Referrals made to [facility] [place]. CM completed non triggering pasrr. CM to follow. Plan: TBD Date Signed: 07/30/2017 02:45 PM Electronically Signed By:SUZIE Villegas [facility] CM Progress Note CM Note CM Note Notes: CM met w/ pt numerous times to discuss discharge plans. Pt has been declined at [facility] and [facility] [place] because they do not take VA insurance. New referrals made to [facility] and [facility]. [facility] has turned pt down and [facility] reports that they do not take VA insurance. Referral made to [facility]. Msg left for [place] to discuss pts case. Pt reports that his lease at his rooming house ends today. Pt reports that his kids do not want him to return back to that rooming house. CM and pt discussed his eoth use. Pt reports that all of his roommates drink. Pt reports that AA doesn't help. Pt reports that he has had read the [employer] book in the past. Pt reports that he would like to stop drinking. Pt inquired about the homeless nursing home if he cannot get into a SNF. CM to follow. Plan: TBD Plan: SNF Date Signed: 07/31/2017 04:23 PM Electronically Signed By:SUZIE Villegas [facility] CM Progress Note CM Note CM Note Notes: PHONG spoke w/ Benjamin (P#: [phone]), the civil preparedness coordinator at [facility]. Benjamin had pts veterans insurance verified and pt is a "non service connected of 70%", meaning pt does not have SNF benefits. CM contacted [facility] and notified them to see if pt could be eligible for Medicaid. PHONG was told by Benjamin that they accept Medicaid and pt is appropriate clinically. CM met w/ pt for dispo planning. CM provided pt updates. Pt requested that he gets a copy of his identification card. Pt reports that he lost his wallet recently. CM provided pt w/ a copy of his identification card from medical records. CM to follow. Plan: SNF Date Signed: 08/01/2017 04:11 PM Electronically Signed By:SUZIE Villegas [facility] Progress Note CM Note CM Note Notes: Spoke to patient who is interested in SNF care before being independent again. According to previous CM Notes, Patient's VA benefits do not include SNF. He has agreed to spend 30 days=[facility] + SNF in order to be cared for in a SNF and have Medicaid as a payor. A ULTC-100 was completed and faxed to [facility] today and they have 48hrs to come an assess patient. They may not feel he is a LTC candidate and then he will need to access Fdc resources. I left a message for his son, Monty [phone] and daughter Radha [phone] to call this CM. Referrals went out to facilities who might accept Medicaid pending. Date Signed: 08/03/2017 01:59 PM Electronically Signed By:Enedina Sibley LCSW [facility] CM Progress Note CM Note CM Note Notes: Patient evaluated for LT medicaid for SNF. He has been declined. He has 2 adult children that live in [place] where he is from he states that pride prevents him from returning there to be supported by family. He is verbose and easily strays from subject. He is not very receptive to nursing home bed. Options are vey limited. CM to follow. Date Signed: 08/04/2017 05:04 PM Electronically Signed By:Lashay Diaz RN Case Management Discharge Plan Note Case Management Discharge Discharge Order Complete? Answers: Yes Patient to Obtain Answers: via MAP Medications Discharge Comments Notes: 08/05/2017 Case Management Note Provided 7 days of meds through the MAP program. Scheduled appointment at [facility] for 8:00 AM Sunday August 06, 2017 (tomorrow). Per [facility] pt has had multiple appointments scheduled but fails to show up for follow up. Provided [facility] info as well as [facility] info to pt. Pt refusing support from family today. Pt was deciding between d/c to nursing home or d/c back to room mates. Encouraged pt to re engage with the MD system for help with housing and medical follow up needs. Date Signed: 08/05/2017 02:36 PM Electronically Signed By:Tabatha Sears RN Intervention Information
[2017-08-05] MEDS ORDERED: FUROSEMIDE 40 MG TAB PO SCH ×2 (15:00)
[2017-08-05] MEDS ORDERED: CARVEDILOL 25 MG TAB PO SCH ×2 (18:00)
== END 2017-08-05 14:31 | disposition home or self-care (01) | DRG 166 ==
LOC: EDUNIT# → F2N 21:33 → F2W 07-21 18:50 → F2N 07-22 16:04 → F2W 07-28 13:56
PROVIDERS: ADMIT Internal Medicine; ATTEND Internal Medicine
DX: J69.0 Pneumonitis due to inhalation of food and vomit (principal); R13.12 Dysphagia, oropharyngeal phase; J96.01 Acute respiratory failure with hypoxia; G93.41 Metabolic encephalopathy; I42.6 Alcoholic cardiomyopathy; I50.21 Acute systolic (congestive) heart failure; F10.120 Alcohol abuse with intoxication, uncomplicated; Y90.8 Blood alcohol level of 240 mg/100 ml or more; F10.231 Alcohol dependence with withdrawal delirium; N17.9 Acute kidney failure, unspecified; E87.0 Hyperosmolality and hypernatremia; E87.6 Hypokalemia; D52.0 Dietary folate deficiency anemia; J44.9 Chronic obstructive pulmonary disease, unspecified; F17.210 Nicotine dependence, cigarettes, uncomplicated; E87.1 Hypo-osmolality and hyponatremia; D53.9 Nutritional anemia, unspecified; R21 Rash and other nonspecific skin eruption; I10 Essential (primary) hypertension
CPT/HCPCS: 80307; 82607-90; 83516-90; 83520-90; 84134-90; 84311-90; 85520-90; 86225-90; 92507-GN; 92526-GN; 92610-GN; 92611-GN; 97110-GP; 97116-GP; 97162-GP; 97166-GO; 97530-GO; 97530-GP; 97535-GO; C1751; C1760; G0480; J0295; J0456; J0610; J0696; J1200; J1630; J1644; J1650; J1885; J1940; J2060; J2250; J2704; J2997; J3010; J3411; J3420; J3475; J3480; J7613; P9016; P9047; Q9967